=== PATIENT | male | born 1970 | race American Indian/Alaskan Native ===

== ENCOUNTER 2017-01-07 01:07 | Inpatient (IN) | payer MEDICAID, OTHER ==
[2017-01-07 01:27] VITALS: BMI 21.1
[2017-01-07] MEDS ORDERED: methylPREDNISolone 125 MG in Sodium Chloride 0.9% 50 ML IVPB STA (01:27)
[2017-01-07] MEDS ORDERED: Albuterol-Ipratrop 3 mg / 0.5 (3 ml) UD INH STA ×3 (01:28→02:57)
--- NOTE | 2017-01-07 01:46 | ED PDOC ---
HPI: Asthma Time Seen by Provider: 01/07/17 01:22 Chief Complaint (Provider): Shortness of breath History Per: Patient History/Exam Limitations: no limitations Onset/Duration Of Symptoms: Hrs Current Symptoms Are (Timing): Still Present Associated Symptoms: Dyspnea, Cough. denies: Fever Precipitating Factors: Other (dust and bleach) Severity: Moderate Additional Complaint(s): Patient is a 46 year old male, who has a history of asthma, presents to the ED complaining of shortness of breath since earlier today. Shortness of breath is associated with wheezing and dry cough. Patient believes dust and bleach triggered his symptoms. Patient had 1 admission prior for asthma exacerbation. Denies fever. While in ED, patient became nauseous and vomited once PMD: none Past Medical History Reviewed: Historical Data, Nursing Documentation, Vital Signs - Medical History PMH: Asthma, Schizophrenia Denies: Diabetes, Hepatitis, HIV, HTN, Seizures, Sexually Transmitted Disease - Family History Family History: States: No Known Family Hx - Immunization History Hx Tetanus Toxoid Vaccination: No (unrecall) - Home Medications Home Medications: Ambulatory Orders Medication Instructions Recorded No Known Home Med 09/26/16 - Allergies Allergies/Adverse Reactions: Allergies Allergy/AdvReac Type Severity Reaction Status Date / Time No Known Allergies Allergy Verified 09/26/16 13:28 Review of Systems ROS Statement: Except As Marked, All Systems Reviewed And Found Negative Constitutional: Negative for: Fever Respiratory: Positive for: Cough, Shortness of Breath, Wheezing. Negative for: Sputum Gastrointestinal: Positive for: Nausea, Vomiting Physical Exam - Reviewed Nursing Documentation Reviewed: Yes Vital Signs Reviewed: Yes - Physical Exam Appears: Positive for: Non-toxic, In Acute Distress (moderate resp distress). Negative for: Well Head Exam: Positive for: ATRAUMATIC, NORMAL INSPECTION, NORMOCEPHALIC Skin: Positive for: Normal Color, Warm, DRY Eye Exam: Positive for: Normal appearance, EOMI Neck: Positive for: Normal, Painless ROM Cardiovascular/Chest: Positive for: Tachycardia. Negative for: Gallop, JVD Respiratory: Positive for: Wheezing (bilateral wheezing With prolong expiratory phase), Respiratory Distress (moderate). Negative for: Rales, Rhonchi Extremity: Positive for: Normal ROM Neurologic/Psych: Positive for: Alert, Oriented - Laboratory Results Result Diagrams: 01/07/17 02:01 01/07/17 02:01 - Critical Care Total Time (In Min): 30 Documented Critical Care: Time excludes all time spent performint seperately billable procedures Medical Decision Making Medical Decision Making: Time: Impression: moderate asthma exacerbation Plan: VBG Shock Panel BMP Drug Screen CBC CXR Albuterol 3 ml INH x2 Magnesium Sulfate Methylprednisolone Zofran 4 mg IM Peak Flow PRE/POST Tx UA 6:[address] Knowles who requested ICU screening. Dr Hernandez saw the patient and recommended bipap and admission to telemetry floor. Scribe Attestation: Documented by Christiano Recinos acting as a scribe for Christpoher Olson MD. Scribe Attestation: All medical record entries made by the Scribe were at my direction and personally dictated by me. I have reviewed the chart and agree that the record accurately reflects my personal performance of the history, physical exam, medical decision making, and the department course for this patient. I have also personally directed, reviewed, and agree with the discharge instructions and disposition. Disposition - Clinical Impression Clinical Impression: Asthma - Patient ED Disposition Is Patient to be Admitted: Yes Counseled Patient/Family Regarding: Studies Performed, Diagnosis - Disposition Disposition Time: 06:30 Condition: FAIR
[2017-01-07 01:52] LABS: VENOUS BLOOD GAS BASE EXCESS 3.2 mmol/L (0.0-2.0); VENOUS BLOOD GAS PCO2 64 mmHg (40-60)
[2017-01-07] MEDS ORDERED: Albuterol-Ipratrop 3 mg / 0.5 (3 ml) UD ONE ×2 (02:03→02:58)
[2017-01-07 02:05] LABS: BASO % 0.4 % (0.0-2.0); EOS # 0.3 K/uL (0.0-0.7); EOS % 5.2 % (0.0-4.0); HEMATOCRIT 40.1 % (35.0-51.0); LYMPH % 18.2 % (20.0-40.0); MEAN CELL VOLUME 93.6 fl (80.0-94.0); MEAN CORPUSCULAR HEMOGLOBIN 30.2 pg (27.0-31.0); MEAN CORPUSCULAR HGB CONC 32.3 g/dL (33.0-37.0); MEAN PLATELET VOLUME 8.8 fl (7.2-11.7); NEUT # 3.2 K/uL (1.8-7.0); NEUT % 58.2 % (50.0-75.0); NRBC % 0.2 % (0.0-0.0); RED CELL DISTRIBUTION WIDTH 13.8 % (11.5-14.5); WHITE BLOOD COUNT 5.4 K/uL (4.8-10.8)
[2017-01-07 02:08] LABS: CHLORIDE 103 mmol/L (98-107); SODIUM 143 mmol/l (132-148)
[2017-01-07 02:09] LABS: POTASSIUM 3.6 MMOL/L (3.6-5.0)
[2017-01-07 02:11] LABS: GFR AFRICAN-AMERICAN > 60
[2017-01-07 02:12] LABS: BLOOD UREA NITROGEN 8 mg/dl (9-20); CALCIUM 8.8 mg/dL (8.4-10.2); CARBON DIOXIDE 29 mmol/L (22-30); GLUCOSE,RANDOM 92 mg/dL (75-110)
[2017-01-07 06:17] LABS: ABG ALLEN TEST YES; ARTERIAL BLOOD GAS HCO3 26.9 mmol/L (21-28); ARTERIAL BLOOD GAS MODE N/C; ARTERIAL BLOOD GAS PH 7.36 (7.35-7.45); ARTERIAL BLOOD GAS PO2 59 mm/Hg (80-100)
--- NOTE | 2017-01-07 06:32 | CP.PCM.CON ---
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 He is presenting this morning with a one day history of increasing and worsening, moderate shortness of breath, associated with dry cough and wheezing. Called to evaluate patient in emergency room. Currently patient is comfortably sitting up, speaking in full sentences with mild fatigue after a few minutes, however without accessory muscle use. 92% on 6L NC. +wheezing appreciated on exam, ABG showed hypoxia with mild hypercarbia, will benefit from bipap, and may be admitted to telemetry. Recommend repeat ABG one hour after initiation of bipap, continuous steroid and bronchodilators around the clock. Consider CT chest if unimproved. Vitals are stable, patient is in no acute distress. ROS: per hpi all other systems reviewed and negative by me. 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, and possibly schizophrenia (per chart review), hernia FH: denies SH: +parts counterman tobacco use, denies ETOH , IVDU Meds: no known home meds NKDA Temp Pulse Resp BP Pulse Ox 98.7 F 92 H 18 110/64 92 L 01/07/17 05:49 01/07/17 06:38 01/07/17 05:49 01/07/17 05:49 01/07/17 05:49 GEN: WDWN, alert, cooperative HEENT: NCAT, PERRL, EOMI NECK: supple, no JVD, no lymphadenopathy CARDIAC: +S1S2 RRR LUNG: +diffuse expiratory wheezes bilaterally, no rales or rhonchi, no acute distress ABD: SOFT NT ND BSX4 NO MASSES NO HSM EXT: +pedal pulses, equal strength Back: no rash, no CVA tenderness NEURO: AAOx3 SKIN warm, dry PSYCH normal mood, normal affect 01/07/17 02:01 01/07/17 02:01 01/07/17 01/07/17 01/07/17 06:12 03:17 02:01 WBC 5.4 RBC 4.28 L Hgb 12.9 Hct 40.1 MCV 93.6 MCH 30.2 MCHC 32.3 L RDW 13.8 Plt Count 168 MPV 8.8 Neut % (Auto) 58.2 Lymph % (Auto) 18.2 L [place] % (Auto) 18.0 H Eos % (Auto) 5.2 H Baso % (Auto) 0.4 Neut # 3.2 Lymph # 1.0 [place] # 1.0 H Eos # 0.3 Baso # 0.0 pCO2 52 H pO2 59 L HCO3 26.9 ABG pH 7.36 ABG Total CO2 31.0 H ABG O2 Saturation 95.7 ABG Base Excess 2.8 Jam Test Yes ABG Potassium 4.0 VBG pH VBG pCO2 VBG HCO3 VBG Total CO2 VBG O2 Sat (Calc) VBG Base Excess VBG Potassium A-a O2 Difference 133.0 Sodium 135.0 143 Chloride 105.0 103 Glucose 181 H Lactate 0.7 Vent Mode N/c FiO2 36.0 Blood Gas Notified Time 617 Potassium 3.6 Carbon Dioxide 29 Anion Gap 15 BUN 8 L Creatinine 0.8 Est GFR ( Amer) > 60 Est GFR (Non-Af Amer) > 60 Random Glucose 92 Calcium 8.8 Arterial Blood Potassium 4.0 Venous Blood Potassium Alcohol, Quantitative < 10 This is a 46 year old male with past medical history of DM2, asthma (per chart review) 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 He is presenting this morning with a one day history of increasing and worsening, moderate shortness of breath, associated with dry cough and wheezing. Called to evaluate patient in emergency room. Currently patient is comfortably sitting up , speaking in full sentences with mild fatigue after a few minutes, however without accessory muscle use. 92% on 6L NC. +wheezing appreciated on exam, ABG showed hypoxia with mild hypercarbia, will benefit from bipap, and may be admitted to telemetry. Recommend repeat ABG one hour after initiation of bipap, continuous steroid and bronchodilators around the clock. Consider CT chest if unimproved. Vitals are stable, patient is in no acute distress. Asthma/COPD exacerbation with hypoxia and hypercarbia - comfortably sitting up, speaking in full sentences with mild fatigue after a few minutes, however without accessory muscle use. - pt HD stable, currently 92% on 6L, placed on BIPAP in ER 09/01/14/100% - Recommend repeat ABG one hour after initiation of bipap - continuous steroid and bronchodilators around the clock. - patient is stable for admission to telemetry on bipap Past Patient History - Infectious Disease Hx of Infectious Diseases: None - Past Social History Smoking Status: Current Some Days Smoker - CARDIAC Hx Hypertension: No - PULMONARY Hx Asthma: Yes - NEUROLOGICAL Hx Seizures: No - ENDOCRINE/METABOLIC Hx Diabetes Mellitus Type 2: Yes - HEMATOLOGICAL/ONCOLOGICAL Hx Human Immunodeficiency Virus (HIV): No - GASTROINTESTINAL Hx Gastrointestinal Disorders: Yes Other/Comment: right inguinal hernia - GENITOURINARY/GYNECOLOGICAL Hx Sexually Transmitted Disorders: No - PSYCHIATRIC Hx Schizophrenia: Yes - SURGICAL HISTORY Hx Surgeries: No - ANESTHESIA Hx Anesthesia: No Hx Anesthesia Reactions: No Hx Malignant Hyperthermia: No Meds Allergies/Adverse Reactions: Allergies Allergy/AdvReac Type Severity Reaction Status Date / Time No Known Allergies Allergy Verified 09/26/16 13:28 Results - Vital Signs Recent Vital Signs: Last Vital Signs Temp 98.7 F 01/07/17 05:49 Pulse 85 01/07/17 05:49 Resp 18 01/07/17 05:49 BP 110/64 01/07/17 05:49 Pulse Ox 92 L 01/07/17 05:49 - Labs Result Diagrams: 01/07/17 02:01 01/07/17 02:01 Labs: Laboratory Results - last 24 hr 01/07/17 01/07/17 01/07/17 01:40 02:01 03:17 WBC 5.4 RBC 4.28 L Hgb 12.9 Hct 40.1 MCV 93.6 MCH 30.2 MCHC 32.3 L RDW 13.8 Plt Count 168 MPV 8.8 Neut % (Auto) 58.2 Lymph % (Auto) 18.2 L [place] % (Auto) 18.0 H Eos % (Auto) 5.2 H Baso % (Auto) 0.4 Neut # 3.2 Lymph # 1.0 [place] # 1.0 H Eos # 0.3 Baso # 0.0 pCO2 pO2 28 L HCO3 ABG pH ABG Total CO2 ABG O2 Saturation ABG Base Excess Jam Test ABG Potassium VBG pH 7.30 L VBG pCO2 64 H VBG HCO3 26.0 VBG Total CO2 33.5 H VBG O2 Sat (Calc) 56.7 VBG Base Excess 3.2 H VBG Potassium 3.5 L A-a O2 Difference Sodium 140.0 143 Chloride 106.0 103 Glucose 92 Lactate 1.5 Vent Mode FiO2 21.0 Blood Gas Notified Time 153 Potassium 3.6 Carbon Dioxide 29 Anion Gap 15 BUN 8 L Creatinine 0.8 Est GFR ( Amer) > 60 Est GFR (Non-Af Amer) > 60 Random Glucose 92 Calcium 8.8 Arterial Blood Potassium Venous Blood Potassium 3.5 L Alcohol, Quantitative < 10 01/07/17 06:12 WBC RBC Hgb Hct MCV MCH MCHC RDW Plt Count MPV Neut % (Auto) Lymph % (Auto) [place] % (Auto) Eos % (Auto) Baso % (Auto) Neut # Lymph # [place] # Eos # Baso # pCO2 52 H pO2 59 L HCO3 26.9 ABG pH 7.36 ABG Total CO2 31.0 H ABG O2 Saturation 95.7 ABG Base Excess 2.8 Jam Test Yes ABG Potassium 4.0 VBG pH VBG pCO2 VBG HCO3 VBG Total CO2 VBG O2 Sat (Calc) VBG Base Excess VBG Potassium A-a O2 Difference 133.0 Sodium 135.0 Chloride 105.0 Glucose 181 H Lactate 0.7 Vent Mode N/c FiO2 36.0 Blood Gas Notified Time 617 Potassium Carbon Dioxide Anion Gap BUN Creatinine Est GFR ( Amer) Est GFR (Non-Af Amer) Random Glucose Calcium Arterial Blood Potassium 4.0 Venous Blood Potassium Alcohol, Quantitative
--- NOTE | 2017-01-07 09:54 | RAD ---
PROCEDURE: CHEST RADIOGRAPH, 1 VIEW HISTORY: asthma, SOB COMPARISON: 03/08/2014 FINDINGS: LUNGS: There is peribronchial thickening. No focal consolidation PLEURA: No pneumothorax or pleural fluid seen. CARDIOVASCULAR: Normal. OSSEOUS STRUCTURES: No significant abnormalities. VISUALIZED UPPER ABDOMEN: Normal. OTHER FINDINGS: None. IMPRESSION: Peribronchial thickening. No evidence of pneumonia
[2017-01-07] MEDS: Azithromycin 500 MG in Sodium Chloride 0.9% 250 ML IVPB SCH (16:22)
[2017-01-07] MEDS: methylPREDNISolone 60 MG in Sodium Chloride 0.9% 50 ML IVPB SCH (17:06)
[2017-01-07] MEDS: Albuterol-Ipratrop 3 mg / 0.5 (3 ml) UD INH SCH ×2 (17:30→19:45)
--- NOTE | 2017-01-07 21:09 | CT ---
EXAM: CT Chest Without Intravenous Contrast CLINICAL HISTORY: 46 years old, male; Signs and symptoms; Shortness of breath TECHNIQUE: Axial computed tomography images of the chest without intravenous contrast. This CT exam was performed using one or more of the following dose reduction techniques: automated exposure control, adjustment of the mA and/or kV according to patient size, and/or use of iterative reconstruction technique. Coronal and sagittal reformatted images were created and reviewed. COMPARISON: No relevant prior studies available. FINDINGS: Lungs: Minimal atelectasis/scarring. No mass. No consolidation. Pleural space: No pneumothorax. No significant effusion. Heart: No cardiomegaly. No significant pericardial effusion. Bones: Mild degenerative changes. No acute fracture. Vasculature: Limited evaluation without contrast. No thoracic aortic aneurysm. Lymph nodes: Shotty mediastinal nodes. Limited evaluation of the letty without contrast. Other findings: Approximately 15 mm hypoattenuating lesion in the right kidney. IMPRESSION: No definitive acute CT finding to correspond to reported history. Please see details/findings as above. Correlate clinically. Followup as warranted.
--- NOTE | 2017-01-07 22:05 | CP.PCM.HP ---
History of Present Illness - History of Present Illness History of Present Illness: Patient is a 46 year old male, who has a history of asthma, presents to the ED complaining of shortness of breath since earlier today. Shortness of breath is associated with wheezing and dry cough. Patient notes he does use heroin daily. 1 week hx of cough\cold. smokes heavily. no hx of intubation in past. abg- showed hypoxia Present on Admission - Present on Admission Any Indicators Present on Admission: No Review of Systems - Review of Systems Systems not reviewed;Unavailable: Respiratory Distress - Constitutional Constitutional: absent: Chills, Fever, Weight Loss - EENT Nose/Mouth/Throat: Nasal Congestion, Hoarsness - Cardiovascular Cardiovascular: Dyspnea, Palpitations. absent: Chest Pain, Pedal Edema - Respiratory Respiratory: Cough, Wheezing. absent: Hemoptysis, Snoring, Stridor, Excessive Mucous Production - Gastrointestinal Gastrointestinal: absent: Abdominal Pain, Constipation, Nausea, Vomiting - Musculoskeletal Musculoskeletal: absent: Arthralgias - Integumentary Integumentary: absent: Non-Healing Lesions - Neurological Neurological: absent: Confusion, Focal Weakness - Endocrine Endocrine: Palpitations Past Patient History - Infectious Disease Hx of Infectious Diseases: None - Past Social History Smoking Status: Heavy Smoker > 10 Cigarettes Daily - CARDIAC Hx Hypertension: No - PULMONARY Hx Asthma: Yes - NEUROLOGICAL Hx Seizures: No - ENDOCRINE/METABOLIC Hx Diabetes Mellitus Type 2: Yes - HEMATOLOGICAL/ONCOLOGICAL Hx AIDS: No Hx Human Immunodeficiency Virus (HIV): No - MUSCULOSKELETAL/RHEUMATOLOGICAL Hx Falls: No - GASTROINTESTINAL Hx Gastrointestinal Disorders: Yes Other/Comment: right inguinal hernia - GENITOURINARY/GYNECOLOGICAL Hx Sexually Transmitted Disorders: No - PSYCHIATRIC Hx Substance Use: Yes - SURGICAL HISTORY Hx Surgeries: No - ANESTHESIA Hx Anesthesia: No Hx Anesthesia Reactions: No Hx Malignant Hyperthermia: No Meds Allergies/Adverse Reactions: Allergies Allergy/AdvReac Type Severity Reaction Status Date / Time No Known Allergies Allergy Verified 09/26/16 13:28 Physical Exam - Constitutional Appears: In Acute Distress Additional comments: on BIPAP. unable to complete full sentences. - Eye Exam Eye Exam: EOMI, Normal appearance Pupil Exam: PERRL - ENT Exam ENT Exam: Normal Exam - Respiratory Exam Respiratory Exam: Wheezes, Respiratory Distress. absent: Stridor - Cardiovascular Exam Cardiovascular Exam: Tachycardia, +S1, +S2 - GI/Abdominal Exam GI & Abdominal Exam: Normal Bowel Sounds, Soft. absent: Distended, Tenderness - Neurological Exam Neurological exam: Alert, CN II-XII Intact, Oriented x3 - Psychiatric Exam Psychiatric exam: Normal Affect, Normal Mood - Skin Skin Exam: Intact Results - Vital Signs Recent Vital Signs: Last Vital Signs Temp 99.1 F 01/07/17 20:02 Pulse 89 01/07/17 21:39 Resp 18 01/07/17 20:02 BP 130/88 01/07/17 20:02 Pulse Ox 94 L 01/07/17 20:02 - Labs Result Diagrams: 01/09/17 05:57 01/09/17 05:57 - EKG Data EKG Interpreted by: Other - Imaging and Cardiology Chest x-ray Status: Report reviewed by me Assessment & Plan (1) Asthma exacerbation Status: Acute (2) Substance abuse Status: Chronic (3) Substance abuse Status: Acute (4) Tobacco use Status: Acute - Assessment and Plan (Free Text) Plan: 1. iv abx nebs RTC icu called- advise continue bipap steroids IV ABG daily 2. nicotine patch 3. UDOA-poly drug positive discussed with pateint 4. HIV negative 5. CT chest Decision To Admit - Pt Status Changed To: Hospital Disposition Of: Inpatient - Admit Certification Admit to Inpatient:: After my assessment, the patient will require hospitalization for at least two midnights. This is because of the severity of symptoms shown, intensity of services needed, and/or the medical risk in this patient being treated as an outpatient. - . Bed Request Type: Telemetry Admitting Physician: Stephanie Knowles
[2017-01-07 22:37] LABS: RBC URINE 1 /hpf (0-3); URINE BACTERIA RARE (<OCC); URINE BILIRUBIN NEGATIVE (NEGATIVE); URINE BLOOD NEGATIVE (NEGATIVE); URINE COLOR LT YELLOW (YELLOW); URINE GLUCOSE (UA) NEGATIVE (Normal); URINE KETONE NEGATIVE (NEGATIVE); URINE LEUKOCYTE ESTERASE NEGATIVE Leu/uL (Negative); URINE PROTEIN NEGATIVE (NEGATIVE); URINE UROBILINOGEN 0.2 mg/dL (0.2-1.0); WBC URINE 1 /hpf (0-5)
[2017-01-07] MEDS: Fluticasone-Salmeterol 250-50mcg Diskus IH SCH (23:00)
[2017-01-08] MEDS: methylPREDNISolone 60 MG in Sodium Chloride 0.9% 50 ML IVPB SCH ×3 (00:03→18:09)
[2017-01-08] MEDS: Albuterol-Ipratrop 3 mg / 0.5 (3 ml) UD INH SCH ×4 (00:03→19:16)
[2017-01-08] MEDS: Fluticasone-Salmeterol 250-50mcg Diskus IH SCH ×2 (08:56→22:09)
[2017-01-08] MEDS: Azithromycin 500 MG in Sodium Chloride 0.9% 250 ML IVPB SCH (09:13)
[2017-01-08 14:56] LABS: ABG ALLEN TEST YES; ARTERIAL BLOOD GAS HCO3 28.3 mmol/L (21-28); ARTERIAL BLOOD GAS O2 CAPACITY 19.1 mL/dL (16-24); ARTERIAL BLOOD GAS O2 CONTENT 17.9 ML/dL (15-23); ARTERIAL BLOOD GAS PH 7.45 (7.35-7.45); ARTERIAL BLOOD GAS PO2 57 mm/Hg (80-100); HHB 6.3 % (0.0-5.0); METHEMOGLOBIN 1.7 % (0.0-3.0)
[2017-01-09] MEDS: Albuterol-Ipratrop 3 mg / 0.5 (3 ml) UD INH SCH ×4 (00:59→19:53)
--- NOTE | 2017-01-09 01:24 | CP.PCM.PN ---
Subjective - Date & Time of Evaluation Date of Evaluation: 01/08/17 Time of Evaluation: 10:00 - Subjective Subjective: still wheezing, feels little better with SOB. still unable to speak in full. ct chest-negative for pneumonia Objective - Vital Signs/Intake and Output Vital Signs (last 24 hours): Temp Pulse Resp BP Pulse Ox 98.6 F 62 20 135/76 95 01/09/17 00:09 01/09/17 00:09 01/09/17 00:09 01/09/17 00:09 01/09/17 00:09 - Medications Medications: Current Medications Albuterol/Ipratropium (Duoneb 3 Mg/0.5 Mg (3 Ml) Ud) 3 ml INH RQ6 [facility] Last Admin: 01/09/17 00:59 Dose: 3 ml Methylprednisolone 60 mg/ (Sodium Chloride) 50.96 mls @ 100 mls/hr IVPB Q8 [facility] Last Admin: 01/08/17 18:09 Dose: 100 mls/hr Azithromycin 500 mg/ Sodium (Chloride) 250 mls @ 250 mls/hr IVPB DAILY [facility] Last Admin: 01/08/17 09:13 Dose: 250 mls/hr Nicotine (Nicoderm Cq) 1 patch TD DAILY [facility] Last Admin: 01/08/17 12:25 Dose: 1 patch Fluticasone/Salmeterol (Advair Diskus 250/50) 1 puff IH Q12 [facility] Last Admin: 01/08/17 22:09 Dose: 1 puff - Additional Findings Additional findings: - Constitutional Appears: In Acute Distress Additional comments: on BIPAP. unable to complete full sentences. - Eye Exam Eye Exam: EOMI, Normal appearance Pupil Exam: PERRL - ENT Exam ENT Exam: Normal Exam - Respiratory Exam Respiratory Exam: Wheezes b\l , Respiratory Distress. absent: Stridor - Cardiovascular Exam Cardiovascular Exam: Tachycardia, +S1, +S2 - GI/Abdominal Exam GI & Abdominal Exam: Normal Bowel Sounds, Soft. absent: Distended, Tenderness - Neurological Exam Neurological exam: Alert, CN II-XII Intact, Oriented x3 - Psychiatric Exam Psychiatric exam: Normal Affect, Normal Mood - Skin Skin Exam: Intact Assessment and Plan (1) Asthma exacerbation Status: Acute (2) Substance abuse Status: Chronic (3) Tobacco use Status: Acute - Assessment and Plan (Free Text) Plan: 1. continue BIPAP if gets worse will call pulmonology 2.not in withdrawal.
[2017-01-09] MEDS: methylPREDNISolone 60 MG in Sodium Chloride 0.9% 50 ML IVPB SCH ×3 (01:32→17:01)
[2017-01-09 06:23] LABS: HEMATOCRIT 42.4 % (35.0-51.0); MEAN CELL VOLUME 93.4 fl (80.0-94.0); MEAN CORPUSCULAR HEMOGLOBIN 30.3 pg (27.0-31.0); MEAN CORPUSCULAR HGB CONC 32.5 g/dL (33.0-37.0); RED CELL DISTRIBUTION WIDTH 13.7 % (11.5-14.5); WHITE BLOOD COUNT 6.5 K/uL (4.8-10.8)
[2017-01-09 06:37] LABS: BLOOD UREA NITROGEN 14 mg/dl (9-20); CALCIUM 9.7 mg/dL (8.4-10.2); CARBON DIOXIDE 24 mmol/L (22-30); CHLORIDE 102 mmol/L (98-107); GFR AFRICAN-AMERICAN > 60; GLUCOSE,RANDOM 186 mg/dL (75-110); POTASSIUM 4.1 MMOL/L (3.6-5.0); SODIUM 142 mmol/l (132-148)
[2017-01-09] MEDS: Fluticasone-Salmeterol 250-50mcg Diskus IH SCH ×2 (09:59→21:06)
[2017-01-09] MEDS: Azithromycin 500 MG in Sodium Chloride 0.9% 250 ML IVPB SCH (10:41)
--- NOTE | 2017-01-10 00:11 | CP.PCM.PN ---
Subjective - Date & Time of Evaluation Date of Evaluation: 01/09/17 Time of Evaluation: 09:00 - Subjective Subjective: feeling better than before.able to speak better. ABG-normalised pco2. still hypoxic .USING biPAP. Objective - Vital Signs/Intake and Output Vital Signs (last 24 hours): Temp Pulse Resp BP Pulse Ox 97.7 F 95 H 18 114/75 95 01/09/17 20:35 01/09/17 20:44 01/09/17 20:35 01/09/17 20:35 01/09/17 20:35 Intake and Output: 01/09/17 01/10/17 18:59 06:59 Intake Total 1210 Balance 1210 - Medications Medications: Current Medications Albuterol/Ipratropium (Duoneb 3 Mg/0.5 Mg (3 Ml) Ud) 3 ml INH RQ6 [facility] Last Admin: 01/09/17 19:53 Dose: 3 ml Methylprednisolone 60 mg/ (Sodium Chloride) 50.96 mls @ 100 mls/hr IVPB Q8 [facility] Last Admin: 01/09/17 17:01 Dose: 100 mls/hr Azithromycin 500 mg/ Sodium (Chloride) 250 mls @ 250 mls/hr IVPB DAILY [facility] Last Admin: 01/09/17 10:41 Dose: 250 mls/hr Nicotine (Nicoderm Cq) 1 patch TD DAILY [facility] Last Admin: 01/09/17 10:00 Dose: 1 patch Fluticasone/Salmeterol (Advair Diskus 250/50) 1 puff IH Q12 [facility] Last Admin: 01/09/17 21:06 Dose: 1 puff - Labs Labs: 01/09/17 05:57 01/09/17 05:57 - Additional Findings Additional findings: - Constitutional Appears: In Acute Distress Additional comments: on BIPAP. unable to complete full sentences. - Eye Exam Eye Exam: EOMI, Normal appearance Pupil Exam: PERRL - ENT Exam ENT Exam: Normal Exam - Respiratory Exam Respiratory Exam: Wheezes B\L SCATTERED., Respiratory Distress. absent: Stridor - Cardiovascular Exam Cardiovascular Exam: Tachycardia, +S1, +S2 - GI/Abdominal Exam GI & Abdominal Exam: Normal Bowel Sounds, Soft. absent: Distended, Tenderness - Neurological Exam Neurological exam: Alert, CN II-XII Intact, Oriented x3 - Psychiatric Exam Psychiatric exam: Normal Affect, Normal Mood - Skin Skin Exam: Intact Assessment and Plan (1) Asthma exacerbation Status: Acute (2) Tobacco use Status: Acute (3) Substance abuse Status: Chronic - Assessment and Plan (Free Text) Plan: CONTINUE CARE ABG in am will try to wean from BIPAP
[2017-01-10] MEDS: Albuterol-Ipratrop 3 mg / 0.5 (3 ml) UD INH SCH ×3 (01:06→14:00)
[2017-01-10] MEDS: Fluticasone-Salmeterol 250-50mcg Diskus IH SCH (09:45)
[2017-01-10] MEDS: methylPREDNISolone 40 MG in Sodium Chloride 0.9% 50 ML IV SCH ×2 (09:46→17:58)
[2017-01-10] MEDS: Azithromycin 500 MG in Sodium Chloride 0.9% 250 ML IVPB SCH (10:30)
[2017-01-10 15:36] VITALS: BP 129/73; PULSE 104; RESP 18; TEMP 97.8; O2SAT 94
--- NOTE | 2017-01-10 22:18 | CP.PCM.PN ---
Subjective - Date & Time of Evaluation Date of Evaluation: 01/10/17 Time of Evaluation: 10:00 - Subjective Subjective: able to saturate ok on Nasal canula . labs noted Objective - Vital Signs/Intake and Output Vital Signs (last 24 hours): Temp Pulse Resp BP Pulse Ox 97.8 F 104 H 18 129/73 94 L 01/10/17 15:35 01/10/17 15:35 01/10/17 15:35 01/10/17 15:35 01/10/17 15:35 Intake and Output: 01/10/17 01/11/17 18:59 06:59 Intake Total 1700 Balance 1700 - Labs Labs: 01/09/17 05:57 01/09/17 05:57 - Head Exam Additional comments: - Constitutional Appears: In Acute Distress Additional comments: on BIPAP. unable to complete full sentences. - Eye Exam Eye Exam: EOMI, Normal appearance Pupil Exam: PERRL - ENT Exam ENT Exam: Normal Exam - Respiratory Exam Respiratory Exam: no Wheezes, not in Respiratory Distress. absent: Stridor - Cardiovascular Exam Cardiovascular Exam: Tachycardia, +S1, +S2 - GI/Abdominal Exam GI & Abdominal Exam: Normal Bowel Sounds, Soft. absent: Distended, Tenderness - Neurological Exam Neurological exam: Alert, CN II-XII Intact, Oriented x3 - Psychiatric Exam Psychiatric exam: Normal Affect, Normal Mood - Skin Skin Exam: Intact - Additional Findings Additional findings: - Constitutional Appears: In Acute Distress Additional comments: on BIPAP. unable to complete full sentences. - Eye Exam Eye Exam: EOMI, Normal appearance Pupil Exam: PERRL - ENT Exam ENT Exam: Normal Exam - Respiratory Exam Respiratory Exam: Wheezes, Respiratory Distress. absent: Stridor - Cardiovascular Exam Cardiovascular Exam: Tachycardia, +S1, +S2 - GI/Abdominal Exam GI & Abdominal Exam: Normal Bowel Sounds, Soft. absent: Distended, Tenderness - Neurological Exam Neurological exam: Alert, CN II-XII Intact, Oriented x3 - Psychiatric Exam Psychiatric exam: Normal Affect, Normal Mood - Skin Skin Exam: Intact Assessment and Plan (1) Asthma exacerbation Status: Acute (2) Tobacco use Status: Chronic (3) Substance abuse Status: Chronic
--- NOTE | 2017-01-24 17:20 | CP.PCM.DIS ---
Provider - Provider Date of Admission: 01/07/17 06:20 Attending physician: Stephanie Knowles MD Time Spent in preparation of Discharge (in minutes): 5 Diagnosis - Discharge Diagnosis (1) Asthma exacerbation Status: Acute (2) Tobacco use Status: Chronic (3) Substance abuse Status: Chronic Hospital Course - Lab Results Lab Results: Most Recent Lab Values WBC 6.5 K/uL (4.8-10.8) 01/09/17 05:57 RBC 4.54 Mil/uL (4.40-5.90) 01/09/17 05:57 Hgb 13.8 g/dL (12.0-18.0) 01/09/17 05:57 Hct 42.4 % (35.0-51.0) 01/09/17 05:57 MCV 93.4 fl (80.0-94.0) 01/09/17 05:57 MCH 30.3 pg (27.0-31.0) 01/09/17 05:57 MCHC 32.5 g/dL (33.0-37.0) L 01/09/17 05:57 RDW 13.7 % (11.5-14.5) 01/09/17 05:57 Plt Count 206 K/uL (130-400) 01/09/17 05:57 MPV 8.8 fl (7.2-11.7) 01/07/17 02:01 Neut % (Auto) 58.2 % (50.0-75.0) 01/07/17 02:01 Lymph % (Auto) 18.2 % (20.0-40.0) L 01/07/17 02:01 [place] % (Auto) 18.0 % (0.0-10.0) H 01/07/17 02:01 Eos % (Auto) 5.2 % (0.0-4.0) H 01/07/17 02:01 Baso % (Auto) 0.4 % (0.0-2.0) 01/07/17 02:01 Neut # 3.2 K/uL (1.8-7.0) 01/07/17 02:01 Lymph # 1.0 K/uL (1.0-4.3) 01/07/17 02:01 [place] # 1.0 K/uL (0.0-0.8) H 01/07/17 02:01 Eos # 0.3 K/uL (0.0-0.7) 01/07/17 02:01 Baso # 0.0 K/uL (0.0-0.2) 01/07/17 02:01 pCO2 42 mm/Hg (35-45) 01/08/17 14:00 pO2 57 mm/Hg (80-100) L 01/08/17 14:00 HCO3 28.3 mmol/L (21-28) H 01/08/17 14:00 ABG pH 7.45 (7.35-7.45) 01/08/17 14:00 ABG Total CO2 30.5 mmol/L (22-28) H 01/08/17 14:00 ABG O2 Saturation 93.5 % (95-98) L 01/08/17 14:00 ABG O2 Content 17.9 ML/dL (15-23) 01/08/17 14:00 ABG Base Excess 4.6 mmol/L (-2.0-3.0) H 01/08/17 14:00 ABG Hemoglobin 14.2 g/dL (11.7-17.4) 01/08/17 14:00 ABG Carboxyhemoglobin 2.0 % (0.5-1.5) H 01/08/17 14:00 POC ABG HHb (Measured) 6.3 % (0.0-5.0) H 01/08/17 14:00 ABG Methemoglobin 1.7 % (0.0-3.0) 01/08/17 14:00 ABG O2 Capacity 19.1 mL/dL (16-24) 01/08/17 14:00 Jam Test Yes 01/08/17 14:00 ABG Potassium 4.0 mmol/L (3.6-5.2) 01/07/17 06:12 VBG pH 7.30 (7.32-7.43) L 01/07/17 01:40 VBG pCO2 64 mmHg (40-60) H 01/07/17 01:40 VBG HCO3 26.0 mmol/L 01/07/17 01:40 VBG Total CO2 33.5 mmol/L (22-28) H 01/07/17 01:40 VBG O2 Sat (Calc) 56.7 % (40-65) 01/07/17 01:40 VBG Base Excess 3.2 mmol/L (0.0-2.0) H 01/07/17 01:40 VBG Potassium 3.5 mmol/L (3.6-5.2) L 01/07/17 01:40 A-a O2 Difference 126.0 mm/Hg 01/08/17 14:00 Hgb O2 Saturation 90.0 % (95.0-98.0) L 01/08/17 14:00 Sodium 135.0 mmol/L (132-148) 01/07/17 06:12 Chloride 105.0 mmol/L (98-107) 01/07/17 06:12 Glucose 181 mg/dL (75-110) H 01/07/17 06:12 Lactate 0.7 mmol/L (0.7-2.1) 01/07/17 06:12 Vent Mode N/c 01/07/17 06:12 FiO2 33.0 % 01/08/17 14:00 Blood Gas Comments 3/m nc,rr 01/08/17 14:00 Crit Value Read Back N 01/08/17 14:00 Blood Gas Notified Time 617 01/07/17 06:12 Sodium 142 mmol/l (132-148) 01/09/17 05:57 Potassium 4.1 MMOL/L (3.6-5.0) 01/09/17 05:57 Chloride 102 mmol/L (98-107) 01/09/17 05:57 Carbon Dioxide 24 mmol/L (22-30) 01/09/17 05:57 Anion Gap 19 (10-20) 01/09/17 05:57 BUN 14 mg/dl (9-20) 01/09/17 05:57 Creatinine 0.7 mg/dL (0.8-1.5) L 01/09/17 05:57 Est GFR ( Amer) > 60 01/09/17 05:57 Est GFR (Non-Af Amer) > 60 01/09/17 05:57 Random Glucose 186 mg/dL (75-110) H 01/09/17 05:57 Calcium 9.7 mg/dL (8.4-10.2) 01/09/17 05:57 Arterial Blood Potassium 4.0 mmol/L (3.6-5.2) 01/07/17 06:12 Venous Blood Potassium 3.5 mmol/L (3.6-5.2) L 01/07/17 01:40 Urine Color Lt yellow (YELLOW) 01/07/17 21:00 Urine Clarity Clear (Clear) 01/07/17 21:00 Urine pH 7.0 (5.0-8.0) 01/07/17 21:00 Ur Specific [place] 1.010 (1.003-1.030) 01/07/17 21:00 Urine Protein Negative mg/dL (NEGATIVE) 01/07/17 21:00 Urine Glucose (UA) Negative mg/dL (Normal) 01/07/17 21:00 Urine Ketones Negative mg/dL (NEGATIVE) 01/07/17 21:00 Urine Blood Negative (NEGATIVE) 01/07/17 21:00 Urine Nitrate Negative (NEGATIVE) 01/07/17 21:00 Urine Bilirubin Negative (NEGATIVE) 01/07/17 21:00 Urine Urobilinogen 0.2 mg/dL (0.2-1.0) 01/07/17 21:00 Ur Leukocyte Esterase Negative Vijaya/uL (Negative) 01/07/17 21:00 Urine RBC (Auto) 1 /hpf (0-3) 01/07/17 21:00 Urine Microscopic WBC 1 /hpf (0-5) 01/07/17 21:00 Ur Squamous Epith Cells 1 /hpf (0-5) 01/07/17 21:00 Amorphous Sediment Few /ul (<OCC) H 01/07/17 21:00 Urine Bacteria Rare (<OCC) 01/07/17 21:00 Urine Opiates Screen Positive (NEGATIVE) H 01/07/17 21:00 Urine Methadone Screen Negative (NEGATIVE) 01/07/17 21:00 Ur Barbiturates Screen Negative (NEGATIVE) 01/07/17 21:00 Ur Phencyclidine Scrn Positive (NEGATIVE) H 01/07/17 21:00 Ur Amphetamines Screen Negative (NEGATIVE) 01/07/17 21:00 U Benzodiazepines Scrn Negative (NEGATIVE) 01/07/17 21:00 U Oth Cocaine Metabols Positive (NEGATIVE) H 01/07/17 21:00 U Cannabinoids Screen Negative (NEGATIVE) 01/07/17 21:00 Alcohol, Quantitative < 10 mg/dl (0-10) 01/07/17 03:17 HIV-1 Ab Rapid Screen Non reactive (NON REAC) 01/08/17 15:09 - Hospital Course Hospital Course: signesd out AMA, discussed over the phone about respiratory failure including . Discharge Exam - Head Exam Head Exam: ATRAUMATIC, NORMAL INSPECTION, NORMOCEPHALIC Discharge Plan - Follow Up Plan Condition: FAIR Disposition: AGAINST MEDICAL ADVICE
== END 2017-01-10 18:00 | disposition left against medical advice (07) | DRG 96 ==
LOC: H.ER 01:07 → H.ERHOLD 06:20 → H.TEL 08:34
PROVIDERS: ADMIT Internal Medicine; ATTEND Internal Medicine
PROC: 5A09357 Assistance with Respiratory Ventilation, Less than 24 Consecutive Hours, Continuous Positive Airway Pressure (ICD-10-PCS; principal; 2017-01-07)
PROC: 3E0F73Z Introduction of Anti-inflammatory into Respiratory Tract, Via Natural or Artificial Opening (ICD-10-PCS; 2017-01-07)
DX: J45.901 Unspecified asthma with (acute) exacerbation (principal); J44.1 Chronic obstructive pulmonary disease with (acute) exacerbation; R09.02 Hypoxemia; F20.9 Schizophrenia, unspecified; E11.9 Type 2 diabetes mellitus without complications; F17.210 Nicotine dependence, cigarettes, uncomplicated

== ENCOUNTER 2017-03-12 02:21 | Emergency (ER) | payer SELFPAY ==
[2017-03-12 02:21] VITALS: BMI 21.1
[2017-03-12 02:58] VITALS: BP 138/89; PULSE 86; RESP 16; TEMP 98.6; O2SAT 100
== END 2017-03-12 03:01 | disposition home or self-care (01) ==
LOC: H.ER 02:21
DX: Z02.89 Encounter for other administrative examinations (principal)

== ENCOUNTER 2017-04-17 22:45 | Emergency (ER) | payer MEDICAID, OTHER ==
[2017-04-17 22:45] VITALS: BMI 21.1
[2017-04-17 22:50] VITALS: BP 134/68; PULSE 75; RESP 16; TEMP 98.5; O2SAT 95
--- NOTE | 2017-04-17 23:23 | ED PDOC ---
HPI: General Adult Time Seen by Provider: 04/17/17 22:52 Chief Complaint (Nursing): Male Genitourinary History Per: Patient Additional Complaint(s): Pt. states for approximately 4 years he's had pain in the R groin area which radiates down to his R side of scrotum. Pt. was diagnosed with an inguinal hernia. Pt. admits to being evaluated multiple times in different EDs for this complaint and was advised to go to [facility] but has never done so. Pt. states he is unable to find money for a ride to get to the clinic. Reports hernia and pain have been the same for the past 2 years. Denies abdominal pain, fever, testicular pain, dysuria, hematuria, penile discharge, trauma. Past Medical History Vital Signs: Last Vital Signs Temp 98.5 F 04/17/17 22:48 Pulse 75 04/17/17 22:48 Resp 16 04/17/17 22:48 BP 134/68 04/17/17 22:48 Pulse Ox 95 04/17/17 22:48 - Medical History PMH: Asthma, Schizophrenia Denies: Diabetes, Hepatitis, HIV, HTN, Seizures, Sexually Transmitted Disease - Family History Family History: States: No Known Family Hx - Immunization History Hx Tetanus Toxoid Vaccination: No (unrecall) - Home Medications Home Medications: Ambulatory Orders Medication Instructions Recorded Naproxen [Naprosyn] 500 mg PO BID PRN #30 tab 04/17/17 - Allergies Allergies/Adverse Reactions: Allergies Allergy/AdvReac Type Severity Reaction Status Date / Time No Known Allergies Allergy Verified 09/26/16 13:28 Review of Systems ROS Statement: Except As Marked, All Systems Reviewed And Found Negative Physical Exam - Physical Exam Appears: Positive for: Well, Non-toxic, No Acute Distress Skin: Positive for: Normal Color, Warm. Negative for: Rash Gastrointestinal/Abdominal: Positive for: Normal Exam, Bowel Sounds, Soft. Negative for: Tenderness (to deep palpation), Mass, Guarding Male Genital Exam: Positive for: normal genitalia, hernia mass (R inguinal hernia which is reducible), other (cremasteric reflex present b/l). Negative for: lesions, scrotum tenderness (R), scrotum tenderness (L), testicular tenderness (R), testicular tenderness (L) - ECG O2 Sat by Pulse Oximetry: 95 - Progress ED Course And Treament: Toradol 15mg IM given. After pt. was given shot. Pt. requested food. Food and drink given. Seen walking out of ED in no distress with steady gait. Disposition - Clinical Impression Clinical Impression: Inguinal hernia - Patient ED Disposition Is Patient to be Admitted: No - Disposition Referrals: [facility] [Outside] Disposition: Routine/Home Disposition Time: 23:26 Condition: STABLE Prescriptions: Naproxen [Naprosyn] 500 mg PO BID PRN #30 tab PRN Reason: Pain Instructions: Inguinal Hernia (ED) Print Language: MEXICAN
== END 2017-04-17 23:34 | disposition home or self-care (01) ==
LOC: H.ER 22:45
DX: K40.90 Unilateral inguinal hernia, without obstruction or gangrene, not specified as recurrent (principal); J45.909 Unspecified asthma, uncomplicated; F20.9 Schizophrenia, unspecified

== ENCOUNTER 2017-06-11 23:40 | Emergency (ER) | payer OTHER ==
[2017-06-11 23:41] VITALS: BMI 21.1
[2017-06-11 23:45] VITALS: BP 142/65; PULSE 74; RESP 22; TEMP 98.2; O2SAT 99
--- NOTE | 2017-06-11 23:52 | ED PDOC ---
HPI: General Adult Time Seen by Provider: 06/11/17 23:49 Chief Complaint (Nursing): Male Genitourinary Chief Complaint (Provider): testicular pain History Per: Patient Additional Complaint(s): 47-year-old male presents to emergency department for evaluation of chronic right groin pain and right testicular swelling. Patient has known right inguinal hernia. He states he needs something for pain. Patient denies any dysuria. No fever or chills, no nausea or vomiting. Patient has been seen in ED several times for the same complaint. Past Medical History Reviewed: Historical Data, Nursing Documentation, Vital Signs Vital Signs: Last Vital Signs Temp 98.2 F 06/11/17 23:42 Pulse 74 06/11/17 23:42 Resp 22 06/11/17 23:42 BP 142/65 06/11/17 23:42 Pulse Ox 99 06/12/17 00:12 - Medical History PMH: Asthma, Schizophrenia - Family History Family History: States: No Known Family Hx - Living Arrangements Living Arrangements: With Family - Social History Current smoker - smoking cessation education provided: Yes Drugs: Cocaine, Opiates - Home Medications Home Medications: Ambulatory Orders Medication Instructions Recorded Naproxen [Naprosyn] 500 mg PO BID PRN #30 tab 04/17/17 Ibuprofen [Motrin] 600 mg PO Q6 PRN #15 tab 06/12/17 - Allergies Allergies/Adverse Reactions: Allergies Allergy/AdvReac Type Severity Reaction Status Date / Time No Known Allergies Allergy Verified 09/26/16 13:28 Review of Systems ROS Statement: Except As Marked, All Systems Reviewed And Found Negative Constitutional: Negative for: Fever Gastrointestinal: Negative for: Nausea, Vomiting Genitourinary Male: Positive for: Scrotal Pain Physical Exam - Reviewed Nursing Documentation Reviewed: Yes Vital Signs Reviewed: Yes - Physical Exam Appears: Positive for: Well, Non-toxic, No Acute Distress Skin: Negative for: Rash Eye Exam: Positive for: Normal appearance Cardiovascular/Chest: Positive for: Regular Rate, Rhythm Respiratory: Positive for: Normal Breath Sounds Gastrointestinal/Abdominal: Positive for: Soft. Negative for: Tenderness, Distended, Guarding Male Genital Exam: Positive for: inguinal tenderness (right inguinal hernia noted with swelling into right scrotum) Neurologic/Psych: Positive for: Alert, Oriented, Gait (steady) - ECG O2 Sat by Pulse Oximetry: 99 Pulse Ox Interpretation: Normal Medical Decision Making Medical Decision Makin47 year old with chronic pain due to right inguinal hernia. Plan: IM toradol Rx naprosyn, referral given to surgery client development consultant and clinic. [facility] follow up information also provided. Disposition - Clinical Impression Clinical Impression: Inguinal hernia, Groin pain, chronic, right - Patient ED Disposition Is Patient to be Admitted: No Counseled Patient/Family Regarding: Diagnosis, Need For Followup, Rx Given - Disposition Referrals: David Kumar MD [Staff Provider] - [facility] [Outside] [facility] [Outside] Disposition: Routine/Home Disposition Time: 00:11 Condition: GOOD Additional Instructions: Take rx meds as directed as needed for pain. Follow up with surgeon or with clinic. Prescriptions: Ibuprofen [Motrin] 600 mg PO Q6 PRN #15 tab PRN Reason: Pain, Moderate (4-7) Instructions: Inguinal Hernia (ED), Groin Pain (ED) Forms: Punctil (Paraguayan)
== END 2017-06-12 00:41 | disposition home or self-care (01) ==
LOC: H.ER 23:40
DX: K40.90 Unilateral inguinal hernia, without obstruction or gangrene, not specified as recurrent (principal); R10.31 Right lower quadrant pain
CPT/HCPCS: 96372; 99283; J1885

== ENCOUNTER 2017-08-09 01:31 | Emergency (ER) | payer OTHER ==
[2017-08-09 01:31] VITALS: BMI 21.1
--- NOTE | 2017-08-09 02:57 | ED PDOC ---
HPI: Psych/Substance Abuse Chief Complaint (Provider): Medical Clearance ED Caveat: Intoxicated History Per: Patient History/Exam Limitations: clinical condition, intoxication Current Symptoms Are (Timing): Still Present Suicide/Self Injury Attempted (Context): None Additional Complaint(s): 47 year old male presents to ED for medical and psychiatric clearance and has a past history of PCP, cocaine, and opiate abuse. Patient is well known to provider and ED for multiple visits of a related nature. Patient is currently in [place] police custody. [place] police request a medical/psychiatric evaluation prior to patient's incarceration. Patient is noncooperative, verbally threatening to nursing staff, refusing vital signs, and refusing to answer provider's questions. PCP: None <Dmitry Morley - Last Filed: 08/09/17 05:04> <Alysa Parker - Last Filed: 08/09/17 07:40> Time Seen by Provider: 08/09/17 01:43 Chief Complaint (Nursing): Medical Clearance Past Medical History Reviewed: Historical Data, Nursing Documentation, Vital Signs - Medical History PMH: Asthma, Schizophrenia Denies: Diabetes, Hepatitis, HIV, HTN, Seizures, Sexually Transmitted Disease - Family History Family History: States: No Known Family Hx - Social History Drugs: Cocaine, Opiates - Immunization History Hx Tetanus Toxoid Vaccination: No (unrecall) <Dmitry Morley - Last Filed: 08/09/17 05:04> Vital Signs: Last Vital Signs Temp 98.1 F 08/09/17 05:52 Pulse 76 08/09/17 05:52 Resp 14 08/09/17 05:52 BP 113/65 08/09/17 05:52 Pulse Ox 99 08/09/17 05:52 <Alysa Parker - Last Filed: 08/09/17 07:40> - Home Medications Home Medications: Ambulatory Orders Medication Instructions Recorded Naproxen [Naprosyn] 500 mg PO BID PRN #30 tab 04/17/17 Ibuprofen [Motrin] 600 mg PO Q6 PRN #15 tab 06/12/17 - Allergies Allergies/Adverse Reactions: Allergies Allergy/AdvReac Type Severity Reaction Status Date / Time No Known Allergies Allergy Verified 09/26/16 13:28 Review of Systems Review Of Systems: ROS cannot be obtained secondary to pt's inabilty to answer questions. (Due to patient's uncooperative nature) <Dmitry Morley - Last Filed: 08/09/17 05:04> Physical Exam - Reviewed Nursing Documentation Reviewed: Yes Vital Signs Reviewed: Yes - Physical Exam Appears: Positive for: Non-toxic, No Acute Distress Skin: Positive for: Normal Color, Warm, Dry Eye Exam: Positive for: Normal appearance ENT: Positive for: Normal ENT Inspection Neck: Positive for: Normal, Painless ROM, Supple Cardiovascular/Chest: Positive for: Regular Rate, Rhythm. Negative for: Murmur Respiratory: Positive for: Normal Breath Sounds. Negative for: Respiratory Distress Gastrointestinal/Abdominal: Positive for: Soft. Negative for: Tenderness Back: Positive for: Normal Inspection Extremity: Positive for: Normal ROM. 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 0200 Glucose level: 122 0505 Patient is awake, alert, and oriented x3. Patient walks with a steady gait and is stable for discharge home. Dx: alcohol intoxication Scribe Attestation: Documented by Sheila Walter acting as a scribe for Dmitry Morley MD. Scribe Attestation: All medical record entries made by the Scribe were at my direction and personally dictated by me. I have reviewed the chart and agree that the record accurately reflects my personal performance of the history, physical exam, medical decision making, and the department course for this patient. I have also personally directed, reviewed, and agree with the discharge instructions and disposition. <Dmitry Morley - Last Filed: 08/09/17 05:04> Medical Decision Makin:00 Patient will be signed out to Dr. Parker pending work up and re-evaluation. Scribe Attestation: Documented by John Dixon, acting as a scribe for Alysa Parker MD Provider Scribe Attestation: All medical record entries made by the Scribe were at my direction and personally dictated by me. I have reviewed the chart and agree that the record accurately reflects my personal performance of the history, physical exam, medical decision making, and the department course for this patient. I have also personally directed, reviewed, and agree with the discharge instructions and disposition. <Alysa Parker - Last Filed: 08/09/17 07:40> Disposition - Disposition Disposition: Routine/Home Disposition Time: 05:05 <Dmitry Morley - Last Filed: 08/09/17 05:04> - Disposition Patient Signed Over To: Alysa Parker Handoff Comments: Pending sobriety <Alysa Parker - Last Filed: 08/09/17 07:40> - Clinical Impression Clinical Impression: PCP abuse, Polysubstance abuse - Disposition Condition: STABLE Forms: Ubitricity (Swedish)
[2017-08-09 03:04] LABS: BASO % 0.6 % (0.0-2.0); EOS # 0.3 K/uL (0.0-0.7); EOS % 5.3 % (0.0-4.0); HEMATOCRIT 34.4 % (35.0-51.0); LYMPH # 1.3 K/uL (1.0-4.3); LYMPH % 20.4 % (20.0-40.0); MEAN CELL VOLUME 90.4 fl (80.0-94.0); MEAN CORPUSCULAR HEMOGLOBIN 29.6 pg (27.0-31.0); MEAN CORPUSCULAR HGB CONC 32.7 g/dL (33.0-37.0); MEAN PLATELET VOLUME 7.5 fl (7.2-11.7); MONO # 0.5 K/uL (0.0-0.8); MONO % 8.2 % (0.0-10.0); NEUT # 4.2 K/uL (1.8-7.0); NEUT % 65.5 % (50.0-75.0); NRBC % 0.1 % (0.0-0.0); WHITE BLOOD COUNT 6.4 K/uL (4.8-10.8)
[2017-08-09 03:21] LABS: ALB/GLOB RATIO 1.3 (1.0-2.1); ALCOHOL SERUM < 10 mg/dl (0-10); ALKALINE PHOSPHATASE 76 U/L (38-126); ALT/SGPT 37 U/L (21-72); AST/SGOT 41 U/L (17-59); BILIRUBIN,TOTAL 0.3 mg/dl (0.2-1.3); BLOOD UREA NITROGEN 14 mg/dl (9-20); CALCIUM 8.8 mg/dL (8.4-10.2); CARBON DIOXIDE 28 mmol/L (22-30); CHLORIDE 104 mmol/L (98-107); GFR AFRICAN-AMERICAN > 60; GLUCOSE,RANDOM 118 mg/dL (75-110); POTASSIUM 3.7 MMOL/L (3.6-5.0); SODIUM 142 mmol/l (132-148); TOTAL PROTEIN 6.5 G/DL (6.3-8.2)
[2017-08-09 05:53] VITALS: TEMP 98.1
[2017-08-09 11:35] VITALS: BP 123/76; PULSE 68; RESP 16; O2SAT 97
== END 2017-08-09 11:37 ==
LOC: H.ER 01:31
DX: F16.10 Hallucinogen abuse, uncomplicated (principal); F10.129 Alcohol abuse with intoxication, unspecified; F11.10 Opioid abuse, uncomplicated; F20.9 Schizophrenia, unspecified; J45.909 Unspecified asthma, uncomplicated
CPT/HCPCS: 80053; 80320; 80324; 80345; 80346; 80349; 80353; 80358; 80361; 83992; 85025; 96372; 99283; J1630; J2060

== ENCOUNTER 2017-08-13 16:54 | Emergency (ER) | payer OTHER ==
[2017-08-13 16:54] VITALS: BMI 21.1
[2017-08-13 17:08] VITALS: BP 134/52; PULSE 75; RESP 16; TEMP 98; O2SAT 98
--- NOTE | 2017-08-13 18:14 | ED PDOC ---
HPI: General Adult Time Seen by Provider: 08/13/17 17:27 Chief Complaint (Nursing): Medical Clearance Chief Complaint (Provider): Medical clearance for incarceration History Per: Patient History/Exam Limitations: no limitations Have you had recent travel within the past 21 days to any of the following countries: [place], [place], [place] or [place]?: No Current Symptoms Are (Timing): Still Present Additional Complaint(s): Dick Griffin, a 47 year old male, with a past medical history of diabetes is brought in to the ED by [place] [employer] under arrest for robbery. Patient admits to heroin and cocaine use. He states that his last dosage of diabetes medication was yesterday and his accucheck was 101. Past Medical History Reviewed: Historical Data, Nursing Documentation, Vital Signs Vital Signs: Last Vital Signs Temp 98.0 F 08/13/17 17:07 Pulse 75 08/13/17 17:07 Resp 16 08/13/17 17:07 BP 134/52 L 08/13/17 17:07 Pulse Ox 98 08/13/17 18:25 - Medical History PMH: Asthma, Diabetes, Schizophrenia Denies: Hepatitis, HIV, HTN, Seizures, Sexually Transmitted Disease - Family History Family History: States: Unknown Family Hx - Social History Current smoker - smoking cessation education provided: Yes (Heavy Smoker > 10 Cigarettes Daily) Ex-Smoker (has not smoked in the last 12 months): No Alcohol: None Drugs: Cocaine, Opiates (heroin) - Immunization History Hx Tetanus Toxoid Vaccination: No (unrecall) - Home Medications Home Medications: Ambulatory Orders Medication Instructions Recorded Naproxen [Naprosyn] 500 mg PO BID PRN #30 tab 04/17/17 Ibuprofen [Motrin] 600 mg PO Q6 PRN #15 tab 06/12/17 - Allergies Allergies/Adverse Reactions: Allergies Allergy/AdvReac Type Severity Reaction Status Date / Time No Known Allergies Allergy Verified 09/26/16 13:28 Review of Systems ROS Statement: Except As Marked, All Systems Reviewed And Found Negative Constitutional: Negative for: Fever, Chills Physical Exam - Reviewed Nursing Documentation Reviewed: Yes Vital Signs Reviewed: Yes - Physical Exam Appears: Positive for: Non-toxic, No Acute Distress Head Exam: Positive for: ATRAUMATIC, NORMAL INSPECTION, NORMOCEPHALIC Skin: Positive for: Normal Color, Warm, Dry. Negative for: Rash Eye Exam: Positive for: Normal appearance, EOMI, PERRL. Negative for: Nystagmus ENT: Positive for: Normal ENT Inspection. Negative for: Nasal Congestion, Tonsillar Exudate Neck: Positive for: Normal, Painless ROM, Supple Cardiovascular/Chest: Positive for: Regular Rate, Rhythm, Chest Non Tender. Negative for: Tachycardia Respiratory: Positive for: Normal Breath Sounds. Negative for: Rales, Rhonchi, Wheezing, Respiratory Distress Gastrointestinal/Abdominal: Positive for: Normal Exam, Bowel Sounds, Soft. Negative for: Tenderness, Mass, Guarding, Rebound Back: Positive for: Normal Inspection. Negative for: L CVA Tenderness, R CVA Tenderness Extremity: Positive for: Normal ROM. Negative for: Tenderness, Deformity, Swelling Neurologic/Psych: Positive for: Alert (AAO x3), Oriented, Gait. Negative for: Motor/Sensory Deficits - ECG O2 Sat by Pulse Oximetry: 98 (RA) Pulse Ox Interpretation: Normal Medical Decision Making Medical Decision Makin Initial Impression 47 y/o male presenting for medical clearance for incarceration Initial Plan: * Reevaluation Scribe Attestation Documented by Beverley Felix acting as a scribe for Leopoldo Parsons MD. Provider Attestation All medical record entries made by the Scribe were at my direction and personally dictated by me. I have reviewed the chart and agree that the record accurately reflects my personal performance of the history, physical exam, medical decision making, and the department course for this patient. I have also personally directed, reviewed, and agree with the discharge instructions and disposition. Disposition - Clinical Impression Clinical Impression: Substance abuse - Patient ED Disposition Is Patient to be Admitted: No Counseled Patient/Family Regarding: Studies Performed, Diagnosis - Disposition Referrals: [facility] [Outside] Disposition: Routine/Home Disposition Time: 18:02 Condition: FAIR Additional Instructions: Medically and psychiatrically stable for incarceration Instructions: Narcotic Abuse (ED) Forms: 2Catalyze (Chinese)
== END 2017-08-13 18:10 ==
LOC: H.ER 16:54
DX: Z02.89 Encounter for other administrative examinations (principal); F19.10 Other psychoactive substance abuse, uncomplicated; E11.9 Type 2 diabetes mellitus without complications; F17.210 Nicotine dependence, cigarettes, uncomplicated; F20.9 Schizophrenia, unspecified; J45.909 Unspecified asthma, uncomplicated

== ENCOUNTER 2018-02-19 01:32 | Inpatient (IN) | payer MEDICAID, OTHER ==
[2018-02-19 01:32] VITALS: BMI 21.1
[2018-02-19] MEDS ORDERED: Albuterol-Ipratrop 3 mg / 0.5 (3 ml) UD INH STA ×2 (01:55→05:05)
[2018-02-19] MEDS ORDERED: Magnesium Sulfate 2 gm/50 ml 2 GM/50 ML BAG ONE ×2 (02:03→05:07)
[2018-02-19] MEDS ORDERED: Albuterol-Ipratrop 3 mg / 0.5 (3 ml) UD ONE ×4 (02:03→09:05)
[2018-02-19] MEDS: Magnesium Sulfate 2 gm/50 ml 2 GM/50 ML BAG IV STA ×2 (02:05→05:10)
[2018-02-19 02:30] LABS: BASO % 0.4 % (0.0-2.0); EOS # 0.6 K/uL (0.0-0.7); EOS % 6.1 % (0.0-4.0); HEMOGLOBIN 14.1 g/dL (12.0-18.0); LYMPH # 1.1 K/uL (1.0-4.3); LYMPH % 11.2 % (20.0-40.0); MEAN CELL VOLUME 93.2 fl (80.0-94.0); MEAN CORPUSCULAR HGB CONC 33.3 g/dL (33.0-37.0); MEAN PLATELET VOLUME 9.5 fl (7.2-11.7); MONO # 0.9 K/uL (0.0-0.8); MONO % 8.9 % (0.0-10.0); NEUT # 7.1 K/uL (1.8-7.0); NEUT % 73.4 % (50.0-75.0); NRBC % 0.1 % (0.0-0.0); RBC 4.54 Mil/uL (4.40-5.90); RED CELL DISTRIBUTION WIDTH 13.5 % (11.5-14.5); WHITE BLOOD COUNT 9.7 K/uL (4.8-10.8)
--- NOTE | 2018-02-19 02:34 | ED PDOC ---
HPI: SOB/CHF/COPD Chief Complaint (Provider): Shortness Of Breath History Per: Patient History/Exam Limitations: no limitations Onset/Duration Of Symptoms: Other (prior to arrival) Current Symptoms Are (Timing): Still Present <Dmitry Morley - Last Filed: 02/19/18 06:12> <Leopoldo Parsons - Last Filed: 02/19/18 10:26> Time Seen by Provider: 02/19/18 01:41 Chief Complaint (Nursing): Shortness Of Breath Additional Complaint(s): 47 y/o male with a pmhx of asthma, who is well known to provider and ED for multiple visits for substance abuse presenting for evaluation of shortness of breath onset prior to arrival. Patient reports using his inhaler without relief. (Dmitry Morley) Past Medical History Reviewed: Historical Data, Nursing Documentation, Vital Signs - Medical History PMH: Asthma, Diabetes, Schizophrenia Denies: Hepatitis, HIV, HTN, Seizures, Sexually Transmitted Disease - Surgical History Surgical History: Hernia Repair (inguinal) - Family History Family History: States: Unknown Family Hx - Social History Ex-Smoker (has not smoked in the last 12 months): No Alcohol: None Drugs: Cocaine, Opiates (fentanyl, heroin), Other (PCP) - Immunization History Hx Tetanus Toxoid Vaccination: No (unrecall) <Dmitry Morley - Last Filed: 02/19/18 06:12> <Leopoldo Parsons - Last Filed: 02/19/18 10:26> Vital Signs: Last Vital Signs Temp 98.3 F 02/19/18 07:34 Pulse 77 02/19/18 10:19 Resp 28 H 02/19/18 10:19 BP 125/81 02/19/18 10:19 Pulse Ox 100 02/19/18 10:19 - Home Medications Home Medications: Ambulatory Orders Medication Instructions Recorded Albuterol HFA [Ventolin HFA 90 1 puff PO Q6 PRN 02/19/18 mcg/actuation (8 g)] - Allergies Allergies/Adverse Reactions: Allergies Allergy/AdvReac Type Severity Reaction Status Date / Time No Known Allergies Allergy Verified 09/26/16 13:28 Review of Systems ROS Statement: Except As Marked, All Systems Reviewed And Found Negative Respiratory: Positive for: Shortness of Breath <Dmitry Morley Galdamez - Last Filed: 02/19/18 06:12> Physical Exam - Reviewed Nursing Documentation Reviewed: Yes Vital Signs Reviewed: Yes - Physical Exam Appears: Positive for: Non-toxic, In Acute Distress (mild respiratory distress) Head Exam: Positive for: ATRAUMATIC, NORMAL INSPECTION, NORMOCEPHALIC Skin: Positive for: Normal Color, Warm, Dry. Negative for: Rash Eye Exam: Positive for: EOMI, Normal appearance, PERRL Neck: Positive for: Normal, Painless ROM, Supple Cardiovascular/Chest: Positive for: Regular Rate, Rhythm. Negative for: Murmur Respiratory: Positive for: Wheezing (bilateral expiratory wheezing), Respiratory Distress, Other (decreased air entry) Gastrointestinal/Abdominal: Positive for: Normal Exam, Soft. Negative for: Tenderness Back: Positive for: Normal Inspection. Negative for: L CVA Tenderness, R CVA Tenderness, Vertebral Tenderness Extremity: Positive for: Normal ROM. Negative for: Pedal Edema, Deformity Neurologic/Psych: Positive for: Alert, Oriented. Negative for: Motor/Sensory Deficits <Dmitry Morley - Last Filed: 02/19/18 06:12> - Laboratory Results Result Diagrams: 02/19/18 02:10 02/19/18 02:10 - ECG O2 Sat by Pulse Oximetry: 96 (RA) Pulse Ox Interpretation: Normal - Critical Care Total Time (In Min): 90 <Dmitry Morley - Last Filed: 02/19/18 06:12> - Laboratory Results Result Diagrams: 02/19/18 02:10 02/19/18 02:10 - Critical Care Total Time (In Min): 60 <Leopoldo Parsons - Last Filed: 02/19/18 10:26> Medical Decision Making <Dmitry Morley - Last Filed: 02/19/18 06:12> <Leopoldo Parsons - Last Filed: 02/19/18 10:26> Medical Decision Making: Initial Impression: 47 y/o male with acute asthma exacerbation Initial Plan: --EKG --Alcohol serum --CMP --Urine drug screen --CBC --CXR --Duoneb 9ml INH --Solu-Medrol 125mg IVP --Magnesium Sulfate 2gm in 50ml IV --Blood culture --Peak flow treatment --Reevaluation 05:05 --Duoneb 9ml INH --Magnesium Sulfate 2gm in 50ml IV --Peak flow treatment Patient will be admitted for observation under Dr. Pratt due to respiratory distress and asthma exacerbation. Scribe Attestation: Documented by George Mart, acting as a scribe for Dmitry Morley MD. Provider Scribe Attestation: All medical record entries made by the Scribe were at my direction and personally dictated by me. I have reviewed the chart and agree that the record accurately reflects my personal performance of the history, physical exam, medical decision making, and the department course for this patient. I have also personally directed, reviewed, and agree with the discharge instructions and disposition. (Dmitry Morley) Disposition - Patient ED Disposition Is Patient to be Admitted: Yes - Disposition Disposition Time: 05:11 - Pt Status Changed To: Hospital Disposition Of: Observation <Dmitry Morley - Last Filed: 02/19/18 06:12> <Leopoldo Parsons - Last Filed: 02/19/18 10:26> - Clinical Impression Clinical Impression: Asthma exacerbation - Disposition Condition: STABLE Addendum <Dmitry Morley - Last Filed: 02/19/18 06:12> <Leopoldo Parsons - Last Filed: 02/19/18 10:26> Addendum: Called to evaluate patient in respiratory distress. Inspiratory and expiratory wheezing with moderate respiratory distress. Given Nebulizer x2. Patient placed on bipap with improvement of symptoms. Will obtain ABG. (Leopoldo Parsons) Progress Note <Dmitry Morley - Last Filed: 02/19/18 06:12> <Leopoldo Parsons - Last Filed: 02/19/18 10:26> - Review of Symptoms Events since last encounter: Re-evaluated for reoccurrence of SOB and wheezing. Had received 0..4 of Narcan and became more awake and alert. Patient complained of increased SOB. Lungs expiratory wheezing moderate respiratory distress. Excessive muscle use with no improvement with bipap NAD nebulizer. Intubated 7.5 Beninese ET tube. Pre-treated with Etomidate 20 mg and insacholamine 2 mg. ET tube placement verified color with CO2 capnometer with equal breath sounds bilaterally. Chest X-ray ordered. Will upgrade patient to ICU and will place patient on Propofol drip. (Leopoldo Parsons)
[2018-02-19 02:40] LABS: ALB/GLOB RATIO 1.3 (1.0-2.1); ALBUMIN 4.4 g/dL (3.5-5.0); ALT/SGPT 41 U/L (21-72); AST/SGOT 96 U/L (17-59); BLOOD UREA NITROGEN 10 mg/dl (9-20); CALCIUM 9.3 mg/dL (8.4-10.2); GFR AFRICAN-AMERICAN > 60; GFR NON-AFRICAN AMERICAN > 60
[2018-02-19] MEDS ORDERED: Magnesium Sulfate 2 gm/50 ml 2 GM/50 ML BAG IV STA (05:05)
--- NOTE | 2018-02-19 06:22 | CP.PCM.HP ---
History of Present Illness - History of Present Illness History of Present Illness: PMD: none Chief Complaint: SOB The Patient was seen and examined in the ED HPI: The Hx is obtained from the medical records as the patient is very somnolent. He is a 47 years old male with hx of Asthma, substance abuse and Schizophrenia who comes with one day of worsening SOB, associated with generalized chest pain. He came into the ED talking but became more somnolent, but arousable. He received 3 sets of Broncho dilator but without much relief. He is being admitted for further management. PMH: Asthma; Schizophrenia; DM II ??; Maxillary and Orbital wall Fractures PSH: Right Inguinal Hernia repair SH: Heroin Abuse; Cocaine, heroin and Fentanil, PCP; Heavy smoking; Heavy Alcohol Use FH: States: Unknown Family Hx Allergies: NKDA Medication: reviewed Present on Admission - Present on Admission Any Indicators Present on Admission: No History of DVT/PE: No History of Uncontrolled Diabetes: No Urinary Catheter: No Decubitus Ulcer Present: No Review of Systems - Review of Systems Systems not reviewed;Unavailable: Intoxicated Review of Systems: Review of systems limited because the patient is obtunded Past Patient History - Infectious Disease Hx of Infectious Diseases: None - Past Medical History & Family History Past Medical History?: Yes - Past Social History Smoking Status: Heavy Smoker > 10 Cigarettes Daily Chewing Tobacco Use: No Cigar Use: No Alcohol: Social Drugs: Cocaine, Opiates (fentanyl, heroin), Methamphetamine, Other (PCP) - CARDIAC Hx Hypertension: No - PULMONARY Hx Asthma: Yes - NEUROLOGICAL Hx Neurological Disorder: No Hx Seizures: No - RENAL Hx Chronic Kidney Disease: No - ENDOCRINE/METABOLIC Hx Diabetes Mellitus Type 2: Yes (??) - HEMATOLOGICAL/ONCOLOGICAL Hx Blood Disorders: No Hx Human Immunodeficiency Virus (HIV): No - INTEGUMENTARY Hx Dermatological Problems: No - MUSCULOSKELETAL/RHEUMATOLOGICAL Hx Musculoskeletal Disorders: No Hx Falls: No - GASTROINTESTINAL Hx Gastrointestinal Disorders: Yes Other/Comment: Hx right inguinal hernia - GENITOURINARY/GYNECOLOGICAL Hx Genitourinary Disorders: No Hx Sexually Transmitted Disorders: No - PSYCHIATRIC Hx Schizophrenia: Yes - SURGICAL HISTORY Hx Surgeries: No - ANESTHESIA Hx Anesthesia: No Hx Anesthesia Reactions: No Hx Malignant Hyperthermia: No Meds Allergies/Adverse Reactions: Allergies Allergy/AdvReac Type Severity Reaction Status Date / Time No Known Allergies Allergy Verified 12/31/16 13:28 Physical Exam - Constitutional Appears: In Acute Distress - Head Exam Head Exam: ATRAUMATIC, NORMAL INSPECTION, NORMOCEPHALIC - Eye Exam Eye Exam: Normal appearance Pupil Exam: NORMAL ACCOMODATION - ENT Exam ENT Exam: Mucous Membranes Moist, Normal External Ear Exam - Neck Exam Neck exam: Positive for: Full Rom, Normal Inspection. Negative for: Lymphadenopathy, Tenderness - Respiratory Exam Respiratory Exam: Wheezes. absent: Rales, Rhonchi Additional comments: Wheezing inm whole of both lung johnson - Cardiovascular Exam Cardiovascular Exam: REGULAR RHYTHM, RRR, +S1, +S2. absent: Gallop, Rubs - GI/Abdominal Exam GI & Abdominal Exam: Normal Bowel Sounds, Soft. absent: Mass, Organomegaly - Rectal Exam Rectal Exam: Deferred - Extremities Exam Extremities exam: Positive for: normal inspection. Negative for: calf tenderness, full ROM, joint swelling - Back Exam Back exam: NORMAL INSPECTION. absent: CVA tenderness (L), CVA tenderness (R) - Skin Skin Exam: Dry, Intact, Normal Color, Warm Results - Vital Signs Recent Vital Signs: Last Vital Signs Temp 98.6 F 02/19/18 06:05 Pulse 88 02/19/18 06:05 Resp 20 02/19/18 06:05 BP 147/58 L 02/19/18 06:05 Pulse Ox 96 02/19/18 06:14 - Labs Result Diagrams: 02/19/18 02:10 02/19/18 02:10 Labs: Laboratory Results - last 24 hr 02/19/18 02/19/18 02:10 02:10 WBC 9.7 D RBC 4.54 Hgb 14.1 D Hct 42.3 MCV 93.2 D MCH 31.0 MCHC 33.3 RDW 13.5 Plt Count 211 MPV 9.5 Neut % (Auto) 73.4 Lymph % (Auto) 11.2 L [place] % (Auto) 8.9 Eos % (Auto) 6.1 H Baso % (Auto) 0.4 Neut # (Auto) 7.1 H Lymph # (Auto) 1.1 [place] # (Auto) 0.9 H Eos # (Auto) 0.6 Baso # (Auto) 0.0 Sodium 141 Potassium 5.2 H Chloride 101 Carbon Dioxide 24 Anion Gap 21 H BUN 10 Creatinine 0.9 Est GFR ( Amer) > 60 Est GFR (Non-Af Amer) > 60 Random Glucose 134 H Calcium 9.3 Total Bilirubin 0.9 AST 96 H D ALT 41 Alkaline Phosphatase 67 Total Protein 7.9 Albumin 4.4 Globulin 3.5 Albumin/Globulin Ratio 1.3 Alcohol, Quantitative < 10 - EKG Data EKG comments: NSR 77/min - Imaging and Cardiology Chest x-ray Status: Image reviewed by me Additional comment: No infiltrate Assessment & Plan - Assessment and Plan (Free Text) Assessment: #. Asthmatic Crisis #. Hyperkalemia #. Hyperglycemia Plan: 47 years old male with hx of Asthma, substance abuse and Schizophrenia who comes with one day of worsening SOB, associated with generalized chest pain. He came into the ED talking but became more somnolent, but arousable. He received 3 sets of Broncho dilator but without much relief. He is being admitted for further management. #. Asthmatic Crisis - Solu-medrol 40mg Q6h - Duoneb Q4H - Albuterol Q2h PRN - Mucinex 600mg Q12 - IV fluid #. Hyperkalemia - Kayexalate - follow electrolyte #. Hyperglycemia - Hba1c #. Hx of Drug Abuse with h #. DVT prophylaxis with Lovenox #. Code Status: Full - Date & Time Date: 02/19/18 Time: 06:22
[2018-02-19] MEDS ORDERED: Sod Polystyrene Sulf 15 gm/60 ml Susp PO ONE ×3 (06:33→18:03)
[2018-02-19] MEDS ORDERED: Sod Polystyrene Sulf 15 gm/60 ml Susp ONE (07:25)
[2018-02-19] MEDS: Albuterol 0.083% Inhal Sol (2.5 mg/3 mL) UD INH PRN ×2 (07:49→07:50)
[2018-02-19] MEDS ORDERED: Albuterol 0.083% Inhal Sol (2.5 mg/3 mL) UD ONE (07:50)
[2018-02-19] MEDS ORDERED: Etomidate 20 mg/10ml Inj IV ONE ×2 (07:55→08:13)
[2018-02-19] MEDS ORDERED: Succinylcholine 200 mg/10 ml Inj IV ONE ×2 (07:55→08:13)
[2018-02-19] MEDS: Albuterol-Ipratrop 3 mg / 0.5 (3 ml) UD INH SCH ×4 (08:08→22:59)
[2018-02-19] MEDS: Sodium Chloride 0.9% 1,000 ML IV SCH ×2 (08:09→16:12)
[2018-02-19] MEDS ORDERED: Albuterol-Ipratrop 3 mg / 0.5 (3 ml) UD IH STA ×2 (08:12)
[2018-02-19 08:30] LABS: ABG ALLEN TEST YES; ARTERIAL BLOOD GAS HCO3 25.1 mmol/L (21-28); ARTERIAL BLOOD GAS O2 SAT 100.5 % (95-98); ARTERIAL BLOOD GAS PCO2 42 mm/Hg (35-45); ARTERIAL BLOOD GAS PH 7.39 (7.35-7.45); ARTERIAL BLOOD GAS PO2 249 mm/Hg (80-100); ARTERIAL BLOOD GAS TCO2 26.7 mmol/L (22-28)
--- NOTE | 2018-02-19 08:34 | RAD ---
HISTORY: Chest pain COMPARISON: 01/07/2017. FINDINGS: LUNGS: The lungs are well inflated and clear. PLEURA: No significant pleural effusion identified, no pneumothorax apparent. CARDIOVASCULAR: Normal. OSSEOUS STRUCTURES: No significant abnormalities. VISUALIZED UPPER ABDOMEN: Normal. OTHER FINDINGS: None. IMPRESSION: No active pulmonary disease.
[2018-02-19] MEDS ORDERED: Naloxone 0.4 mg/ml Inj (Adult) ONE (08:52)
[2018-02-19] MEDS ORDERED: Naloxone 0.4 mg/ml Inj (Adult) IVP STA (08:53)
[2018-02-19] MEDS ORDERED: guaiFENesin 600 mg ER Tab PO SCH (09:00)
[2018-02-19] MEDS ORDERED: Propofol 10 mg/ml 1,000 MG/100 ML VIAL ONE (09:18)
[2018-02-19] MEDS: Propofol 10 mg/ml 1,000 MG/100 ML VIAL IV SCH ×3 (09:21→20:36)
[2018-02-19] MEDS ORDERED: Propofol 10 mg/ml Inj (20 ML) IV ONE ×3 (09:27→10:47)
--- NOTE | 2018-02-19 09:43 | CP.CCUPN ---
CCU Subjective - Physician Review Events Since Last Encounter (Free Text): 47 years old male with hx of Asthma, substance abuse and Schizophrenia was admitted with asthma exacerbation. Patient developed worsening respiratory distress and lethargy in ER and was intubated in ER, no fever, no vomiting, events reviewed CCU Objective - Vital Signs / Intake & Output Vital Signs (Last 4 hours): Vital Signs Temp Pulse Resp BP Pulse Ox 02/19/18 09:30 76 02/19/18 09:09 48 L 26 H 98 02/19/18 08:55 65 26 H 124/65 95 02/19/18 08:20 53 L 22 137/80 100 02/19/18 08:15 90 02/19/18 08:12 86 23 130/77 99 02/19/18 07:34 98.3 F 53 L 21 158/74 H 94 L 02/19/18 07:31 72 21 166/77 H 95 02/19/18 06:53 97.5 F L 94 H 20 149/80 02/19/18 06:51 97.5 F L 94 H 20 149/80 94 L 02/19/18 06:14 96 02/19/18 06:05 98.6 F 88 20 147/58 L 90 L Intake and Output (Last 8hrs): Intake & Output 02/18/18 02/19/18 02/19/18 22:59 06:59 14:59 Weight 207 lb - Physical Exam Head: Positive for: Atraumatic, Normocephalic Pupils: Positive for: PERRL Conjunctiva: Positive for: Normal Mouth: Positive for: Moist Mucous Membranes Nose (Internal): Positive for: Normal Inspection Neck: Positive for: Normal Range of Motion Respiratory/Chest: Positive for: Wheezes Cardiovascular: Positive for: Regular Rate and Rhythm Abdomen: Positive for: Normal Bowel Sounds Upper Extremity: Positive for: Normal Inspection Lower Extremity: Positive for: Normal Inspection Neurological: Positive for: Other (on ventilator, sedated) Psychiatric: Positive for: Other (on ventilator, sedated) - Medications Active Medications: Active Medications Generic Name Dose Route Start Last Admin Trade Name Freq PRN Reason Stop Dose Admin Albuterol Sulfate 2.5 mg 02/19/18 06:29 02/19/18 07:50 Albuterol 0.083% Inhal Keri (2.5 Mg/3 Ml) Ud INH 2.5 mg RQ2 PRN Administration Shortness of Breath Albuterol/Ipratropium 3 ml 02/19/18 08:00 02/19/18 08:08 Duoneb 3 Mg/0.5 Mg (3 Ml) Ud INH 3 ml RQ4 RODRIGO Administration Enoxaparin Sodium 40 mg 02/19/18 09:00 Lovenox SC DAILY RODRIGO Protocol Guaifenesin 600 mg 02/19/18 09:00 Mucinex La PO Q12 RODRIGO Sodium Chloride 1,000 mls @ 100 mls/hr 02/19/18 06:45 02/19/18 08:09 Sodium Chloride 0.9% IV 02/20/18 06:32 100 mls/hr .Q10H RODRIGO Administration Propofol 1,000 mg in 100 mls @ 2.817 mls/hr 02/19/18 09:30 Diprivan IV 02/20/18 09:28 .Q24H RODRIGO Protocol 5 MCG/KG/MIN Lorazepam 1 mg 02/19/18 06:34 Ativan IM Q6 PRN Agitation Methylprednisolone 40 mg 02/19/18 10:00 Solu-Medrol IVP Q6 RODRIGO - Patient Studies Lab Studies: Lab Studies 02/19/18 02/19/18 02/19/18 Range/Units 08:11 02:10 02:10 WBC 9.7 D (4.8-10.8) K/uL RBC 4.54 (4.40-5.90) Mil/uL Hgb 14.1 D (12.0-18.0) g/dL Hct 42.3 (35.0-51.0) % MCV 93.2 D (80.0-94.0) fl MCH 31.0 (27.0-31.0) pg MCHC 33.3 (33.0-37.0) g/dL RDW 13.5 (11.5-14.5) % Plt Count 211 (130-400) K/uL MPV 9.5 (7.2-11.7) fl Neut % (Auto) 73.4 (50.0-75.0) % Lymph % (Auto) 11.2 L (20.0-40.0) % [place] % (Auto) 8.9 (0.0-10.0) % Eos % (Auto) 6.1 H (0.0-4.0) % Baso % (Auto) 0.4 (0.0-2.0) % Neut # (Auto) 7.1 H (1.8-7.0) K/uL Lymph # (Auto) 1.1 (1.0-4.3) K/uL [place] # (Auto) 0.9 H (0.0-0.8) K/uL Eos # (Auto) 0.6 (0.0-0.7) K/uL Baso # (Auto) 0.0 (0.0-0.2) K/uL pCO2 42 (35-45) mm/Hg pO2 249 H (80-100) mm/Hg HCO3 25.1 (21-28) mmol/L ABG pH 7.39 (7.35-7.45) ABG Total CO2 26.7 (22-28) mmol/L ABG O2 Saturation 100.5 H (95-98) % ABG Base Excess 0.2 (-2.0-3.0) mmol/L Jam Test Yes ABG Potassium 4.0 (3.6-5.2) mmol/L A-a O2 Difference 412.0 mm/Hg Glucose 171 H (75-110) mg/dL Lactate 1.4 (0.7-2.1) mmol/L Vent Mode Bipap Mechanical Rate 16 FiO2 100.0 % Inspiratory BiPAP 10 Expiratory BiPAP 5 Sodium 131.0 L 141 (132-148) mmol/l Potassium 5.2 H (3.6-5.0) MMOL/L Chloride 104.0 101 (98-107) mmol/L Carbon Dioxide 24 (22-30) mmol/L Anion Gap 21 H (10-20) BUN 10 (9-20) mg/dl Creatinine 0.9 (0.8-1.5) mg/dl Est GFR ( Amer) > 60 Est GFR (Non-Af Amer) > 60 Random Glucose 134 H (75-110) mg/dL Calcium 9.3 (8.4-10.2) mg/dL Total Bilirubin 0.9 (0.2-1.3) mg/dl AST 96 H D (17-59) U/L ALT 41 (21-72) U/L Alkaline Phosphatase 67 (38-126) U/L Total Protein 7.9 (6.3-8.2) G/DL Albumin 4.4 (3.5-5.0) g/dL Globulin 3.5 (2.2-3.9) gm/dL Albumin/Globulin Ratio 1.3 (1.0-2.1) Arterial Blood Potassium 4.0 (3.6-5.2) mmol/L Alcohol, Quantitative < 10 (0-10) mg/dl Laboratory Results - last 24 hr 02/19/18 02/19/18 02/19/18 02:10 02:10 08:11 WBC 9.7 D RBC 4.54 Hgb 14.1 D Hct 42.3 MCV 93.2 D MCH 31.0 MCHC 33.3 RDW 13.5 Plt Count 211 MPV 9.5 Neut % (Auto) 73.4 Lymph % (Auto) 11.2 L [place] % (Auto) 8.9 Eos % (Auto) 6.1 H Baso % (Auto) 0.4 Neut # (Auto) 7.1 H Lymph # (Auto) 1.1 [place] # (Auto) 0.9 H Eos # (Auto) 0.6 Baso # (Auto) 0.0 pCO2 42 pO2 249 H HCO3 25.1 ABG pH 7.39 ABG Total CO2 26.7 ABG O2 Saturation 100.5 H ABG Base Excess 0.2 Jam Test Yes ABG Potassium 4.0 A-a O2 Difference 412.0 Glucose 171 H Lactate 1.4 Vent Mode Bipap Mechanical Rate 16 FiO2 100.0 Inspiratory BiPAP 10 Expiratory BiPAP 5 Sodium 141 131.0 L Potassium 5.2 H Chloride 101 104.0 Carbon Dioxide 24 Anion Gap 21 H BUN 10 Creatinine 0.9 Est GFR ( Amer) > 60 Est GFR (Non-Af Amer) > 60 Random Glucose 134 H Calcium 9.3 Total Bilirubin 0.9 AST 96 H D ALT 41 Alkaline Phosphatase 67 Total Protein 7.9 Albumin 4.4 Globulin 3.5 Albumin/Globulin Ratio 1.3 Arterial Blood Potassium 4.0 Alcohol, Quantitative < 10 EKG/Cardiology Studies: Cardiology / EKG Studies 02/19/18 01:56 ELECTROCARDIOGRAM Stat Comment: Mode Of Transportation: PORTABLE Reason For Exam: CP Critical Care Progress Note - Nutrition Nutrition: Nutrition Category Date Time Status Consistent Carbohydrate [DIET] Diets 02/19/18 Breakfast Active Assessment/Plan - Assessment and Plan (Free Text) Assessment: A/P Respiratory failure, asthma exacerbation, drug abuse, schizophrenia, hyperkalemia, hyperglycemia - Ventilatory support - Pulmonary toilets - Steroid, bronchodilators - CT head - DVT prophylaxis Critical care 35 min
[2018-02-19 09:55] LABS: BARBITURATES, UR NEGATIVE (NEGATIVE)
[2018-02-19] MEDS ORDERED: methylPREDNISolone 40 MG in Sodium Chloride 0.9% 50 ML IVPB SCH (10:00)
[2018-02-19 10:21] LABS: BENZODIAZEPINES, UR POSITIVE (NEGATIVE); OPIATES, UR POSITIVE (NEGATIVE); PHENCYCLIDINE, UR POSITIVE (NEGATIVE)
--- NOTE | 2018-02-19 10:37 | RAD ---
HISTORY: Cough COMPARISON: 02/19/2018. FINDINGS: The endotracheal tube terminates 5.5 cm proximal to the phil. LUNGS: The lungs are hyperinflated and there is peribronchial thickening with chronic changes in both lungs. No focal consolidation. PLEURA: No significant pleural effusion identified, no pneumothorax apparent. CARDIOVASCULAR: Normal. OSSEOUS STRUCTURES: No significant abnormalities. VISUALIZED UPPER ABDOMEN: Normal. OTHER FINDINGS: None. IMPRESSION: Endotracheal tube terminates 5.5 cm proximal to the phil. No active pulmonary disease. COPD.
--- NOTE | 2018-02-19 10:50 | CARD ---
APPROVED REPORT EKG Measurement Heart [id number] <Conclusion> Normal sinus rhythm Normal ECG
[2018-02-19] MEDS ORDERED: Propofol 10 mg/ml 2,000 MG/200 ML VIAL ONE (11:00)
[2018-02-19] MEDS: MethylPREDNISolone 40 mg Vial IVP SCH ×3 (11:06→21:54)
[2018-02-19] MEDS: Enoxaparin 40 mg Syringe SC SCH (11:06)
[2018-02-19] MEDS ORDERED: Midazolam 2 MG/2 ML VIAL IV ONE (11:20)
[2018-02-19 12:13] LABS: ABG ALLEN TEST YES; ARTERIAL BLOOD GAS HCO3 24.2 mmol/L (21-28); ARTERIAL BLOOD GAS O2 SAT 100.6 % (95-98); ARTERIAL BLOOD GAS PCO2 63 mm/Hg (35-45); ARTERIAL BLOOD GAS PH 7.25 (7.35-7.45); ARTERIAL BLOOD GAS PO2 476 mm/Hg (80-100); ARTERIAL BLOOD GAS TCO2 29.5 mmol/L (22-28)
[2018-02-19 17:00] LABS: ABG ALLEN TEST YES; ARTERIAL BLOOD GAS HEMOGLOBIN 13.8 g/dL (11.7-17.4); ARTERIAL BLOOD GAS O2 CAPACITY 20.2 mL/dL (16-24); ARTERIAL BLOOD GAS O2 CONTENT 20.4 ML/dL (15-23); ARTERIAL BLOOD GAS O2 SAT 100.8 % (95-98); ARTERIAL BLOOD GAS PCO2 73 mm/Hg (35-45); ARTERIAL BLOOD GAS PH 7.22 (7.35-7.45); ARTERIAL BLOOD GAS PO2 547 mm/Hg (80-100); ARTERIAL BLOOD GAS TCO2 32.1 mmol/L (22-28)
[2018-02-19] MEDS ORDERED: Albuterol 0.083% Inhal Sol (2.5 mg/3 mL) UD INH STA (17:37)
[2018-02-19 17:48] LABS: BLOOD UREA NITROGEN 14 mg/dl (9-20); CALCIUM 8.3 mg/dL (8.4-10.2); GFR AFRICAN-AMERICAN > 60; GFR NON-AFRICAN AMERICAN > 60
[2018-02-19] MEDS ORDERED: Sodium Bicarbonate 7.5% (0.9 MEQ/ML) 50ML INJ IV STA (17:48)
[2018-02-19] MEDS ORDERED: Dextrose 50% SYRINGE Inj (50 ml) IVP ONE (17:54)
[2018-02-19] MEDS ORDERED: Chlorhexidine Gluconate 1 APPL/PKT TP ONE (18:11)
[2018-02-19] MEDS ORDERED: Insulin Regular 100 units/ml IV ONE (18:44)
[2018-02-19] MEDS ORDERED: Dexmedetomidine Hydrochloride 400 MCG in Sodium Chloride 0.9% 96 ML IV ONE (18:55)
[2018-02-19 21:08] LABS: ALB/GLOB RATIO 1.2 (1.0-2.1); ALBUMIN 3.8 g/dL (3.5-5.0); ALT/SGPT 46 U/L (21-72); AST/SGOT 55 U/L (17-59); BLOOD UREA NITROGEN 14 mg/dl (9-20); CALCIUM 8.6 mg/dL (8.4-10.2); GFR AFRICAN-AMERICAN > 60; GFR NON-AFRICAN AMERICAN > 60
[2018-02-19 21:18] LABS: ABG ALLEN TEST YES; ARTERIAL BLOOD GAS HCO3 27.8 mmol/L (21-28); ARTERIAL BLOOD GAS HEMOGLOBIN 13.1 g/dL (11.7-17.4); ARTERIAL BLOOD GAS O2 CAPACITY 17.8 mL/dL (16-24); ARTERIAL BLOOD GAS O2 CONTENT 17.2 ML/dL (15-23); ARTERIAL BLOOD GAS O2 SAT 96.6 % (95-98); ARTERIAL BLOOD GAS PCO2 54 mm/Hg (35-45); ARTERIAL BLOOD GAS PH 7.36 (7.35-7.45); ARTERIAL BLOOD GAS PO2 66 mm/Hg (80-100); ARTERIAL BLOOD GAS TCO2 32.2 mmol/L (22-28)
[2018-02-20] MEDS: Dexmedetomidine Hydrochloride 400 MCG in Sodium Chloride 0.9% 96 ML IV SCH ×4 (01:22→22:30)
[2018-02-20] MEDS: Sodium Chloride 0.9% 1,000 ML IV SCH ×5 (02:35→19:18)
[2018-02-20] MEDS: Albuterol-Ipratrop 3 mg / 0.5 (3 ml) UD INH SCH ×6 (04:39→19:57)
[2018-02-20] MEDS: MethylPREDNISolone 40 mg Vial IVP SCH ×4 (04:46→21:28)
[2018-02-20 05:00] LABS: ABG ALLEN TEST YES; ARTERIAL BLOOD GAS HCO3 26.4 mmol/L (21-28); ARTERIAL BLOOD GAS HEMOGLOBIN 12.1 g/dL (11.7-17.4); ARTERIAL BLOOD GAS O2 CONTENT 18.1 ML/dL (15-23); ARTERIAL BLOOD GAS O2 SAT 100.5 % (95-98); ARTERIAL BLOOD GAS PCO2 68 mm/Hg (35-45); ARTERIAL BLOOD GAS PH 7.26 (7.35-7.45); ARTERIAL BLOOD GAS PO2 535 mm/Hg (80-100); ARTERIAL BLOOD GAS TCO2 32.6 mmol/L (22-28)
[2018-02-20 05:38] LABS: HEMOGLOBIN 12.2 g/dL (12.0-18.0); MEAN CELL VOLUME 95.5 fl (80.0-94.0); MEAN CORPUSCULAR HEMOGLOBIN 30.1 pg (27.0-31.0); MEAN CORPUSCULAR HGB CONC 31.5 g/dL (33.0-37.0); RBC 4.04 Mil/uL (4.40-5.90); RED CELL DISTRIBUTION WIDTH 14.1 % (11.5-14.5); WHITE BLOOD COUNT 14.6 K/uL (4.8-10.8)
[2018-02-20 05:46] LABS: BLOOD UREA NITROGEN 21 mg/dl (9-20); CALCIUM 8.1 mg/dL (8.4-10.2); GFR AFRICAN-AMERICAN > 60; GFR NON-AFRICAN AMERICAN > 60
[2018-02-20] MEDS ORDERED: Sod Polystyrene Sulf 15 gm/60 ml Susp PO ONE ×2 (05:52→13:57)
[2018-02-20] MEDS ORDERED: Insulin Regular 100 units/ml IV STA (05:53)
[2018-02-20] MEDS ORDERED: Dextrose 50% SYRINGE Inj (50 ml) IVP STA (05:53)
[2018-02-20] MEDS ORDERED: Sodium Bicarbonate 7.5% (0.9 MEQ/ML) 50ML INJ IV ONE (06:01)
--- NOTE | 2018-02-20 07:15 | CP.PCM.PN ---
Subjective - Date & Time of Evaluation Date of Evaluation: 02/20/18 Time of Evaluation: 07:15 - Subjective Subjective: pt intubated, sedated on precedex awaiting CK levels for possible rhabdo +wheezes, continue tx hyper K+ respiratory acidosis. HD stable Objective - Vital Signs/Intake and Output Vital Signs (last 24 hours): Temp Pulse Resp BP Pulse Ox 99 F 100 H 23 114/66 100 02/20/18 04:00 02/20/18 06:00 02/20/18 06:00 02/20/18 06:00 02/20/18 06:00 Intake and Output: 02/20/18 02/20/18 06:59 18:59 Intake Total 1704.0 Output Total 950 Balance 754.0 - Medications Medications: Current Medications Albuterol/Ipratropium (Duoneb 3 Mg/0.5 Mg (3 Ml) Ud) 3 ml INH RQ4 RODRIGO Last Admin: 02/20/18 07:14 Dose: Not Given Enoxaparin Sodium (Lovenox) 40 mg SC DAILY RODRIGO PRN Reason: Protocol Last Admin: 02/19/18 11:06 Dose: Not Given Propofol (Diprivan) 1,000 mg in 100 mls @ 2.817 mls/hr IV .Q24H RODRIGO; 5 MCG/KG/ MIN PRN Reason: Protocol Stop: 02/20/18 09:28 Last Titration: 02/20/18 02:00 Dose: 0 mcg/kg/min, 0 mls/hr Dexmedetomidine HCl 400 mcg/ (Sodium Chloride) 100 mls @ 4.69 mls/hr IV .[id number] RODRIGO; 0.2 MCG/KG/HR PRN Reason: Protocol Last Titration: 02/20/18 05:42 Dose: 1.5 mcg/kg/hr, 35.21 mls/hr Sodium Chloride (Sodium Chloride 0.9%) 1,000 mls @ 200 mls/hr IV .Q5H RODRIGO Stop: 02/21/18 06:50 Last Admin: 02/20/18 06:57 Dose: 200 mls/hr Lorazepam (Ativan) 2 mg IM Q4 PRN PRN Reason: Agitation Methylprednisolone (Solu-Medrol) 40 mg IVP Q6 RODRIGO Last Admin: 02/20/18 04:46 Dose: 40 mg Metoclopramide HCl (Reglan) 10 mg IVP Q6H PRN PRN Reason: Nausea/Vomiting Pantoprazole Sodium (Protonix Inj) 40 mg IVP DAILY RODRIGO - Labs Labs: 02/20/18 04:19 02/20/18 04:19 - Constitutional Appears: Non-toxic, No Acute Distress - Head Exam Head Exam: ATRAUMATIC, NORMOCEPHALIC - Eye Exam Eye Exam: EOMI, Normal appearance - ENT Exam ENT Exam: Mucous Membranes Moist, Normal Oropharynx - Respiratory Exam Respiratory Exam: Wheezes. absent: Decreased Breath Sounds, Rales - Cardiovascular Exam Cardiovascular Exam: RRR, +S1, +S2 - GI/Abdominal Exam GI & Abdominal Exam: Soft, Normal Bowel Sounds. absent: Organomegaly - Extremities Exam Extremities Exam: Full ROM, Normal Capillary Refill - Back Exam Back Exam: absent: CVA tenderness (L), CVA tenderness (R) - Neurological Exam Neurological Exam: Reflexes Normal. absent: Alert (vented, sedated), Awake - Psychiatric Exam Additional comments: vented, sedated - Skin Skin Exam: Dry, Warm Assessment and Plan - Assessment and Plan (Free Text) Plan: 47 years old male with hx of Asthma, substance abuse and Schizophrenia who comes with one day of worsening SOB, associated with generalized chest pain. He came into the ED talking but became more somnolent, but arousable. He received 3 sets of Bronchodilator but without much relief. Pt was intubated, sedated, + Respiratory failure, +respiratory acidosis, admitted to ICU for further management. Acute Respiratory Failure Respiratory Acidosis Acute Asthma Exacerbation - Intubated, sedated on Precedex - Solu-medrol 40mg Q6h - Duoneb Q4H - Albuterol Q2h PRN - Mucinex 600mg Q12 - IV fluid Hyperkalemia - Kayexalate - follow electrolytes Hyperglycemia - Hba1c Hx of Drug Abuse with heroin - monitor withdrawal sx - likely cause of tachycardia #. DVT prophylaxis with Lovenox #. Code Status: Full
--- NOTE | 2018-02-20 07:50 | CP.CCUPN ---
CCU Subjective - Physician Review Events Since Last Encounter (Free Text): Patient on ventilator, on PRVC, sedated, no fever, no vomiting, no pressors, events reviewed CCU Objective - Vital Signs / Intake & Output Vital Signs (Last 4 hours): Vital Signs Temp Pulse Resp BP Pulse Ox 02/20/18 07:00 115 H 21 107/67 98 02/20/18 06:00 100 H 23 114/66 100 02/20/18 05:00 106 H 25 H 109/55 L 99 02/20/18 04:00 99 F 103 H 30 H 109/66 100 Intake and Output (Last 8hrs): Intake & Output 02/19/18 02/20/18 02/20/18 22:59 06:59 14:59 Intake Total 776 1378.0 Output Total 950 950 Balance -174 428.0 Intake: IV 726 1378.0 Intake, Piggyback 50 Output: Urine 950 950 Urethral (Soares) 950 950 - Physical Exam Head: Positive for: Atraumatic, Normocephalic Pupils: Positive for: PERRL Conjunctiva: Positive for: Normal Mouth: Positive for: Moist Mucous Membranes Nose (Internal): Positive for: Normal Inspection Neck: Positive for: Normal Range of Motion Respiratory/Chest: Positive for: Wheezes Cardiovascular: Positive for: Regular Rate and Rhythm Abdomen: Positive for: Normal Bowel Sounds Upper Extremity: Positive for: Normal Inspection Lower Extremity: Positive for: Normal Inspection Neurological: Positive for: Other (on ventilator, sedated) Psychiatric: Positive for: Other (on ventilator, sedated) - Medications Active Medications: Active Medications Generic Name Dose Route Start Last Admin Trade Name Freq PRN Reason Stop Dose Admin Albuterol/Ipratropium 3 ml 02/19/18 08:00 02/20/18 07:14 Duoneb 3 Mg/0.5 Mg (3 Ml) Ud INH Not Given RQ4 RODRIGO Enoxaparin Sodium 40 mg 02/19/18 09:00 02/19/18 11:06 Lovenox SC Not Given DAILY RODRIGO Protocol Propofol 1,000 mg in 100 mls @ 2.817 mls/hr 02/19/18 09:30 02/20/18 02:00 Diprivan IV 02/20/18 09:28 0 mcg/kg/min .Q24H RODRIGO 0 mls/hr Protocol Titration 5 MCG/KG/MIN Dexmedetomidine HCl 400 mcg/ 100 mls @ 4.69 mls/hr 02/19/18 20:45 02/20/18 05 :42 Sodium Chloride IV 1.5 mcg/kg/hr .[id number] RODRIGO 35.21 mls/hr Protocol Titration 0.2 MCG/KG/HR Sodium Chloride 1,000 mls @ 200 mls/hr 02/20/18 07:00 02/20/18 06:57 Sodium Chloride 0.9% IV 02/21/18 06:50 200 mls/hr .Q5H RODRIGO Administration Lorazepam 2 mg 02/20/18 06:24 Ativan IM Q4 PRN Agitation Methylprednisolone 40 mg 02/19/18 10:00 02/20/18 04:46 Solu-Medrol IVP 40 mg Q6 RODRIGO Administration Metoclopramide HCl 10 mg 02/19/18 09:51 Reglan IVP Q6H PRN Nausea/Vomiting Pantoprazole Sodium 40 mg 02/20/18 09:00 Protonix Inj IVP DAILY RODRIGO - Patient Studies Lab Studies: Lab Studies 02/20/18 02/20/18 02/20/18 Range/Units 06:33 04:19 04:19 WBC 14.6 H D (4.8-10.8) K/uL RBC 4.04 L (4.40-5.90) Mil/uL Hgb 12.2 (12.0-18.0) g/dL Hct 38.6 (35.0-51.0) % MCV 95.5 H D (80.0-94.0) fl MCH 30.1 (27.0-31.0) pg MCHC 31.5 L (33.0-37.0) g/dL RDW 14.1 (11.5-14.5) % Plt Count 158 (130-400) K/uL pCO2 (35-45) mm/Hg pO2 (80-100) mm/Hg HCO3 (21-28) mmol/L ABG pH (7.35-7.45) ABG Total CO2 (22-28) mmol/L ABG O2 Saturation (95-98) % ABG O2 Content (15-23) ML/dL ABG Base Excess (-2.0-3.0) mmol/L ABG Hemoglobin (11.7-17.4) g/dL ABG Carboxyhemoglobin (0.5-1.5) % POC ABG HHb (Measured) (0.0-5.0) % ABG Methemoglobin (0.0-3.0) % ABG O2 Capacity (16-24) mL/dL Jam Test ABG Potassium (3.6-5.2) mmol/L A-a O2 Difference mm/Hg Hgb O2 Saturation (95.0-98.0) % Sodium 139 (132-148) mmol/L Chloride 105 (98-107) mmol/L Glucose (75-110) mg/dL Lactate (0.7-2.1) mmol/L Vent Mode Mechanical Rate FiO2 % Tidal Volume PEEP Inspiratory BiPAP Expiratory BiPAP Crit Value Called To Crit Value Called By Crit Value Read Back Blood Gas Notified Time Potassium 6.8 H* D (3.6-5.0) MMOL/L Carbon Dioxide 24 (22-30) mmol/L Anion Gap 17 (10-20) BUN 21 H (9-20) mg/dl Creatinine 1.2 (0.8-1.5) mg/dl Est GFR ( Amer) > 60 Est GFR (Non-Af Amer) > 60 POC Glucose (mg/dL) 154 H (65-110) mg/dL Random Glucose 142 H (75-110) mg/dL Calcium 8.1 L (8.4-10.2) mg/dL Total Bilirubin (0.2-1.3) mg/dl AST (17-59) U/L ALT (21-72) U/L Alkaline Phosphatase (38-126) U/L Total Protein (6.3-8.2) G/DL Albumin (3.5-5.0) g/dL Globulin (2.2-3.9) gm/dL Albumin/Globulin Ratio (1.0-2.1) Arterial Blood Potassium (3.6-5.2) mmol/L Urine Opiates Screen (NEGATIVE) Urine Methadone Screen (NEGATIVE) Ur Barbiturates Screen (NEGATIVE) Ur Phencyclidine Scrn (NEGATIVE) Ur Amphetamines Screen (NEGATIVE) U Benzodiazepines Scrn (NEGATIVE) U Oth Cocaine Metabols (NEGATIVE) U Cannabinoids Screen (NEGATIVE) 02/20/18 02/19/18 02/19/18 Range/Units 04:00 20:30 19:00 WBC (4.8-10.8) K/uL RBC (4.40-5.90) Mil/uL Hgb (12.0-18.0) g/dL Hct (35.0-51.0) % MCV (80.0-94.0) fl MCH (27.0-31.0) pg MCHC (33.0-37.0) g/dL RDW (11.5-14.5) % Plt Count (130-400) K/uL pCO2 68 H 54 H (35-45) mm/Hg pO2 535 H 66 L (80-100) mm/Hg HCO3 26.4 27.8 (21-28) mmol/L ABG pH 7.26 L 7.36 (7.35-7.45) ABG Total CO2 32.6 H 32.2 H (22-28) mmol/L ABG O2 Saturation 100.5 H 96.6 (95-98) % ABG O2 Content 18.1 17.2 (15-23) ML/dL ABG Base Excess 1.8 3.8 H (-2.0-3.0) mmol/L ABG Hemoglobin 12.1 13.1 (11.7-17.4) g/dL ABG Carboxyhemoglobin 1.3 1.6 H (0.5-1.5) % POC ABG HHb (Measured) -0.5 L 3.3 (0.0-5.0) % ABG Methemoglobin 1.5 1.6 (0.0-3.0) % ABG O2 Capacity 18.0 17.8 (16-24) mL/dL Jam Test Yes Yes ABG Potassium (3.6-5.2) mmol/L A-a O2 Difference 93.0 366.0 mm/Hg Hgb O2 Saturation 97.8 93.5 L (95.0-98.0) % Sodium 140 (132-148) mmol/L Chloride 102 (98-107) mmol/L Glucose (75-110) mg/dL Lactate (0.7-2.1) mmol/L Vent Mode A/c A/c Mechanical Rate 16 16 FiO2 100.0 70.0 % Tidal Volume 500 500 PEEP 5 0 Inspiratory BiPAP Expiratory BiPAP Crit Value Called To Dr selene ding Crit Value Called By Arian Crit Value Read Back Y Blood Gas Notified Time 500 Potassium 4.8 (3.6-5.0) MMOL/L Carbon Dioxide 29 (22-30) mmol/L Anion Gap 14 (10-20) BUN 14 (9-20) mg/dl Creatinine 0.8 (0.8-1.5) mg/dl Est GFR ( Amer) > 60 Est GFR (Non-Af Amer) > 60 POC Glucose (mg/dL) (65-110) mg/dL Random Glucose 124 H (75-110) mg/dL Calcium 8.6 (8.4-10.2) mg/dL Total Bilirubin 0.5 (0.2-1.3) mg/dl AST 55 (17-59) U/L ALT 46 (21-72) U/L Alkaline Phosphatase 67 (38-126) U/L Total Protein 7.0 (6.3-8.2) G/DL Albumin 3.8 (3.5-5.0) g/dL Globulin 3.2 (2.2-3.9) gm/dL Albumin/Globulin Ratio 1.2 (1.0-2.1) Arterial Blood Potassium (3.6-5.2) mmol/L Urine Opiates Screen (NEGATIVE) Urine Methadone Screen (NEGATIVE) Ur Barbiturates Screen (NEGATIVE) Ur Phencyclidine Scrn (NEGATIVE) Ur Amphetamines Screen (NEGATIVE) U Benzodiazepines Scrn (NEGATIVE) U Oth Cocaine Metabols (NEGATIVE) U Cannabinoids Screen (NEGATIVE) 02/19/18 02/19/18 02/19/18 Range/Units 17:18 16:56 12:11 WBC (4.8-10.8) K/uL RBC (4.40-5.90) Mil/uL Hgb (12.0-18.0) g/dL Hct (35.0-51.0) % MCV (80.0-94.0) fl MCH (27.0-31.0) pg MCHC (33.0-37.0) g/dL RDW (11.5-14.5) % Plt Count (130-400) K/uL pCO2 73 H* 63 H (35-45) mm/Hg pO2 547 H 476 H (80-100) mm/Hg HCO3 25.0 24.2 (21-28) mmol/L ABG pH 7.22 L 7.25 L (7.35-7.45) ABG Total CO2 32.1 H 29.5 H (22-28) mmol/L ABG O2 Saturation 100.8 H 100.6 H (95-98) % ABG O2 Content 20.4 (15-23) ML/dL ABG Base Excess 0.1 -1.0 (-2.0-3.0) mmol/L ABG Hemoglobin 13.8 (11.7-17.4) g/dL ABG Carboxyhemoglobin 1.6 H (0.5-1.5) % POC ABG HHb (Measured) -0.8 L (0.0-5.0) % ABG Methemoglobin 1.6 (0.0-3.0) % ABG O2 Capacity 20.2 (16-24) mL/dL Jam Test Yes Yes ABG Potassium 5.2 (3.6-5.2) mmol/L A-a O2 Difference 75.0 158.0 mm/Hg Hgb O2 Saturation 97.6 (95.0-98.0) % Sodium 140 135.0 (132-148) mmol/L Chloride 102 108.0 H (98-107) mmol/L Glucose 152 H (75-110) mg/dL Lactate 1.0 (0.7-2.1) mmol/L Vent Mode A/c Prvc/ac Mechanical Rate 16 16 FiO2 100.0 100.0 % Tidal Volume 500 600 PEEP 0 Inspiratory BiPAP Expiratory BiPAP Crit Value Called To Dr sd curtis Crit Value Called By Arian Crit Value Read Back Y Blood Gas Notified Time 1700 Potassium 6.7 H* D (3.6-5.0) MMOL/L Carbon Dioxide 27 (22-30) mmol/L Anion Gap 18 (10-20) BUN 14 (9-20) mg/dl Creatinine 0.8 (0.8-1.5) mg/dl Est GFR ( Amer) > 60 Est GFR (Non-Af Amer) > 60 POC Glucose (mg/dL) (65-110) mg/dL Random Glucose 120 H (75-110) mg/dL Calcium 8.3 L (8.4-10.2) mg/dL Total Bilirubin (0.2-1.3) mg/dl AST (17-59) U/L ALT (21-72) U/L Alkaline Phosphatase (38-126) U/L Total Protein (6.3-8.2) G/DL Albumin (3.5-5.0) g/dL Globulin (2.2-3.9) gm/dL Albumin/Globulin Ratio (1.0-2.1) Arterial Blood Potassium 5.2 (3.6-5.2) mmol/L Urine Opiates Screen (NEGATIVE) Urine Methadone Screen (NEGATIVE) Ur Barbiturates Screen (NEGATIVE) Ur Phencyclidine Scrn (NEGATIVE) Ur Amphetamines Screen (NEGATIVE) U Benzodiazepines Scrn (NEGATIVE) U Oth Cocaine Metabols (NEGATIVE) U Cannabinoids Screen (NEGATIVE) 02/19/18 02/19/18 Range/Units 09:36 08:11 WBC (4.8-10.8) K/uL RBC (4.40-5.90) Mil/uL Hgb (12.0-18.0) g/dL Hct (35.0-51.0) % MCV (80.0-94.0) fl MCH (27.0-31.0) pg MCHC (33.0-37.0) g/dL RDW (11.5-14.5) % Plt Count (130-400) K/uL pCO2 42 (35-45) mm/Hg pO2 249 H (80-100) mm/Hg HCO3 25.1 (21-28) mmol/L ABG pH 7.39 (7.35-7.45) ABG Total CO2 26.7 (22-28) mmol/L ABG O2 Saturation 100.5 H (95-98) % ABG O2 Content (15-23) ML/dL ABG Base Excess 0.2 (-2.0-3.0) mmol/L ABG Hemoglobin (11.7-17.4) g/dL ABG Carboxyhemoglobin (0.5-1.5) % POC ABG HHb (Measured) (0.0-5.0) % ABG Methemoglobin (0.0-3.0) % ABG O2 Capacity (16-24) mL/dL Jam Test Yes ABG Potassium 4.0 (3.6-5.2) mmol/L A-a O2 Difference 412.0 mm/Hg Hgb O2 Saturation (95.0-98.0) % Sodium 131.0 L (132-148) mmol/L Chloride 104.0 (98-107) mmol/L Glucose 171 H (75-110) mg/dL Lactate 1.4 (0.7-2.1) mmol/L Vent Mode Bipap Mechanical Rate 16 FiO2 100.0 % Tidal Volume PEEP Inspiratory BiPAP 10 Expiratory BiPAP 5 Crit Value Called To Crit Value Called By Crit Value Read Back Blood Gas Notified Time Potassium (3.6-5.0) MMOL/L Carbon Dioxide (22-30) mmol/L Anion Gap (10-20) BUN (9-20) mg/dl Creatinine (0.8-1.5) mg/dl Est GFR ( Amer) Est GFR (Non-Af Amer) POC Glucose (mg/dL) (65-110) mg/dL Random Glucose (75-110) mg/dL Calcium (8.4-10.2) mg/dL Total Bilirubin (0.2-1.3) mg/dl AST (17-59) U/L ALT (21-72) U/L Alkaline Phosphatase (38-126) U/L Total Protein (6.3-8.2) G/DL Albumin (3.5-5.0) g/dL Globulin (2.2-3.9) gm/dL Albumin/Globulin Ratio (1.0-2.1) Arterial Blood Potassium 4.0 (3.6-5.2) mmol/L Urine Opiates Screen Positive H (NEGATIVE) Urine Methadone Screen Negative (NEGATIVE) Ur Barbiturates Screen Negative (NEGATIVE) Ur Phencyclidine Scrn Positive H (NEGATIVE) Ur Amphetamines Screen Negative (NEGATIVE) U Benzodiazepines Scrn Positive (NEGATIVE) U Oth Cocaine Metabols Positive H (NEGATIVE) U Cannabinoids Screen Negative (NEGATIVE) Laboratory Results - last 24 hr 02/19/18 02/19/18 02/19/18 08:11 09:36 12:11 WBC RBC Hgb Hct MCV MCH MCHC RDW Plt Count pCO2 42 63 H pO2 249 H 476 H HCO3 25.1 24.2 ABG pH 7.39 7.25 L ABG Total CO2 26.7 29.5 H ABG O2 Saturation 100.5 H 100.6 H ABG O2 Content ABG Base Excess 0.2 -1.0 ABG Hemoglobin ABG Carboxyhemoglobin POC ABG HHb (Measured) ABG Methemoglobin ABG O2 Capacity Jam Test Yes Yes ABG Potassium 4.0 5.2 A-a O2 Difference 412.0 158.0 Hgb O2 Saturation Sodium 131.0 L 135.0 Chloride 104.0 108.0 H Glucose 171 H 152 H Lactate 1.4 1.0 Vent Mode Bipap Prvc/ac Mechanical Rate 16 16 FiO2 100.0 100.0 Tidal Volume 600 PEEP Inspiratory BiPAP 10 Expiratory BiPAP 5 Crit Value Called To Crit Value Called By Crit Value Read Back Blood Gas Notified Time Potassium Carbon Dioxide Anion Gap BUN Creatinine Est GFR ( Amer) Est GFR (Non-Af Amer) POC Glucose (mg/dL) Random Glucose Calcium Total Bilirubin AST ALT Alkaline Phosphatase Total Protein Albumin Globulin Albumin/Globulin Ratio Arterial Blood Potassium 4.0 5.2 Urine Opiates Screen Positive H Urine Methadone Screen Negative Ur Barbiturates Screen Negative Ur Phencyclidine Scrn Positive H Ur Amphetamines Screen Negative U Benzodiazepines Scrn Positive U Oth Cocaine Metabols Positive H U Cannabinoids Screen Negative 02/19/18 02/19/18 02/19/18 16:56 17:18 19:00 WBC RBC Hgb Hct MCV MCH MCHC RDW Plt Count pCO2 73 H* 54 H pO2 547 H 66 L HCO3 25.0 27.8 ABG pH 7.22 L 7.36 ABG Total CO2 32.1 H 32.2 H ABG O2 Saturation 100.8 H 96.6 ABG O2 Content 20.4 17.2 ABG Base Excess 0.1 3.8 H ABG Hemoglobin 13.8 13.1 ABG Carboxyhemoglobin 1.6 H 1.6 H POC ABG HHb (Measured) -0.8 L 3.3 ABG Methemoglobin 1.6 1.6 ABG O2 Capacity 20.2 17.8 Jam Test Yes Yes ABG Potassium A-a O2 Difference 75.0 366.0 Hgb O2 Saturation 97.6 93.5 L Sodium 140 Chloride 102 Glucose Lactate Vent Mode A/c A/c Mechanical Rate 16 16 FiO2 100.0 70.0 Tidal Volume 500 500 PEEP 0 0 Inspiratory BiPAP Expiratory BiPAP Crit Value Called To Dr sd curtis Crit Value Called By Crit Value Read Back Y Blood Gas Notified Time 1700 Potassium 6.7 H* D Carbon Dioxide 27 Anion Gap 18 BUN 14 Creatinine 0.8 Est GFR ( Amer) > 60 Est GFR (Non-Af Amer) > 60 POC Glucose (mg/dL) Random Glucose 120 H Calcium 8.3 L Total Bilirubin AST ALT Alkaline Phosphatase Total Protein Albumin Globulin Albumin/Globulin Ratio Arterial Blood Potassium Urine Opiates Screen Urine Methadone Screen Ur Barbiturates Screen Ur Phencyclidine Scrn Ur Amphetamines Screen U Benzodiazepines Scrn U Oth Cocaine Metabols U Cannabinoids Screen 02/19/18 02/20/18 02/20/18 20:30 04:00 04:19 WBC RBC Hgb Hct MCV MCH MCHC RDW Plt Count pCO2 68 H pO2 535 H HCO3 26.4 ABG pH 7.26 L ABG Total CO2 32.6 H ABG O2 Saturation 100.5 H ABG O2 Content 18.1 ABG Base Excess 1.8 ABG Hemoglobin 12.1 ABG Carboxyhemoglobin 1.3 POC ABG HHb (Measured) -0.5 L ABG Methemoglobin 1.5 ABG O2 Capacity 18.0 Jam Test Yes ABG Potassium A-a O2 Difference 93.0 Hgb O2 Saturation 97.8 Sodium 140 139 Chloride 102 105 Glucose Lactate Vent Mode A/c Mechanical Rate 16 FiO2 100.0 Tidal Volume 500 PEEP 5 Inspiratory BiPAP Expiratory BiPAP Crit Value Called To Dr selene ding Crit Value Called By Crit Value Read Back Y Blood Gas Notified Time 500 Potassium 4.8 6.8 H* D Carbon Dioxide 29 24 Anion Gap 14 17 BUN 14 21 H Creatinine 0.8 1.2 Est GFR ( Amer) > 60 > 60 Est GFR (Non-Af Amer) > 60 > 60 POC Glucose (mg/dL) Random Glucose 124 H 142 H Calcium 8.6 8.1 L Total Bilirubin 0.5 AST 55 ALT 46 Alkaline Phosphatase 67 Total Protein 7.0 Albumin 3.8 Globulin 3.2 Albumin/Globulin Ratio 1.2 Arterial Blood Potassium Urine Opiates Screen Urine Methadone Screen Ur Barbiturates Screen Ur Phencyclidine Scrn Ur Amphetamines Screen U Benzodiazepines Scrn U Oth Cocaine Metabols U Cannabinoids Screen 02/20/18 02/20/18 04:19 06:33 WBC 14.6 H D RBC 4.04 L Hgb 12.2 Hct 38.6 MCV 95.5 H D MCH 30.1 MCHC 31.5 L RDW 14.1 Plt Count 158 pCO2 pO2 HCO3 ABG pH ABG Total CO2 ABG O2 Saturation ABG O2 Content ABG Base Excess ABG Hemoglobin ABG Carboxyhemoglobin POC ABG HHb (Measured) ABG Methemoglobin ABG O2 Capacity Jam Test ABG Potassium A-a O2 Difference Hgb O2 Saturation Sodium Chloride Glucose Lactate Vent Mode Mechanical Rate FiO2 Tidal Volume PEEP Inspiratory BiPAP Expiratory BiPAP Crit Value Called To Crit Value Called By Crit Value Read Back Blood Gas Notified Time Potassium Carbon Dioxide Anion Gap BUN Creatinine Est GFR ( Amer) Est GFR (Non-Af Amer) POC Glucose (mg/dL) 154 H Random Glucose Calcium Total Bilirubin AST ALT Alkaline Phosphatase Total Protein Albumin Globulin Albumin/Globulin Ratio Arterial Blood Potassium Urine Opiates Screen Urine Methadone Screen Ur Barbiturates Screen Ur Phencyclidine Scrn Ur Amphetamines Screen U Benzodiazepines Scrn U Oth Cocaine Metabols U Cannabinoids Screen Fingerstick Blood Sugar Results: 154 Critical Care Progress Note - Nutrition Nutrition: Nutrition Category Date Time Status NPO Diet [DIET] Diets 02/19/18 Breakfast Active Assessment/Plan - Assessment and Plan (Free Text) Assessment: A/P Respiratory failure, asthma exacerbation, drug abuse, schizophrenia, hyperkalemia, hyperglycemia, rhabdomyolysis - Ventilatory support - Pulmonary toilets - Steroid, bronchodilators - IV fluid - Correct K - DVT prophylaxis Critical care 35 min
[2018-02-20] MEDS: Enoxaparin 40 mg Syringe SC SCH (08:04)
--- NOTE | 2018-02-20 08:37 | RAD ---
PROCEDURE: CHEST RADIOGRAPH, 1 VIEW HISTORY: intubated COMPARISON: 02/19/2018. FINDINGS: The endotracheal tube terminates 5 cm proximal to the phil. The nasogastric tube terminates in the stomach. LUNGS: The lungs are well inflated. There is interval development of right upper lobe partial collapse. The left lung is clear. PLEURA: No pneumothorax or pleural fluid seen. CARDIOVASCULAR: Normal. OSSEOUS STRUCTURES: No significant abnormalities. VISUALIZED UPPER ABDOMEN: Normal. OTHER FINDINGS: None. IMPRESSION: Interval development of partial collapse of the right upper lobe. Stable position of support tubes.
--- NOTE | 2018-02-20 10:03 | CT ---
PROCEDURE: CT HEAD WITHOUT CONTRAST. HISTORY: altered mental status, somnolence COMPARISON: 09/26/2016. TECHNIQUE: Axial computed tomography images were obtained through the head/brain without intravenous contrast. Radiation dose: Total exam DLP = 1300.57 mGy-cm. This CT exam was performed using one or more of the following dose reduction techniques: Automated exposure control, adjustment of the mA and/or kV according to patient size, and/or use of iterative reconstruction technique. FINDINGS: HEMORRHAGE: No intracranial hemorrhage. BRAIN: Decker-white matter differentiation is preserved. There is no mass, mass effect or abnormal extra-axial fluid collection. VENTRICLES: The ventricles are normal in size, shape and configuration. CALVARIUM: The skull base and calvarium are normal. PARANASAL SINUSES: There is mild mucosal thickening in the maxillary and ethmoid sinuses. There is and fluid in the sphenoid sinus, expected in intubated patient. MASTOID AIR CELLS: Predominantly clear. OTHER FINDINGS: None. IMPRESSION: No acute intracranial abnormality.
[2018-02-20 10:33] LABS: ABG ALLEN TEST YES; ARTERIAL BLOOD GAS HCO3 28.9 mmol/L (21-28); ARTERIAL BLOOD GAS HEMOGLOBIN 12.2 g/dL (11.7-17.4); ARTERIAL BLOOD GAS O2 CAPACITY 16.7 mL/dL (16-24); ARTERIAL BLOOD GAS O2 CONTENT 16.7 ML/dL (15-23); ARTERIAL BLOOD GAS O2 SAT 99.8 % (95-98); ARTERIAL BLOOD GAS PCO2 47 mm/Hg (35-45); ARTERIAL BLOOD GAS PH 7.42 (7.35-7.45); ARTERIAL BLOOD GAS PO2 113 mm/Hg (80-100); ARTERIAL BLOOD GAS TCO2 31.9 mmol/L (22-28)
[2018-02-20 11:17] LABS: SQUAMOUS EPITHIAL < 1 /hpf (0-5); URINE BACTERIA RARE (<OCC); URINE BILIRUBIN NEGATIVE (NEGATIVE); URINE BLOOD MODERATE (NEGATIVE); URINE CLARITY SLIGHTY-CLOUDY (Clear); URINE COLOR STRAW (YELLOW); URINE GLUCOSE (UA) >=500 mg/dL (Normal); URINE LEUKOCYTE ESTERASE NEG Leu/uL (Negative); URINE PROTEIN NEGATIVE (NEGATIVE); URINE UROBILINOGEN 0.2-1.0 mg/dL (0.2-1.0)
[2018-02-20] MEDS ORDERED: Albuterol 0.083% Inhal Sol (2.5 mg/3 mL) UD INH ONE (13:51)
[2018-02-20] MEDS ORDERED: Dextrose 50% SYRINGE Inj (50 ml) IVP ONE (13:56)
[2018-02-20] MEDS ORDERED: Insulin Regular 100 units/ml IV ONE ×2 (14:15→17:53)
[2018-02-21] MEDS: Sodium Chloride 0.9% 1,000 ML IV SCH ×2 (00:08→04:45)
[2018-02-21] MEDS: Dexmedetomidine Hydrochloride 400 MCG in Sodium Chloride 0.9% 96 ML IV SCH ×7 (01:25→21:07)
[2018-02-21] MEDS: MethylPREDNISolone 40 mg Vial IVP SCH ×4 (03:57→21:10)
[2018-02-21] MEDS ORDERED: Midazolam 50 MG in Sodium Chloride 0.9% 50 ML IV ONE (04:36)
[2018-02-21] MEDS: Albuterol-Ipratrop 3 mg / 0.5 (3 ml) UD INH SCH ×6 (05:30→19:14)
[2018-02-21] MEDS: Midazolam 5 MG/ML 50 MG in Sodium Chloride 0.9% 90 ML IV ONE ×2 (05:33→23:03)
[2018-02-21 06:00] LABS: ABG ALLEN TEST YES; ARTERIAL BLOOD GAS HCO3 29.5 mmol/L (21-28); ARTERIAL BLOOD GAS HEMOGLOBIN 12.3 g/dL (11.7-17.4); ARTERIAL BLOOD GAS O2 CAPACITY 16.8 mL/dL (16-24); ARTERIAL BLOOD GAS O2 CONTENT 16.6 ML/dL (15-23); ARTERIAL BLOOD GAS O2 SAT 99.1 % (95-98); ARTERIAL BLOOD GAS PCO2 47 mm/Hg (35-45); ARTERIAL BLOOD GAS PH 7.43 (7.35-7.45); ARTERIAL BLOOD GAS PO2 87 mm/Hg (80-100); ARTERIAL BLOOD GAS TCO2 32.6 mmol/L (22-28)
[2018-02-21 06:04] LABS: MEAN CELL VOLUME 94.3 fl (80.0-94.0); MEAN CORPUSCULAR HEMOGLOBIN 30.4 pg (27.0-31.0); MEAN CORPUSCULAR HGB CONC 32.3 g/dL (33.0-37.0); RBC 3.95 Mil/uL (4.40-5.90); RED CELL DISTRIBUTION WIDTH 13.5 % (11.5-14.5); WHITE BLOOD COUNT 14.1 K/uL (4.8-10.8)
[2018-02-21 06:19] LABS: CALCIUM 8.9 mg/dL (8.4-10.2); GFR AFRICAN-AMERICAN > 60; GFR NON-AFRICAN AMERICAN > 60
[2018-02-21 06:36] LABS: BLOOD UREA NITROGEN 20 mg/dl (9-20)
--- NOTE | 2018-02-21 07:22 | CP.PCM.PN ---
Subjective - Date & Time of Evaluation Date of Evaluation: 02/21/18 Time of Evaluation: 07:22 - Subjective Subjective: pt intubated, sedated. low grade fever this am 100.2, WBC 14K empiric abx were initiated by cyber systems engineer +sedation holiday, pt cont requiring high dose sedation if abg stable again tomorrow, consider extubation Objective - Vital Signs/Intake and Output Vital Signs (last 24 hours): Temp Pulse Resp BP Pulse Ox 99.6 F 78 22 158/97 H 99 02/21/18 04:00 02/21/18 06:00 02/21/18 06:00 02/21/18 06:00 02/21/18 06:00 Intake and Output: 02/21/18 02/21/18 06:59 18:59 Intake Total 1250 Output Total 1800 Balance -550 - Medications Medications: Current Medications Albuterol/Ipratropium (Duoneb 3 Mg/0.5 Mg (3 Ml) Ud) 3 ml INH RQ4 RODRIGO Last Admin: 02/21/18 05:30 Dose: 3 ml Enoxaparin Sodium (Lovenox) 40 mg SC DAILY RODRIGO PRN Reason: Protocol Last Admin: 02/20/18 08:04 Dose: 40 mg Dexmedetomidine HCl 400 mcg/ (Sodium Chloride) 100 mls @ 4.69 mls/hr IV .[id number] RODRIGO; 0.2 MCG/KG/HR PRN Reason: Protocol Last Admin: 02/21/18 06:50 Dose: 1.5 mcg/kg/hr, 35.21 mls/hr Midazolam HCl 50 mg/ Sodium (Chloride) 100 mls @ 4 mls/hr IV .Q24H ONE; 2 MG/HR PRN Reason: Protocol Stop: 02/22/18 04:44 Last Admin: 02/21/18 05:33 Dose: 2 mg/hr, 4 mls/hr Lorazepam (Ativan) 2 mg IM Q4 PRN PRN Reason: Agitation Last Admin: 02/21/18 04:36 Dose: 2 mg Methylprednisolone (Solu-Medrol) 40 mg IVP Q6 RODRIGO Last Admin: 02/21/18 03:57 Dose: 40 mg Metoclopramide HCl (Reglan) 10 mg IVP Q6H PRN PRN Reason: Nausea/Vomiting Pantoprazole Sodium (Protonix Inj) 40 mg IVP DAILY RODRIGO Last Admin: 02/20/18 08:04 Dose: 40 mg - Labs Labs: 02/21/18 04:30 02/21/18 04:30 - Constitutional Appears: Non-toxic, No Acute Distress, Other (intubated, sedated) - Head Exam Head Exam: ATRAUMATIC, NORMOCEPHALIC - Eye Exam Eye Exam: EOMI, Normal appearance, PERRL - ENT Exam ENT Exam: Mucous Membranes Moist, Normal External Ear Exam - Respiratory Exam Respiratory Exam: Clear to Ausculation Bilateral, NORMAL BREATHING PATTERN - Cardiovascular Exam Cardiovascular Exam: RRR, +S1, +S2 - GI/Abdominal Exam GI & Abdominal Exam: Soft, Normal Bowel Sounds. absent: Mass, Organomegaly - Extremities Exam Extremities Exam: absent: Joint Swelling, Pedal Edema - Back Exam Back Exam: absent: CVA tenderness (L), CVA tenderness (R) - Neurological Exam Neurological Exam: absent: Alert, Awake - Psychiatric Exam Additional comments: sedated, unable to assess - Skin Skin Exam: Dry, Warm Assessment and Plan - Assessment and Plan (Free Text) Plan: 47 years old male with hx of Asthma, substance abuse and Schizophrenia who comes with one day of worsening SOB, associated with generalized chest pain. He came into the ED talking but became more somnolent, but arousable. He received 3 sets of Bronchodilator but without much relief. Pt was intubated, sedated, + Respiratory failure, +respiratory acidosis, admitted to ICU for further management. 02/21: low grade fever 100.2, WBC 14k, tachycardic, cyber systems engineer initiated Zosyn for empiric coverage, no obvious source of infection, CXR clear. Stable ABG consider extubation tomorrow. Pt possibly in opioid withdrawal Acute Respiratory Failure Respiratory Acidosis Acute Asthma Exacerbation - Intubated, sedated on Precedex - Solu-medrol 40mg Q6h - Duoneb Q4H - Albuterol Q2h PRN - Mucinex 600mg Q12 - IV fluid - Empiric ABX for fever, wbc, tachycardia (although likely 2/2 withdrawal) Hyperkalemia - Kayexalate - follow electrolytes Hyperglycemia - Hba1c Hx of Drug Abuse with heroin - monitor withdrawal sx - likely cause of tachycardia #. DVT prophylaxis with Lovenox #. Code Status: Full
[2018-02-21] MEDS ORDERED: Multivitamin (MVI) 10 ML, Thiamine 100 MG, Folic Acid 1 MG in Dextrose 5%/0.45% NS 1,00... IV ONE (08:00)
--- NOTE | 2018-02-21 08:40 | RAD ---
HISTORY: intubated COMPARISON: 02/20/2018. FINDINGS: The endotracheal tube terminates 3.5 cm proximal to the phil. The nasogastric tube terminates in the stomach. LUNGS: The lungs are well inflated. There is persistent right upper lobe collapse. The left lung is clear. PLEURA: No significant pleural effusion identified, no pneumothorax apparent. CARDIOVASCULAR: Normal. OSSEOUS STRUCTURES: No significant abnormalities. VISUALIZED UPPER ABDOMEN: Normal. OTHER FINDINGS: None. IMPRESSION: No change in right upper lobe collapse. Clear left lung. Stable position of endotracheal tube.
[2018-02-21] MEDS: Sod Polystyrene Sulf 15 gm/60 ml Susp PO SCH ×3 (09:02→23:00)
[2018-02-21] MEDS: Enoxaparin 40 mg Syringe SC SCH (09:03)
[2018-02-21] MEDS ORDERED: Dexmedetomidine Hydrochloride 400 MCG in Sodium Chloride 0.9% 96 ML IV ONE (10:14)
[2018-02-21] MEDS ORDERED: Midazolam 2 MG/2 ML VIAL IV STA (11:36)
--- NOTE | 2018-02-21 16:06 | CP.PCM.CON ---
History of Present Illness - History of Present Illness History of Present Illness: Pulmonary consult for a 47 y/o M , MHx Bronchial Asthma, Hx of heavy smoker, brought to 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 In ER, Patient was in respiratory distress , treated with Duoneb x 3 , Ms Sulfate , Solu Medrol without relief , He became lethargic and was intubated for respiratory failure. Worsening symptoms: Polysubstance abuse, Cocaine , opiates (Fentanyl , Heroin ) , PCP . As per record, Pt admits to snorting 2 bags of heroin prior to arrival to ED. Aggravated factor: Uncooperative to medical history, Pt intubated. Patient was seen in ICU , intubated , sedated Head CT no acute intracraneal abnormality CXR 02-19 no acute disease CXR 02-20 , 02-21 collapse RUL Patient with fever 100.2 , treated with Zosyn , also with Solu Medrol , Duoneb , Precedex, Versed Review of Systems - Review of Systems Systems not reviewed;Unavailable: Acuity of Condition Past Patient History - Infectious Disease Hx of Infectious Diseases: None - Past Medical History & Family History Past Medical History?: Yes Pertinent Family History: Unknown - Past Social History Smoking Status: Heavy Smoker > 10 Cigarettes Daily Drugs: Cannabis, Cocaine, Opiates Home Situation {Lives}: With Family - CARDIAC Hx Cardiac Disorders: No Hx Hypertension: No - PULMONARY Hx Respiratory Disorders: Yes Hx Asthma: Yes - NEUROLOGICAL Hx Neurological Disorder: No - HEENT Hx HEENT Problems: No - RENAL Hx Chronic Kidney Disease: No - ENDOCRINE/METABOLIC Hx Endocrine Disorders: Yes Hx Diabetes Mellitus Type 2: Yes (??) - HEMATOLOGICAL/ONCOLOGICAL Hx Blood Disorders: No Hx Cancer: No - INTEGUMENTARY Hx Dermatological Problems: No - MUSCULOSKELETAL/RHEUMATOLOGICAL Hx Musculoskeletal Disorders: No - GASTROINTESTINAL Hx Gastrointestinal Disorders: Yes Other/Comment: Hx right inguinal hernia - GENITOURINARY/GYNECOLOGICAL Other/Comment: Hernia right inguinal - PSYCHIATRIC Hx Psychophysiologic Disorder: Yes Hx Schizophrenia: Yes Hx Substance Use: Yes - SURGICAL HISTORY Hx Surgeries: No - ANESTHESIA Hx Anesthesia: No Hx Anesthesia Reactions: No Hx Malignant Hyperthermia: No Meds Allergies/Adverse Reactions: Allergies Allergy/AdvReac Type Severity Reaction Status Date / Time No Known Allergies Allergy Verified 09/26/16 13:28 - Medications Medications: Current Medications Albuterol/Ipratropium (Duoneb 3 Mg/0.5 Mg (3 Ml) Ud) 3 ml INH RQ4 RODRIGO Last Admin: 02/21/18 15:02 Dose: 3 ml Enoxaparin Sodium (Lovenox) 40 mg SC DAILY RODRIGO PRN Reason: Protocol Last Admin: 02/21/18 09:03 Dose: 40 mg Midazolam HCl 50 mg/ Sodium (Chloride) 100 mls @ 4 mls/hr IV .Q24H ONE; 2 MG/HR PRN Reason: Protocol Stop: 02/22/18 04:44 Last Admin: 02/21/18 05:33 Dose: 2 mg/hr, 4 mls/hr Multivitamins/Vitamin C 10 ml/Thiamine HCl 100 mg/ Folic Acid 1 mg/ Dextrose/ Sodium Chloride 1,011.2 mls @ 50 mls/hr IV .[id number] ONE Stop: 02/22/18 04:13 Last Admin: 02/21/18 09:03 Dose: 50 mls/hr Piperacillin Sod/Tazobactam (Sod 3.375 gm/ Sodium Chloride) 100 mls @ 100 mls/ hr IVPB Q6 RODRIGO PRN Reason: Protocol Dexmedetomidine HCl 400 mcg/ (Sodium Chloride) 100 mls @ 25.82 mls/hr IV .Q3H53M RODRIGO; 1.1 MCG/KG/HR PRN Reason: Protocol Last Admin: 02/21/18 14:24 Dose: 1.3 mcg/kg/hr, 30.51 mls/hr Lorazepam (Ativan) 2 mg IM Q4 PRN PRN Reason: Agitation Last Admin: 02/21/18 04:36 Dose: 2 mg Methylprednisolone (Solu-Medrol) 40 mg IVP Q6 [facility] Last Admin: 02/21/18 09:07 Dose: 40 mg Metoclopramide HCl (Reglan) 10 mg IVP Q6H PRN PRN Reason: Nausea/Vomiting Nicotine (Nicoderm Cq) 1 patch TD DAILY [facility] Last Admin: 02/21/18 12:19 Dose: 1 patch Pantoprazole Sodium (Protonix Inj) 40 mg IVP DAILY [facility] Last Admin: 02/21/18 09:04 Dose: 40 mg Sodium Polystyrene Sulfonate (Kayexalate Susp) 30 gm PO Q8H [facility] Last Admin: 02/21/18 09:02 Dose: 30 gm Physical Exam - Constitutional Additional comments: intubated , sedated - Head Exam Head Exam: NORMAL INSPECTION - Eye Exam Eye Exam: PERRL - ENT Exam Additional comments: intubated , OGT - Neck Exam Neck exam: Positive for: Normal Inspection - Respiratory Exam Respiratory Exam: Decreased Breath Sounds - Cardiovascular Exam Cardiovascular Exam: REGULAR RHYTHM - GI/Abdominal Exam GI & Abdominal Exam: Normal Bowel Sounds, Soft - Extremities Exam Extremities exam: Positive for: normal inspection - Back Exam Back exam: NORMAL INSPECTION - Neurological Exam Neurological exam: Reflexes Normal Additional comments: intubated , sedated - Skin Skin Exam: Warm Results - Vital Signs Recent Vital Signs: Last Vital Signs Temp 99.3 F 02/21/18 16:00 Pulse 93 H 02/21/18 16:00 Resp 14 02/21/18 16:00 BP 153/90 H 02/21/18 16:00 Pulse Ox 98 02/21/18 16:00 robert Crump - Labs Result Diagrams: 02/22/18 04:20 02/22/18 04:20 Labs: Laboratory Results - last 24 hr 02/20/18 02/21/18 02/21/18 18:30 04:30 04:30 WBC 14.1 H RBC 3.95 L Hgb 12.0 Hct 37.3 MCV 94.3 H MCH 30.4 MCHC 32.3 L RDW 13.5 Plt Count 197 pCO2 pO2 HCO3 ABG pH ABG Total CO2 ABG O2 Saturation ABG O2 Content ABG Base Excess ABG Hemoglobin ABG Carboxyhemoglobin POC ABG HHb (Measured) ABG Methemoglobin ABG O2 Capacity Jam Test A-a O2 Difference Hgb O2 Saturation Vent Mode Mechanical Rate FiO2 Tidal Volume PEEP Sodium 144 Potassium 5.1 H 5.8 H Chloride 105 Carbon Dioxide 25 Anion Gap 20 BUN 20 Creatinine 0.8 Est GFR ( Amer) > 60 Est GFR (Non-Af Amer) > 60 POC Glucose (mg/dL) Random Glucose 167 H Calcium 8.9 Total Creatine Kinase 02/21/18 02/21/18 02/21/18 04:49 05:48 10:59 WBC RBC Hgb Hct MCV MCH MCHC RDW Plt Count pCO2 47 H pO2 87 HCO3 29.5 H ABG pH 7.43 ABG Total CO2 32.6 H ABG O2 Saturation 99.1 H ABG O2 Content 16.6 ABG Base Excess 5.9 H ABG Hemoglobin 12.3 ABG Carboxyhemoglobin 2.0 H POC ABG HHb (Measured) 0.9 ABG Methemoglobin 1.4 ABG O2 Capacity 16.8 Jam Test Yes A-a O2 Difference 282.0 Hgb O2 Saturation 95.7 Vent Mode A/c Mechanical Rate 18 FiO2 60.0 Tidal Volume 500 PEEP 5 Sodium Potassium Chloride Carbon Dioxide Anion Gap BUN Creatinine Est GFR ( Amer) Est GFR (Non-Af Amer) POC Glucose (mg/dL) 143 H Random Glucose Calcium Total Creatine Kinase 189 H reviewed J.P. - EKG Data EKG comments: reviewed J.P. - Imaging and Cardiology Chest x-ray Status: Report reviewed by me (Heriberto.) CT scan - head Status: Report reviewed by me (Alisia) Assessment & Plan (1) Respiratory failure Status: Acute Priority: High (2) Asthma exacerbation Status: Acute Priority: High (3) Collapse of right lung Status: Acute Priority: High - Assessment and Plan (Free Text) Plan: continue current treatment , Solu Medrol , DuoNeb , Zosyn , Sedation , attempt of weaning , monitor RUL collapse, f/u CXR. - Date & Time Date: 02/21/18 Time: 13:50
[2018-02-21] MEDS: Piperacillin/Tazobact 3.375 GM in Sodium Chloride 0.9% 100 ML IVPB SCH ×2 (16:30→21:09)
[2018-02-21 19:03] LABS: BLOOD UREA NITROGEN 18 mg/dl (9-20); CALCIUM 8.9 mg/dL (8.4-10.2); GFR AFRICAN-AMERICAN > 60; GFR NON-AFRICAN AMERICAN > 60
[2018-02-22] MEDS: Dexmedetomidine Hydrochloride 400 MCG in Sodium Chloride 0.9% 96 ML IV SCH ×4 (00:01→09:33)
[2018-02-22] MEDS: Albuterol-Ipratrop 3 mg / 0.5 (3 ml) UD INH SCH ×7 (00:39→23:45)
[2018-02-22] MEDS: Piperacillin/Tazobact 3.375 GM in Sodium Chloride 0.9% 100 ML IVPB SCH ×4 (05:00→21:22)
[2018-02-22] MEDS: MethylPREDNISolone 40 mg Vial IVP SCH ×3 (05:05→17:27)
[2018-02-22 05:43] LABS: HEMOGLOBIN 12.5 g/dL (12.0-18.0); MEAN CELL VOLUME 93.7 fl (80.0-94.0); MEAN CORPUSCULAR HEMOGLOBIN 30.4 pg (27.0-31.0); MEAN CORPUSCULAR HGB CONC 32.4 g/dL (33.0-37.0); RBC 4.11 Mil/uL (4.40-5.90); RED CELL DISTRIBUTION WIDTH 13.4 % (11.5-14.5); WHITE BLOOD COUNT 11.8 K/uL (4.8-10.8)
[2018-02-22 05:55] LABS: ABG ALLEN TEST YES; ARTERIAL BLOOD GAS HCO3 30.5 mmol/L (21-28); ARTERIAL BLOOD GAS HEMOGLOBIN 12.4 g/dL (11.7-17.4); ARTERIAL BLOOD GAS O2 CAPACITY 17.2 mL/dL (16-24); ARTERIAL BLOOD GAS O2 CONTENT 17.2 ML/dL (15-23); ARTERIAL BLOOD GAS O2 SAT 100.2 % (95-98); ARTERIAL BLOOD GAS PCO2 45 mm/Hg (35-45); ARTERIAL BLOOD GAS PH 7.46 (7.35-7.45); ARTERIAL BLOOD GAS PO2 147 mm/Hg (80-100); ARTERIAL BLOOD GAS TCO2 33.4 mmol/L (22-28)
[2018-02-22 06:00] LABS: BLOOD UREA NITROGEN 19 mg/dl (9-20); CALCIUM 9.1 mg/dL (8.4-10.2); GFR AFRICAN-AMERICAN > 60; GFR NON-AFRICAN AMERICAN > 60
[2018-02-22] MEDS: Enoxaparin 40 mg Syringe SC SCH (08:10)
--- NOTE | 2018-02-22 08:28 | RAD ---
PROCEDURE: CHEST RADIOGRAPH, 1 VIEW HISTORY: Intubated. COMPARISON: 02/21/2018. FINDINGS: The endotracheal tube terminates 3 cm proximal to the phil. The nasogastric tube terminates in the stomach. LUNGS: There is interval resolution of right upper lobe collapse with residual subsegmental atelectasis in the right lobe. The lungs are well inflated. The left lung is clear. PLEURA: No pneumothorax or pleural fluid seen. CARDIOVASCULAR: Normal. OSSEOUS STRUCTURES: No significant abnormalities. VISUALIZED UPPER ABDOMEN: Normal. OTHER FINDINGS: None. IMPRESSION: Improving right upper lobe collapse. Stable position of endotracheal and nasogastric tubes.
--- NOTE | 2018-02-22 08:30 | PN ---
DATE: 02/21/2018 CRITICAL CARE PROGRESS NOTE LOCATION: The patient in ICU, bed 430. TIME SPENT: 45 minutes. The patient is seen and evaluated at the bedside. Past medical, surgical, family and social history reviewed as noted in the chart on admission. SUBJECTIVE: A 47-year-old male, with history of schizophrenia, substance abuse, and asthma, admitted with respiratory failure, intubated, now on mechanical ventilation, sedated on Precedex. Overnight telemetry sinus rhythm, normotensive, afebrile, agitated at times. PHYSICAL EXAMINATION: CURRENT VITAL SIGNS: Temperature _98.2, heart rate 102 to 108 and regular, blood pressure 141-165/80-92, saturation 96% on AC/PRVC rate of 18, set tidal volume of 500, FiO2 60%, observed rate 27, exhaled tidal volume of 510, minute ventilation 12.3 liters, peak airway pressure of 13, end tidal CO2 of 30. HEENT: Pupils are reactive 2-3 mm. Conjunctivae pink. Sclerae white. NECK: Supple. Endotracheal tube in place, minimal secretions, orogastric tube in place. CHEST: Bilateral breath sounds. Diminished in intensity. Clear to auscultation anteriorly and laterally. HEART: Rhythm regular. S1 and S2 rapid. No S3, S4 gallop. No audible murmur. ABDOMEN: Bowel sounds are present. Soft. Liver and spleen not palpable. Bladder not distended. EXTREMITIES: Without clubbing or cyanosis. NEUROLOGIC: Sedated on Precedex and Versed. CURRENT MEDICATIONS: Include albuterol/Atrovent inhalation 3 mL every 4 hours, Precedex drip at 25.8 2 mL per hour, Lovenox 40 subcutaneous daily, Ativan 2 mg every 4 hours p.r.n. for agitation, Solu-Medrol 40 mg IV every 6 hours, Reglan 10 mg IV every 6 hours p.r.n. for nausea and vomiting, midazolam drip at 3 mg per hour, banana bag with multivitamin, thiamine, folic acid at 50 mL per hour, Protonix 40 IV daily, Zosyn 3.375 g IV every 6 hours, and Kayexalate 30 g p.o. every 8 hours. LABORATORY DATA: WBC 14.1, hemoglobin 12, hematocrit 37.3, and platelet count 197,000. ABG; pH of 7.43, pCO2 of 47, pO2 of 87, and saturation 99.1 on AC 18, 500, 60% with PEEP of 5. SMA-7; sodium 144, potassium 5.8, chloride 105, CO2 25, BUN 20, creatinine 0.8, random glucose 143, calcium 8.9, and total CK 189. Urinalysis negative. Toxicology screen positive for opiates, phencyclidine, and cocaine. Nasal smear MRSA negative. Blood culture, no growth reported. Chest x-ray, endotracheal tube above the phil, consolidation of right upper lobe. No pleural effusion or pneumothorax. IMPRESSION AND PLAN: 1. Neurologic: Admitted with altered mental status secondary to toxic metabolic encephalopathy, history of schizophrenia and substance abuse, multiple with alcohol, phencyclidine and cocaine. 2. Pulmonary: Respiratory failure with hypoxemia, right upper lobe consolidation, likely secondary to mucus plug, chronic smoker with nicotine dependence. 3. Cardiac: Tachycardia and systolic hypertension, probably underlying cocaine/substance abuse withdrawal. 4. Leukocytosis, probably secondary to aspiration pneumonia. Continue bronchodilator. Continue Zosyn. Pulmonary consult evaluation. 5. Renal: Hyperkalemia and history of cocaine abuse. CPK trending down. Continue IV hydration. 6. Gastrointestinal: We will start OGT feeding with Nepro as suggested by the dietary consult. Maintain blood sugar lless than 180. Avoid hypoglycemia. 7. Psychiatric: History of schizophrenia. We will request psychiatric evaluation once the patient is extubated. Keep head of bed 30 degrees up. 8. Deep venous thrombosis prophylaxis. Gastrointestinal prophylaxis. Continue Precedex for withdrawal and to facilitate mechanical ventilation. Ativan as needed. Olvin Ba MD [email or web address]
--- NOTE | 2018-02-22 09:29 | CP.CCUPN ---
CCU Subjective - Physician Review Subjective (Free Text): 02/22/18 The patient was Seen/interviewed and examined by me at the bedside during ICU round, Events reviewed Patient sedated, orally intubated, on ventilator, on PRVC Afebrile Bradycardia, Weaning off Precedex Started on fentanyl drip today for possible Opiods withdrawal CCU Objective - Vital Signs / Intake & Output Vital Signs (Last 4 hours): Vital Signs Temp Pulse Resp BP Pulse Ox 02/22/18 08:00 99.5 F 76 22 168/93 H 99 02/22/18 07:00 53 L 20 169/93 H 100 02/22/18 06:00 53 L 22 178/98 H 100 Intake and Output (Last 8hrs): Intake & Output 02/21/18 02/22/18 02/22/18 22:59 06:59 14:59 Intake Total 720 500 128 Output Total 1400 700 Balance -680 -200 128 Intake: IV 372 500 128 Intake, Piggyback 100 Tube Feeding 48 Free Water Flush 200 Output: Gastric Amount 100 Stomach 100 Urine 1300 700 Urethral (Soares) 1300 700 - Physical Exam Head: Positive for: Atraumatic, Normocephalic Pupils: Positive for: PERRL Conjunctiva: Positive for: Normal Mouth: Positive for: Moist Mucous Membranes Nose (Internal): Positive for: Normal Inspection Neck: Positive for: Normal Range of Motion Respiratory/Chest: Positive for: Wheezes Cardiovascular: Positive for: Regular Rate and Rhythm Abdomen: Positive for: Normal Bowel Sounds Upper Extremity: Positive for: Normal Inspection Lower Extremity: Positive for: Normal Inspection Neurological: Positive for: Other (on ventilator, sedated) Psychiatric: Positive for: Other (on ventilator, sedated) - Medications Active Medications: Active Medications Generic Name Dose Route Start Last Admin Trade Name Freq PRN Reason Stop Dose Admin Albuterol/Ipratropium 3 ml 02/19/18 08:00 02/22/18 08:01 Duoneb 3 Mg/0.5 Mg (3 Ml) Ud INH 3 ml RQ4 RODRIGO Administration Piperacillin Sod/Tazobactam 100 mls @ 100 mls/hr 02/21/18 16:00 02/22/18 05: 00 Sod 3.375 gm/ Sodium Chloride IVPB 100 mls/hr Q6 RODRIGO Administration Protocol Dexmedetomidine HCl 400 mcg/ 100 mls @ 25.82 mls/hr 02/21/18 10:41 02/22/18 07:00 Sodium Chloride IV 0 mcg/kg/hr .Q3H53M RODRIGO 0 mls/hr Protocol Titration 1.1 MCG/KG/HR Lorazepam 2 mg 02/20/18 06:24 02/21/18 04:36 Ativan IM 2 mg Q4 PRN Administration Agitation Methylprednisolone 40 mg 02/19/18 10:00 02/22/18 05:05 Solu-Medrol IVP 40 mg Q6 RODRIGO Administration Metoclopramide HCl 10 mg 02/19/18 09:51 Reglan IVP Q6H PRN Nausea/Vomiting Nicotine 1 patch 02/21/18 12:15 02/22/18 08:14 Nicoderm Cq TD 1 patch DAILY RODRIGO Administration Pantoprazole Sodium 40 mg 02/20/18 09:00 02/22/18 08:19 Protonix Inj IVP 40 mg DAILY RODRIGO Administration Sodium Polystyrene Sulfonate 30 gm 02/21/18 07:45 02/21/18 23:00 Kayexalate Susp PO 30 gm Q8H RODRIGO Administration - Patient Studies Lab Studies: Microbiology Studies 02/19/18 08:20 Blood Culture - Preliminary Blood-Venous NO GROWTH AFTER 3 DAYS 02/19/18 08:00 Blood Culture - Preliminary Blood-Venous NO GROWTH AFTER 3 DAYS Lab Studies 02/22/18 02/22/18 02/22/18 Range/Units 05:33 04:20 04:20 WBC 11.8 H (4.8-10.8) K/uL RBC 4.11 L (4.40-5.90) Mil/uL Hgb 12.5 (12.0-18.0) g/dL Hct 38.5 (35.0-51.0) % MCV 93.7 (80.0-94.0) fl MCH 30.4 (27.0-31.0) pg MCHC 32.4 L (33.0-37.0) g/dL RDW 13.4 (11.5-14.5) % Plt Count 214 (130-400) K/uL pCO2 45 (35-45) mm/Hg pO2 147 H (80-100) mm/Hg HCO3 30.5 H (21-28) mmol/L ABG pH 7.46 H (7.35-7.45) ABG Total CO2 33.4 H (22-28) mmol/L ABG O2 Saturation 100.2 H (95-98) % ABG O2 Content 17.2 (15-23) ML/dL ABG Base Excess 7.2 H (-2.0-3.0) mmol/L ABG Hemoglobin 12.4 (11.7-17.4) g/dL ABG Carboxyhemoglobin 1.8 H (0.5-1.5) % POC ABG HHb (Measured) -0.2 L (0.0-5.0) % ABG Methemoglobin 1.4 (0.0-3.0) % ABG O2 Capacity 17.2 (16-24) mL/dL Jam Test Yes A-a O2 Difference 225.0 mm/Hg Hgb O2 Saturation 97.0 (95.0-98.0) % Vent Mode A/c Mechanical Rate 18 FiO2 60.0 % Tidal Volume 500 PEEP 5 Sodium 142 (132-148) mmol/l Potassium 4.6 (3.6-5.0) MMOL/L Chloride 103 (98-107) mmol/L Carbon Dioxide 30 (22-30) mmol/L Anion Gap 14 (10-20) BUN 19 (9-20) mg/dl Creatinine 0.8 (0.8-1.5) mg/dl Est GFR ( Amer) > 60 Est GFR (Non-Af Amer) > 60 Random Glucose 164 H (75-110) mg/dL Calcium 9.1 (8.4-10.2) mg/dL Phosphorus (2.5-4.5) mg/dl Magnesium (1.6-2.3) MG/DL Total Creatine Kinase (55-170) U/L 02/21/18 02/21/18 Range/Units 18:10 10:59 WBC (4.8-10.8) K/uL RBC (4.40-5.90) Mil/uL Hgb (12.0-18.0) g/dL Hct (35.0-51.0) % MCV (80.0-94.0) fl MCH (27.0-31.0) pg MCHC (33.0-37.0) g/dL RDW (11.5-14.5) % Plt Count (130-400) K/uL pCO2 (35-45) mm/Hg pO2 (80-100) mm/Hg HCO3 (21-28) mmol/L ABG pH (7.35-7.45) ABG Total CO2 (22-28) mmol/L ABG O2 Saturation (95-98) % ABG O2 Content (15-23) ML/dL ABG Base Excess (-2.0-3.0) mmol/L ABG Hemoglobin (11.7-17.4) g/dL ABG Carboxyhemoglobin (0.5-1.5) % POC ABG HHb (Measured) (0.0-5.0) % ABG Methemoglobin (0.0-3.0) % ABG O2 Capacity (16-24) mL/dL Jam Test A-a O2 Difference mm/Hg Hgb O2 Saturation (95.0-98.0) % Vent Mode Mechanical Rate FiO2 % Tidal Volume PEEP Sodium 144 (132-148) mmol/l Potassium 4.3 (3.6-5.0) MMOL/L Chloride 104 (98-107) mmol/L Carbon Dioxide 30 (22-30) mmol/L Anion Gap 14 (10-20) BUN 18 (9-20) mg/dl Creatinine 0.7 L (0.8-1.5) mg/dl Est GFR ( Amer) > 60 Est GFR (Non-Af Amer) > 60 Random Glucose 176 H (75-110) mg/dL Calcium 8.9 (8.4-10.2) mg/dL Phosphorus 2.9 (2.5-4.5) mg/dl Magnesium 2.2 (1.6-2.3) MG/DL Total Creatine Kinase 189 H (55-170) U/L Laboratory Results - last 24 hr 02/21/18 02/21/18 02/22/18 10:59 18:10 04:20 WBC 11.8 H RBC 4.11 L Hgb 12.5 Hct 38.5 MCV 93.7 MCH 30.4 MCHC 32.4 L RDW 13.4 Plt Count 214 pCO2 pO2 HCO3 ABG pH ABG Total CO2 ABG O2 Saturation ABG O2 Content ABG Base Excess ABG Hemoglobin ABG Carboxyhemoglobin POC ABG HHb (Measured) ABG Methemoglobin ABG O2 Capacity Jam Test A-a O2 Difference Hgb O2 Saturation Vent Mode Mechanical Rate FiO2 Tidal Volume PEEP Sodium 144 Potassium 4.3 Chloride 104 Carbon Dioxide 30 Anion Gap 14 BUN 18 Creatinine 0.7 L Est GFR ( Amer) > 60 Est GFR (Non-Af Amer) > 60 Random Glucose 176 H Calcium 8.9 Phosphorus 2.9 Magnesium 2.2 Total Creatine Kinase 189 H 02/22/18 02/22/18 04:20 05:33 WBC RBC Hgb Hct MCV MCH MCHC RDW Plt Count pCO2 45 pO2 147 H HCO3 30.5 H ABG pH 7.46 H ABG Total CO2 33.4 H ABG O2 Saturation 100.2 H ABG O2 Content 17.2 ABG Base Excess 7.2 H ABG Hemoglobin 12.4 ABG Carboxyhemoglobin 1.8 H POC ABG HHb (Measured) -0.2 L ABG Methemoglobin 1.4 ABG O2 Capacity 17.2 Jam Test Yes A-a O2 Difference 225.0 Hgb O2 Saturation 97.0 Vent Mode A/c Mechanical Rate 18 FiO2 60.0 Tidal Volume 500 PEEP 5 Sodium 142 Potassium 4.6 Chloride 103 Carbon Dioxide 30 Anion Gap 14 BUN 19 Creatinine 0.8 Est GFR ( Amer) > 60 Est GFR (Non-Af Amer) > 60 Random Glucose 164 H Calcium 9.1 Phosphorus Magnesium Total Creatine Kinase Fingerstick Blood Sugar Results: 154 Review of Systems - Review of Systems Systems not reviewed;Unavailable: Intubated Critical Care Progress Note - Ventilator Checklist Head of Bed 30 Degrees: Yes Daily Sedation Vacation: Yes Daily Assessment of Readiness to Wean: Yes Daily Spontaneous Breathing Trial: Yes PUD Prophalyxis: Yes DVT Prophylaxis: Yes Oral Care with Chlorhexidine Gluconate {CHG}: Yes - Extremities/Vascular Does the Patient have a Central Venous Catheter?: No Does the Patient need a Central Venous Catheter?: No Does the Patient have a Soares Catheter?: No Does the Patient need a Soares Catheter?: No - Nutrition Nutrition: Nutrition Category Date Time Status NPO Diet [DIET] Diets 02/19/18 Breakfast Active Assessment/Plan (1) Asthma exacerbation Current Visit: Yes Status: Acute Priority: High Comment: Continue Solu-Medrol 40 mg IVP Q6 Continue Albuterol/Ipratropium (Duoneb) INH RQ4 (2) Collapse of right lung Current Visit: Yes Status: Acute Priority: High Comment: Pulmonary consult appretiated Scheduled for chest CT scan today (3) Respiratory failure Current Visit: Yes Status: Acute Priority: High Comment: Continue IV Zosyn 3.375 gm IVPB Q6 Continue Solu-Medrol 40 mg IVP Q6 Continue Albuterol/Ipratropium (Duoneb) INH RQ4 (4) Polysubstance abuse Current Visit: Yes Status: Acute Priority: High (5) Nicotine dependence Current Visit: Yes Status: Acute Priority: Medium Comment: Nicotine (Nicoderm Cq) 1 patch TD DAILY (6) Schizophrenia Current Visit: Yes Status: Chronic Priority: Medium
[2018-02-22] MEDS: Sod Polystyrene Sulf 15 gm/60 ml Susp PO SCH ×2 (09:40→17:25)
[2018-02-22] MEDS: Fentanyl Citrate 2,500 MCG in Dextrose 5% In Water 200 ML IV SCH (12:24)
--- NOTE | 2018-02-22 12:27 | CP.PCM.PN ---
Subjective - Date & Time of Evaluation Date of Evaluation: 02/22/18 Time of Evaluation: 12:00 - Subjective Subjective: Pt remains intubated on Vent 18/500/5/60% accdg to RN , pt was agitated earlier - now on Precedex drip and Versed drip Apt present , pt is calm, sedated Afebrile Objective - Vital Signs/Intake and Output Vital Signs (last 24 hours): Temp Pulse Resp BP Pulse Ox 99.0 F 71 24 155/88 H 100 02/22/18 12:00 02/22/18 12:00 02/22/18 12:00 02/22/18 12:00 02/22/18 12:00 Intake and Output: 02/22/18 02/22/18 06:59 18:59 Intake Total 575 201 Output Total 700 Balance -125 201 - Medications Medications: Current Medications Albuterol/Ipratropium (Duoneb 3 Mg/0.5 Mg (3 Ml) Ud) 3 ml INH RQ4 RODRIGO Last Admin: 02/22/18 11:32 Dose: 3 ml Piperacillin Sod/Tazobactam (Sod 3.375 gm/ Sodium Chloride) 100 mls @ 100 mls/ hr IVPB Q6 RODIRGO PRN Reason: Protocol Last Admin: 02/22/18 10:00 Dose: 100 mls/hr Dexmedetomidine HCl 400 mcg/ (Sodium Chloride) 100 mls @ 25.82 mls/hr IV .Q3H53M RODRIGO; 1.1 MCG/KG/HR PRN Reason: Protocol Last Admin: 02/22/18 09:33 Dose: 1.3 mcg/kg/hr, 30.51 mls/hr Fentanyl Citrate 2,500 mcg/ (Dextrose) 250 mls @ 9.38 mls/hr IV .Q24H RODRIGO; 1 MCG/KG/HR PRN Reason: Protocol Last Admin: 02/22/18 12:24 Dose: 1 mcg/kg/hr, 9.38 mls/hr Lorazepam (Ativan) 2 mg IM Q4 PRN PRN Reason: Agitation Last Admin: 02/21/18 04:36 Dose: 2 mg Methylprednisolone (Solu-Medrol) 40 mg IVP Q6 RODRIGO Last Admin: 02/22/18 10:00 Dose: 40 mg Metoclopramide HCl (Reglan) 10 mg IVP Q6H PRN PRN Reason: Nausea/Vomiting Nicotine (Nicoderm Cq) 1 patch TD DAILY [facility] Last Admin: 02/22/18 08:14 Dose: 1 patch Pantoprazole Sodium (Protonix Inj) 40 mg IVP DAILY [facility] Last Admin: 02/22/18 08:19 Dose: 40 mg Sodium Polystyrene Sulfonate (Kayexalate Susp) 30 gm PO Q8H [facility] Last Admin: 02/22/18 09:40 Dose: Not Given - Labs Labs: 02/22/18 04:20 02/22/18 04:20 - Constitutional Appears: Non-toxic, No Acute Distress - Head Exam Head Exam: NORMAL INSPECTION, NORMOCEPHALIC - Eye Exam Eye Exam: Normal appearance, PERRL - ENT Exam ENT Exam: Mucous Membranes Dry, Normal External Ear Exam - Neck Exam Neck Exam: absent: Meningismus - Respiratory Exam Respiratory Exam: Rales, Rhonchi, NORMAL BREATHING PATTERN. absent: Wheezes, Respiratory Distress - Cardiovascular Exam Cardiovascular Exam: REGULAR RHYTHM, +S1, +S2 - GI/Abdominal Exam GI & Abdominal Exam: Soft, Normal Bowel Sounds. absent: Tenderness - Extremities Exam Extremities Exam: Normal Capillary Refill. absent: Pedal Edema - Neurological Exam Additional comments: Sedated - Skin Skin Exam: Dry, Normal Color, Warm Assessment and Plan - Assessment and Plan (Free Text) Assessment: 47 years old male with hx of Asthma, substance abuse and Schizophrenia who comes with one day of worsening SOB, associated with generalized chest pain. He came into the ED talking but became obtunded , desaturated and was intubated . He admitted to ICU for further management. 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 1. Acute Respiratory Failure with Acidosis sec to Drug Overdose - Pt was intubated on Mech Vent -Duoneb RTC - Pulmonary consult 2. RUL Collapse/Atelectasis prob due to Mucus Plugging - discussed case with Dr Patricio- rec doing CT of Chest and starting Mucomyst - Chest Physiotherapy - Suctioning - empiricall started on IV Zosyn 3. Acute Asthma Exacerbation -decrease Solu-medrol 40mg Q8 - Duoneb Q4H - Albuterol Q2h PRN 4. Polysubstance Abuse/Drug Overdose - Pt admitted to Heroin Use - Drug Screen : + for Opiates, Cocaine , PCP - Pt on Precedex drip - would help with withdrawal sxs. 5. Hyperkalemia, resolved 6. Hyperglycemia likely due to steroids - [id number] #. DVT prophylaxis with Lovenox #. Code Status: Full
--- NOTE | 2018-02-22 14:25 | CP.PCM.PN ---
Subjective - Date & Time of Evaluation Date of Evaluation: 02/22/18 Time of Evaluation: 11:40 - Subjective Subjective: F/U Respiratory failure. Pt intubated, open eyes to tactile stimuli, answering with his head yes or no to questions. Objective - Vital Signs/Intake and Output Vital Signs (last 24 hours): Temp Pulse Resp BP Pulse Ox 99.0 F 77 20 156/92 H 100 02/22/18 12:00 02/22/18 13:00 02/22/18 13:00 02/22/18 13:00 02/22/18 13:00 Intake and Output: 02/22/18 02/22/18 06:59 18:59 Intake Total 575 311 Output Total 700 Balance -125 311 - Medications Medications: Current Medications Acetylcysteine (Mucomyst 10% 4ml) 4 ml IH RQID RODRIGO Albuterol/Ipratropium (Duoneb 3 Mg/0.5 Mg (3 Ml) Ud) 3 ml INH RQ4 RODRIGO Last Admin: 02/22/18 11:32 Dose: 3 ml Piperacillin Sod/Tazobactam (Sod 3.375 gm/ Sodium Chloride) 100 mls @ 100 mls/ hr IVPB Q6 RODRIGO PRN Reason: Protocol Last Admin: 02/22/18 10:00 Dose: 100 mls/hr Dexmedetomidine HCl 400 mcg/ (Sodium Chloride) 100 mls @ 25.82 mls/hr IV .Q3H53M RODRIGO; 1.1 MCG/KG/HR PRN Reason: Protocol Last Titration: 02/22/18 12:40 Dose: Infused Fentanyl Citrate 2,500 mcg/ (Dextrose) 250 mls @ 9.38 mls/hr IV .Q24H RODRIGO; 1 MCG/KG/HR PRN Reason: Protocol Last Titration: 02/22/18 12:35 Dose: 1.5 mcg/kg/hr, 14.08 mls/hr Lorazepam (Ativan) 2 mg IM Q4 PRN PRN Reason: Agitation Last Admin: 02/21/18 04:36 Dose: 2 mg Methylprednisolone (Solu-Medrol) 40 mg IVP Q6 RODRIGO Last Admin: 02/22/18 10:00 Dose: 40 mg Metoclopramide HCl (Reglan) 10 mg IVP Q6H PRN PRN Reason: Nausea/Vomiting Nicotine (Nicoderm Cq) 1 patch TD DAILY RODRIGO Last Admin: 02/22/18 08:14 Dose: 1 patch Pantoprazole Sodium (Protonix Inj) 40 mg IVP DAILY [facility] Last Admin: 02/22/18 08:19 Dose: 40 mg Sodium Polystyrene Sulfonate (Kayexalate Susp) 30 gm PO Q8H [facility] Last Admin: 02/22/18 09:40 Dose: Not Given - Labs Labs: 02/22/18 04:20 02/22/18 04:20 - Constitutional Appears: Other (Intubated.) - Head Exam Head Exam: NORMAL INSPECTION - Eye Exam Eye Exam: PERRL - ENT Exam Additional comments: Intubated, OGT - Neck Exam Neck Exam: Normal Inspection - Respiratory Exam Respiratory Exam: Wheezes - Cardiovascular Exam Cardiovascular Exam: REGULAR RHYTHM - GI/Abdominal Exam GI & Abdominal Exam: Soft, Normal Bowel Sounds - Extremities Exam Extremities Exam: Normal Inspection - Back Exam Back Exam: NORMAL INSPECTION - Neurological Exam Neurological Exam: Awake, Reflexes Normal Additional comments: Intubated. - Skin Skin Exam: Warm Assessment and Plan (1) Respiratory failure Status: Resolved (2) Asthma exacerbation Status: Acute (3) Collapse of right lung Status: Resolved - Assessment and Plan (Free Text) Plan: Continue Zosyn, Duoneb, Solu-Medrol, Mucomyst , Precedex DC for Bradycardia , on Fentanyl dripa , continue rest of Tx.
[2018-02-22] MEDS: Acetylcysteine 10% 4 ML IH SCH ×2 (15:41→19:51)
--- NOTE | 2018-02-22 17:12 | CT ---
PROCEDURE: CT Chest without contrast HISTORY: Right upper lobe atelectasis. COMPARISON: 01/07/2017 CT thorax 02/22/2018 single-view chest TECHNIQUE: Contiguous axial images were obtained through the chest without intravenous contrast enhancement. Sagittal and coronal reconstructions were performed. Radiation dose (DLP): 734.65 mGy-cm. This CT exam was performed using one or more of the following dose reduction techniques: Automated exposure control, adjustment of the mA and/or kV according to patient size, and/or use of iterative reconstruction technique. FINDINGS: LUNGS: Confirmation of right upper lobe atelectasis with volume loss. This appears be related to mucous plugging common debris within the left upper lobe bronchus. In addition, dependent atelectasis at the lung bases, subsegmental right greater than left. Increased interstitial markings compatible with lower airways disease. No discrete pulmonary infiltrates. MEDIASTINUM: Unremarkable thoracic aorta. No aneurysm. Normal sized heart. Main pulmonary artery unremarkable. No vascular congestion. No lymphadenopathy. PLEURA: No pleural fluid. No pneumothorax. BONES: No fracture. No destructive lesion. UPPER ABDOMEN: Grossly unremarkable. OTHER FINDINGS: Satisfactory position of endotracheal tube. Nasogastric tube courses through the esophagus, the tip is in a decompressed stomach. IMPRESSION: Postobstructive pneumonitis/ atelectasis likely related to mucous plugging at the segmental level of the tracheobronchial tree. Dependent atelectasis at the lung bases, subsegmental.
[2018-02-22] MEDS: Midazolam 50 MG in Dextrose 5% In Water 50 ML IV ONE (18:32)
[2018-02-23] MEDS: Fentanyl Citrate 2,500 MCG in Dextrose 5% In Water 200 ML IV SCH (00:15)
[2018-02-23] MEDS: MethylPREDNISolone 40 mg Vial IVP SCH ×2 (01:52→10:10)
[2018-02-23] MEDS: Piperacillin/Tazobact 3.375 GM in Sodium Chloride 0.9% 100 ML IVPB SCH ×4 (03:30→22:14)
[2018-02-23] MEDS: Midazolam 50 MG in Dextrose 5% In Water 50 ML IV ONE (04:23)
[2018-02-23] MEDS: Albuterol-Ipratrop 3 mg / 0.5 (3 ml) UD INH SCH ×6 (05:28→23:28)
[2018-02-23 05:37] LABS: ABG ALLEN TEST YES; ARTERIAL BLOOD GAS HCO3 31.3 mmol/L (21-28); ARTERIAL BLOOD GAS HEMOGLOBIN 11.6 g/dL (11.7-17.4); ARTERIAL BLOOD GAS O2 CAPACITY 15.8 mL/dL (16-24); ARTERIAL BLOOD GAS O2 CONTENT 15.4 ML/dL (15-23); ARTERIAL BLOOD GAS O2 SAT 97.3 % (95-98); ARTERIAL BLOOD GAS PCO2 61 mm/Hg (35-45); ARTERIAL BLOOD GAS PH 7.37 (7.35-7.45); ARTERIAL BLOOD GAS PO2 74 mm/Hg (80-100); ARTERIAL BLOOD GAS TCO2 37.2 mmol/L (22-28)
[2018-02-23 05:46] LABS: BASO % 0.3 % (0.0-2.0); HEMOGLOBIN 11.7 g/dL (12.0-18.0); LYMPH # 0.4 K/uL (1.0-4.3); LYMPH % 4.1 % (20.0-40.0); MEAN CELL VOLUME 93.3 fl (80.0-94.0); MEAN CORPUSCULAR HEMOGLOBIN 30.7 pg (27.0-31.0); MEAN CORPUSCULAR HGB CONC 32.9 g/dL (33.0-37.0); MEAN PLATELET VOLUME 8.9 fl (7.2-11.7); MONO # 0.7 K/uL (0.0-0.8); MONO % 7.5 % (0.0-10.0); NEUT # 7.7 K/uL (1.8-7.0); NEUT % 88.1 % (50.0-75.0); PLATELET COUNT 222 K/uL (130-400); RBC 3.82 Mil/uL (4.40-5.90); RED CELL DISTRIBUTION WIDTH 13.3 % (11.5-14.5); WHITE BLOOD COUNT 8.7 K/uL (4.8-10.8)
[2018-02-23 06:23] LABS: ALBUMIN 3.1 g/dL (3.5-5.0); ALT/SGPT 35 U/L (21-72); AST/SGOT 21 U/L (17-59); BLOOD UREA NITROGEN 29 mg/dl (9-20); CALCIUM 8.7 mg/dL (8.4-10.2); GFR AFRICAN-AMERICAN > 60; GFR NON-AFRICAN AMERICAN > 60
[2018-02-23 07:42] LABS: TOTAL CELLS COUNTED 100
[2018-02-23 07:43] LABS: ANISOCYTOSIS SLIGHT; LYMPHOCYTE 4 % (20-50); MONOCYTE 6 % (0-10); NEUTROPHIL 90 % (42-75); PLATELET ESTIMATE NORMAL (NORMAL); TOXIC GRANULATION PRESENT
[2018-02-23] MEDS: Acetylcysteine 10% 4 ML IH SCH ×4 (08:07→19:59)
--- NOTE | 2018-02-23 08:20 | CP.PCM.PN ---
Subjective - Date & Time of Evaluation Date of Evaluation: 02/23/18 Time of Evaluation: 08:20 - Subjective Subjective: pt intubated, sedated ABG stable this am hd stable no apparent distress consider extubation, however cont to req 60% fio2 Objective - Vital Signs/Intake and Output Vital Signs (last 24 hours): Temp Pulse Resp BP Pulse Ox 98.3 F 75 18 102/68 99 02/23/18 08:00 02/23/18 08:00 02/23/18 08:00 02/23/18 08:00 02/23/18 08:00 Intake and Output: 02/23/18 02/23/18 06:59 18:59 Intake Total 760 60 Output Total 700 Balance 60 60 - Medications Medications: Current Medications Acetylcysteine (Mucomyst 10% 4ml) 4 ml IH RQID RODRIGO Last Admin: 02/23/18 08:07 Dose: 4 ml Albuterol/Ipratropium (Duoneb 3 Mg/0.5 Mg (3 Ml) Ud) 3 ml INH RQ4 RODRIGO Last Admin: 02/23/18 08:07 Dose: 3 ml Piperacillin Sod/Tazobactam (Sod 3.375 gm/ Sodium Chloride) 100 mls @ 100 mls/ hr IVPB Q6 RODRIGO PRN Reason: Protocol Last Admin: 02/23/18 03:30 Dose: 100 mls/hr Fentanyl Citrate 2,500 mcg/ (Dextrose) 250 mls @ 9.38 mls/hr IV .Q24H RODRIGO; 1 MCG/KG/HR PRN Reason: Protocol Last Admin: 02/23/18 00:15 Dose: 2.5 mcg/kg/hr, 23.47 mls/hr Midazolam HCl 50 mg/ Dextrose 100 mls @ 4 mls/hr IV .Q24H ONE; 2 MG/HR PRN Reason: Protocol Stop: 02/23/18 16:58 Last Admin: 02/23/18 04:23 Dose: 3 mg/hr, 6 mls/hr Lorazepam (Ativan) 2 mg IM Q4 PRN PRN Reason: Agitation Last Admin: 02/22/18 21:46 Dose: 2 mg Methylprednisolone (Solu-Medrol) 40 mg IVP Q8 RODRIGO Last Admin: 02/23/18 01:52 Dose: 40 mg Metoclopramide HCl (Reglan) 10 mg IVP Q6H PRN PRN Reason: Nausea/Vomiting Nicotine (Nicoderm Cq) 1 patch TD DAILY [facility] Last Admin: 02/22/18 08:14 Dose: 1 patch Pantoprazole Sodium (Protonix Inj) 40 mg IVP DAILY [facility] Last Admin: 02/22/18 08:19 Dose: 40 mg Pneumococcal Polyvalent Vaccine (Pneumovax 23 Vaccine) 0.5 ml IM .ONCE ONE Stop: 02/23/18 09:01 - Labs Labs: 02/23/18 04:25 02/23/18 04:25 - Constitutional Appears: Non-toxic, No Acute Distress - Head Exam Head Exam: ATRAUMATIC, NORMOCEPHALIC - Eye Exam Eye Exam: EOMI, Normal appearance - ENT Exam ENT Exam: Mucous Membranes Moist Additional comments: intubated - Respiratory Exam Respiratory Exam: Clear to Ausculation Bilateral, NORMAL BREATHING PATTERN - Cardiovascular Exam Cardiovascular Exam: RRR, +S1, +S2 - GI/Abdominal Exam GI & Abdominal Exam: Soft, Normal Bowel Sounds - Extremities Exam Extremities Exam: Normal Capillary Refill. absent: Joint Swelling - Back Exam Back Exam: NORMAL INSPECTION. absent: rash noted - Neurological Exam Neurological Exam: Reflexes Normal Additional comments: intubated, sedated - Psychiatric Exam Psychiatric exam: absent: Normal Affect, Normal Mood Additional comments: intubated, sedated - Skin Skin Exam: Dry, Warm Assessment and Plan - Assessment and Plan (Free Text) Plan: 47 years old male with hx of Asthma, substance abuse and Schizophrenia who comes with one day of worsening SOB, associated with generalized chest pain. He came into the ED talking but became obtunded , desaturated and was intubated . He admitted to ICU for further management. 02/21: low grade fever 100.2, WBC 14k, tachycardic, director specialty initiated Zosyn for empiric coverage. 1. Acute Respiratory Failure with Acidosis sec to Drug Overdose - Pt was intubated on Mech Vent, possibly extubate patient today. Discussed with intensive care team. - Can RTC - Pulmonary consult 2. RUL Collapse/Atelectasis prob due to Mucus Plugging - discussed case with Dr Patricio- rec doing CT of Chest and starting Mucomyst - Chest Physiotherapy - Suctioning - empiricall started on IV Zosyn 3. Acute Asthma Exacerbation -decrease Solu-medrol 40mg Q8 - Duoneb Q4H - Albuterol Q2h PRN 4. Polysubstance Abuse/Drug Overdose - Pt admitted to Heroin Use - Drug Screen : + for Opiates, Cocaine , PCP - Pt on Precedex drip - would help with withdrawal sxs. 5. Hyperkalemia, resolved 6. Hyperglycemia likely due to steroids - [id number] #. DVT prophylaxis with Lovenox #. Code Status: Full
--- NOTE | 2018-02-23 08:44 | RAD ---
HISTORY: Reevaluate ; Intubated COMPARISON: Portable chest 02/22/2018. FINDINGS: Endotracheal tube is unchanged in position with nasogastric tube coiled at the left upper quadrant abdomen. LUNGS: No active pulmonary disease. PLEURA: No significant pleural effusion identified, no pneumothorax apparent. CARDIOVASCULAR: Normal. OSSEOUS STRUCTURES: No significant abnormalities. VISUALIZED UPPER ABDOMEN: Normal. OTHER FINDINGS: None. IMPRESSION: No interval acute cardiopulmonary disease appreciated.
[2018-02-23] MEDS ORDERED: Pneumococcal 23-Valent Vaccine IM ONE (09:00)
--- NOTE | 2018-02-23 10:07 | CP.CCUPN ---
<Yonis Garduno - Last Filed: 02/23/18 12:43> CCU Subjective - Physician Review Events Since Last Encounter (Free Text): pt seen and examined at bedside. No acute events overnight. Intubated, but awake and responding to commands, active, sitting upright, and writing questions and demands on clipboard. Afebrile, stable vital signs. CCU Objective - Vital Signs / Intake & Output Vital Signs (Last 4 hours): Vital Signs Temp Pulse Resp BP Pulse Ox 02/23/18 08:00 98.3 F 75 18 102/68 99 02/23/18 07:00 88 18 102/67 98 Intake and Output (Last 8hrs): Intake & Output 02/22/18 02/23/18 02/23/18 22:59 06:59 14:59 Intake Total 639 410 60 Output Total 900 500 Balance -261 -90 60 Intake: IV 489 410 60 Intake, Piggyback 100 Free Water Flush 50 Output: Gastric Amount 0 Stomach 0 Urine 900 500 Urethral (Soares) 900 500 - Physical Exam Head: Positive for: Atraumatic, Normocephalic Pupils: Positive for: PERRL Extroacular Muscles: Positive for: EOMI Conjunctiva: Positive for: Normal Mouth: Positive for: Moist Mucous Membranes Nose (Internal): Positive for: Normal Inspection Neck: Positive for: Normal Range of Motion Respiratory/Chest: Positive for: Wheezes Cardiovascular: Positive for: Regular Rate and Rhythm Abdomen: Positive for: Normal Bowel Sounds Upper Extremity: Positive for: Normal Inspection Lower Extremity: Positive for: Normal Inspection Neurological: Positive for: GCS=15 (GCS 15T ), CN II-XII Intact Skin: Positive for: Warm, Dry Psychiatric: Positive for: Alert, Oriented x 3, Normal Insight - Medications Active Medications: Active Medications Generic Name Dose Route Start Last Admin Trade Name Freq PRN Reason Stop Dose Admin Acetylcysteine 4 ml 02/22/18 16:00 02/23/18 08:07 Mucomyst 10% 4ml IH 4 ml RQID RODRIGO Administration Albuterol/Ipratropium 3 ml 02/19/18 08:00 02/23/18 08:07 Duoneb 3 Mg/0.5 Mg (3 Ml) Ud INH 3 ml RQ4 RODRIGO Administration Piperacillin Sod/Tazobactam 100 mls @ 100 mls/hr 02/21/18 16:00 02/23/18 03: 30 Sod 3.375 gm/ Sodium Chloride IVPB 100 mls/hr Q6 RODRIGO Administration Protocol Midazolam HCl 50 mg/ Dextrose 100 mls @ 4 mls/hr 02/22/18 16:59 02/23/18 04: 23 IV 02/23/18 16:58 3 mg/hr .Q24H ONE 6 mls/hr Protocol Administration 2 MG/HR Lorazepam 2 mg 02/20/18 06:24 02/22/18 21:46 Ativan IM 2 mg Q4 PRN Administration Agitation Methylprednisolone 40 mg 02/23/18 01:00 02/23/18 01:52 Solu-Medrol IVP 40 mg Q8 RODRIGO Administration Metoclopramide HCl 10 mg 02/19/18 09:51 Reglan IVP Q6H PRN Nausea/Vomiting Nicotine 1 patch 02/21/18 12:15 02/22/18 08:14 Nicoderm Cq TD 1 patch DAILY RODRIGO Administration Pantoprazole Sodium 40 mg 02/20/18 09:00 02/22/18 08:19 Protonix Inj IVP 40 mg DAILY RODRIGO Administration - Patient Studies Lab Studies: Microbiology Studies 02/19/18 08:20 Blood Culture - Preliminary Blood-Venous NO GROWTH AFTER 4 DAYS 02/19/18 08:00 Blood Culture - Preliminary Blood-Venous NO GROWTH AFTER 4 DAYS Lab Studies 02/23/18 02/23/18 02/23/18 Range/Units 05:27 04:25 04:25 WBC 8.7 (4.8-10.8) K/uL RBC 3.82 L (4.40-5.90) Mil/uL Hgb 11.7 L (12.0-18.0) g/dL Hct 35.6 (35.0-51.0) % MCV 93.3 (80.0-94.0) fl MCH 30.7 (27.0-31.0) pg MCHC 32.9 L (33.0-37.0) g/dL RDW 13.3 (11.5-14.5) % Plt Count 222 (130-400) K/uL MPV 8.9 (7.2-11.7) fl Neut % (Auto) 88.1 H (50.0-75.0) % Lymph % (Auto) 4.1 L (20.0-40.0) % [place] % (Auto) 7.5 (0.0-10.0) % Eos % (Auto) 0.0 (0.0-4.0) % Baso % (Auto) 0.3 (0.0-2.0) % Neut # (Auto) 7.7 H (1.8-7.0) K/uL Lymph # (Auto) 0.4 L (1.0-4.3) K/uL [place] # (Auto) 0.7 (0.0-0.8) K/uL Eos # (Auto) 0.0 (0.0-0.7) K/uL Baso # (Auto) 0.0 (0.0-0.2) K/uL Neutrophils % (Manual) 90 H (42-75) % Lymphocytes % (Manual) 4 L (20-50) % Monocytes % (Manual) 6 (0-10) % Toxic Granulation Present Platelet Estimate Normal (NORMAL) Anisocytosis (manual) Slight pCO2 61 H (35-45) mm/Hg pO2 74 L (80-100) mm/Hg HCO3 31.3 H (21-28) mmol/L ABG pH 7.37 (7.35-7.45) ABG Total CO2 37.2 H (22-28) mmol/L ABG O2 Saturation 97.3 (95-98) % ABG O2 Content 15.4 (15-23) ML/dL ABG Base Excess 8.2 H (-2.0-3.0) mmol/L ABG Hemoglobin 11.6 L (11.7-17.4) g/dL ABG Carboxyhemoglobin 2.0 H (0.5-1.5) % POC ABG HHb (Measured) 2.6 (0.0-5.0) % ABG Methemoglobin 1.3 (0.0-3.0) % ABG O2 Capacity 15.8 L (16-24) mL/dL Jam Test Yes A-a O2 Difference 278.0 mm/Hg Hgb O2 Saturation 94.1 L (95.0-98.0) % Vent Mode A/c Mechanical Rate 18 FiO2 60.0 % Tidal Volume 500 PEEP 5 Sodium 143 (132-148) mmol/l Potassium 4.4 (3.6-5.0) MMOL/L Chloride 101 (98-107) mmol/L Carbon Dioxide 31 H (22-30) mmol/L Anion Gap 15 (10-20) BUN 29 H (9-20) mg/dl Creatinine 1.0 (0.8-1.5) mg/dl Est GFR ( Amer) > 60 Est GFR (Non-Af Amer) > 60 Random Glucose 140 H (75-110) mg/dL Hemoglobin A1c (4.2-6.5) % Calcium 8.7 (8.4-10.2) mg/dL Total Bilirubin 0.6 (0.2-1.3) mg/dl AST 21 (17-59) U/L ALT 35 (21-72) U/L Alkaline Phosphatase 49 (38-126) U/L Total Protein 6.3 (6.3-8.2) G/DL Albumin 3.1 L (3.5-5.0) g/dL Globulin 3.1 (2.2-3.9) gm/dL Albumin/Globulin Ratio 1.0 (1.0-2.1) / Range/Units 13:43 WBC (4.8-10.8) K/uL RBC (4.40-5.90) Mil/uL Hgb (12.0-18.0) g/dL Hct (35.0-51.0) % MCV (80.0-94.0) fl MCH (27.0-31.0) pg MCHC (33.0-37.0) g/dL RDW (11.5-14.5) % Plt Count (130-400) K/uL MPV (7.2-11.7) fl Neut % (Auto) (50.0-75.0) % Lymph % (Auto) (20.0-40.0) % [place] % (Auto) (0.0-10.0) % Eos % (Auto) (0.0-4.0) % Baso % (Auto) (0.0-2.0) % Neut # (Auto) (1.8-7.0) K/uL Lymph # (Auto) (1.0-4.3) K/uL [place] # (Auto) (0.0-0.8) K/uL Eos # (Auto) (0.0-0.7) K/uL Baso # (Auto) (0.0-0.2) K/uL Neutrophils % (Manual) (42-75) % Lymphocytes % (Manual) (20-50) % Monocytes % (Manual) (0-10) % Toxic Granulation Platelet Estimate (NORMAL) Anisocytosis (manual) pCO2 (35-45) mm/Hg pO2 (80-100) mm/Hg HCO3 (21-28) mmol/L ABG pH (7.35-7.45) ABG Total CO2 (22-28) mmol/L ABG O2 Saturation (95-98) % ABG O2 Content (15-23) ML/dL ABG Base Excess (-2.0-3.0) mmol/L ABG Hemoglobin (11.7-17.4) g/dL ABG Carboxyhemoglobin (0.5-1.5) % POC ABG HHb (Measured) (0.0-5.0) % ABG Methemoglobin (0.0-3.0) % ABG O2 Capacity (16-24) mL/dL Jam Test A-a O2 Difference mm/Hg Hgb O2 Saturation (95.0-98.0) % Vent Mode Mechanical Rate FiO2 % Tidal Volume PEEP Sodium (132-148) mmol/l Potassium (3.6-5.0) MMOL/L Chloride (98-107) mmol/L Carbon Dioxide (22-30) mmol/L Anion Gap (10-20) BUN (9-20) mg/dl Creatinine (0.8-1.5) mg/dl Est GFR ( Amer) Est GFR (Non-Af Amer) Random Glucose (75-110) mg/dL Hemoglobin A1c 5.0 (4.2-6.5) % Calcium (8.4-10.2) mg/dL Total Bilirubin (0.2-1.3) mg/dl AST (17-59) U/L ALT (21-72) U/L Alkaline Phosphatase (38-126) U/L Total Protein (6.3-8.2) G/DL Albumin (3.5-5.0) g/dL Globulin (2.2-3.9) gm/dL Albumin/Globulin Ratio (1.0-2.1) Laboratory Results - last 24 hr 02/19/18 02/23/18 02/23/18 13:43 04:25 04:25 WBC 8.7 RBC 3.82 L Hgb 11.7 L Hct 35.6 MCV 93.3 MCH 30.7 MCHC 32.9 L RDW 13.3 Plt Count 222 MPV 8.9 Neut % (Auto) 88.1 H Lymph % (Auto) 4.1 L [place] % (Auto) 7.5 Eos % (Auto) 0.0 Baso % (Auto) 0.3 Neut # (Auto) 7.7 H Lymph # (Auto) 0.4 L [place] # (Auto) 0.7 Eos # (Auto) 0.0 Baso # (Auto) 0.0 Neutrophils % (Manual) 90 H Lymphocytes % (Manual) 4 L Monocytes % (Manual) 6 Toxic Granulation Present Platelet Estimate Normal Anisocytosis (manual) Slight pCO2 pO2 HCO3 ABG pH ABG Total CO2 ABG O2 Saturation ABG O2 Content ABG Base Excess ABG Hemoglobin ABG Carboxyhemoglobin POC ABG HHb (Measured) ABG Methemoglobin ABG O2 Capacity Jam Test A-a O2 Difference Hgb O2 Saturation Vent Mode Mechanical Rate FiO2 Tidal Volume PEEP Sodium 143 Potassium 4.4 Chloride 101 Carbon Dioxide 31 H Anion Gap 15 BUN 29 H Creatinine 1.0 Est GFR ( Amer) > 60 Est GFR (Non-Af Amer) > 60 Random Glucose 140 H Hemoglobin A1c 5.0 Calcium 8.7 Total Bilirubin 0.6 AST 21 ALT 35 Alkaline Phosphatase 49 Total Protein 6.3 Albumin 3.1 L Globulin 3.1 Albumin/Globulin Ratio 1.0 02/23/18 05:27 WBC RBC Hgb Hct MCV MCH MCHC RDW Plt Count MPV Neut % (Auto) Lymph % (Auto) [place] % (Auto) Eos % (Auto) Baso % (Auto) Neut # (Auto) Lymph # (Auto) [place] # (Auto) Eos # (Auto) Baso # (Auto) Neutrophils % (Manual) Lymphocytes % (Manual) Monocytes % (Manual) Toxic Granulation Platelet Estimate Anisocytosis (manual) pCO2 61 H pO2 74 L HCO3 31.3 H ABG pH 7.37 ABG Total CO2 37.2 H ABG O2 Saturation 97.3 ABG O2 Content 15.4 ABG Base Excess 8.2 H ABG Hemoglobin 11.6 L ABG Carboxyhemoglobin 2.0 H POC ABG HHb (Measured) 2.6 ABG Methemoglobin 1.3 ABG O2 Capacity 15.8 L Jam Test Yes A-a O2 Difference 278.0 Hgb O2 Saturation 94.1 L Vent Mode A/c Mechanical Rate 18 FiO2 60.0 Tidal Volume 500 PEEP 5 Sodium Potassium Chloride Carbon Dioxide Anion Gap BUN Creatinine Est GFR ( Amer) Est GFR (Non-Af Amer) Random Glucose Hemoglobin A1c Calcium Total Bilirubin AST ALT Alkaline Phosphatase Total Protein Albumin Globulin Albumin/Globulin Ratio Fingerstick Blood Sugar Results: 154 Review of Systems - Constitutional Constitutional: absent: Fever, Chills, Sweats - EENT Eyes: UNREMARKABLE Ears: UNREMARKABLE Nose/Mouth/Throat: UNREMARKABLE - Cardiovascular Cardiovascular: UNREMARKABLE - Respiratory Respiratory: UNREMARKABLE - Gastrointestinal Gastrointestinal: UNREMARKABLE - Genitourinary Genitourinary: UNREMARKABLE - Musculoskeletal Musculoskeletal: UNREMARKABLE - Neurological Neurological: UNREMARKABLE Critical Care Progress Note - Ventilator Checklist Head of Bed 30 Degrees: Yes DVT Prophylaxis: Yes - Extremities/Vascular Does the Patient have a Central Venous Catheter?: No - Prophylaxis DVT Prophylaxis DVT: Lovenox - Nutrition Nutrition: Nutrition Category Date Time Status NPO Diet [DIET] Diets 02/19/18 Breakfast Active Assessment/Plan - Assessment and Plan (Free Text) Assessment: 47y/o male with a PMHx of Asthma, poly substance abuse and Schizophrenia admitted to ICU due to respiratory failure secondary to combination of status asthmaticus and polysubstance overdose. Plan: 1) Acute Respiratory Failure secondary to Status Asthmaticus/Polysubstance Overdose -awake, alert, sitting up right, vitals stable -CXR 02/23: no interval acute cardiopulmonary disease appreciated -plan to extubate, placed on CPAP, tolerated well, very active and responsive, transfer to venti mask on 50% FiO2 -discontinued sedation drips -WBC: wnl -monitor vitals -solu-medrol 40mg Q8H -Duo-neb Q4H -Albuterol Q2H PRN -speech/swallow evaluation -PT evaluation and treatment 2. RUL Collapse/Atelectasis - Resolved - Chest Physiotherapy - IV Zosyn 3) Polysubstance Abuse/Drug Overdose - Drug Screen : + for Opiates, Cocaine , PCP - Ativan PRN 4) Prophylaxis -VTE: Lovenox 40mg SC QD 5) Diet: -NPO pending speech/swallow evaluation 6) Code Status: -Full code <Mick Fung - Last Filed: 02/23/18 13:51> CCU Subjective - Physician Review Events Since Last Encounter (Free Text): Attestation: Patient seen and examined at the bedside with Resident Dr. Graham Garduno; and I agree with his outline of plans and management documented below as discussed on AM rounds reflecting my review of all applicable clinical data, and participation in the care of the patient throughout the day in ICU; today, February 23, 2018. CCU Objective - Medications Active Medications: Active Medications Generic Name Dose Route Start Last Admin Trade Name Freq PRN Reason Stop Dose Admin Acetylcysteine 4 ml 02/22/18 16:00 02/23/18 11:31 Mucomyst 10% 4ml IH 4 ml RQID RODRIGO Administration Albuterol/Ipratropium 3 ml 02/19/18 08:00 02/23/18 11:31 Duoneb 3 Mg/0.5 Mg (3 Ml) Ud INH 3 ml RQ4 RODRIGO Administration Famotidine 40 mg 02/23/18 22:00 Pepcid PO HS RODRIGO Folic Acid 1 mg 02/24/18 09:00 Folic Acid PO DAILY RODRIGO Piperacillin Sod/Tazobactam 100 mls @ 100 mls/hr 02/21/18 16:00 02/23/18 10: 11 Sod 3.375 gm/ Sodium Chloride IVPB 100 mls/hr Q6 RODRIGO Administration Protocol Lorazepam 2 mg 02/20/18 06:24 02/22/18 21:46 Ativan IM 2 mg Q4 PRN Administration Agitation Methylprednisolone 40 mg 02/24/18 09:00 Solu-Medrol IVP DAILY RODRIGO Nicotine 1 patch 02/21/18 12:15 02/23/18 10:05 Nicoderm Cq TD 1 patch DAILY RODRIGO Administration Thiamine HCl 100 mg 02/24/18 09:00 Vitamin B1 Tab PO DAILY RODRIGO - Patient Studies Lab Studies: Microbiology Studies 02/19/18 08:20 Blood Culture - Preliminary Blood-Venous NO GROWTH AFTER 4 DAYS 02/19/18 08:00 Blood Culture - Preliminary Blood-Venous NO GROWTH AFTER 4 DAYS Lab Studies 02/23/18 02/23/18 02/23/18 Range/Units 05:27 04:25 04:25 WBC 8.7 (4.8-10.8) K/uL RBC 3.82 L (4.40-5.90) Mil/uL Hgb 11.7 L (12.0-18.0) g/dL Hct 35.6 (35.0-51.0) % MCV 93.3 (80.0-94.0) fl MCH 30.7 (27.0-31.0) pg MCHC 32.9 L (33.0-37.0) g/dL RDW 13.3 (11.5-14.5) % Plt Count 222 (130-400) K/uL MPV 8.9 (7.2-11.7) fl Neut % (Auto) 88.1 H (50.0-75.0) % Lymph % (Auto) 4.1 L (20.0-40.0) % [place] % (Auto) 7.5 (0.0-10.0) % Eos % (Auto) 0.0 (0.0-4.0) % Baso % (Auto) 0.3 (0.0-2.0) % Neut # (Auto) 7.7 H (1.8-7.0) K/uL Lymph # (Auto) 0.4 L (1.0-4.3) K/uL [place] # (Auto) 0.7 (0.0-0.8) K/uL Eos # (Auto) 0.0 (0.0-0.7) K/uL Baso # (Auto) 0.0 (0.0-0.2) K/uL Neutrophils % (Manual) 90 H (42-75) % Lymphocytes % (Manual) 4 L (20-50) % Monocytes % (Manual) 6 (0-10) % Toxic Granulation Present Platelet Estimate Normal (NORMAL) Anisocytosis (manual) Slight pCO2 61 H (35-45) mm/Hg pO2 74 L (80-100) mm/Hg HCO3 31.3 H (21-28) mmol/L ABG pH 7.37 (7.35-7.45) ABG Total CO2 37.2 H (22-28) mmol/L ABG O2 Saturation 97.3 (95-98) % ABG O2 Content 15.4 (15-23) ML/dL ABG Base Excess 8.2 H (-2.0-3.0) mmol/L ABG Hemoglobin 11.6 L (11.7-17.4) g/dL ABG Carboxyhemoglobin 2.0 H (0.5-1.5) % POC ABG HHb (Measured) 2.6 (0.0-5.0) % ABG Methemoglobin 1.3 (0.0-3.0) % ABG O2 Capacity 15.8 L (16-24) mL/dL Jam Test Yes A-a O2 Difference 278.0 mm/Hg Hgb O2 Saturation 94.1 L (95.0-98.0) % Vent Mode A/c Mechanical Rate 18 FiO2 60.0 % Tidal Volume 500 PEEP 5 Sodium 143 (132-148) mmol/l Potassium 4.4 (3.6-5.0) MMOL/L Chloride 101 (98-107) mmol/L Carbon Dioxide 31 H (22-30) mmol/L Anion Gap 15 (10-20) BUN 29 H (9-20) mg/dl Creatinine 1.0 (0.8-1.5) mg/dl Est GFR ( Amer) > 60 Est GFR (Non-Af Amer) > 60 Random Glucose 140 H (75-110) mg/dL Hemoglobin A1c (4.2-6.5) % Calcium 8.7 (8.4-10.2) mg/dL Total Bilirubin 0.6 (0.2-1.3) mg/dl AST 21 (17-59) U/L ALT 35 (21-72) U/L Alkaline Phosphatase 49 (38-126) U/L Total Protein 6.3 (6.3-8.2) G/DL Albumin 3.1 L (3.5-5.0) g/dL Globulin 3.1 (2.2-3.9) gm/dL Albumin/Globulin Ratio 1.0 (1.0-2.1) / Range/Units 13:43 WBC (4.8-10.8) K/uL RBC (4.40-5.90) Mil/uL Hgb (12.0-18.0) g/dL Hct (35.0-51.0) % MCV (80.0-94.0) fl MCH (27.0-31.0) pg MCHC (33.0-37.0) g/dL RDW (11.5-14.5) % Plt Count (130-400) K/uL MPV (7.2-11.7) fl Neut % (Auto) (50.0-75.0) % Lymph % (Auto) (20.0-40.0) % [place] % (Auto) (0.0-10.0) % Eos % (Auto) (0.0-4.0) % Baso % (Auto) (0.0-2.0) % Neut # (Auto) (1.8-7.0) K/uL Lymph # (Auto) (1.0-4.3) K/uL [place] # (Auto) (0.0-0.8) K/uL Eos # (Auto) (0.0-0.7) K/uL Baso # (Auto) (0.0-0.2) K/uL Neutrophils % (Manual) (42-75) % Lymphocytes % (Manual) (20-50) % Monocytes % (Manual) (0-10) % Toxic Granulation Platelet Estimate (NORMAL) Anisocytosis (manual) pCO2 (35-45) mm/Hg pO2 (80-100) mm/Hg HCO3 (21-28) mmol/L ABG pH (7.35-7.45) ABG Total CO2 (22-28) mmol/L ABG O2 Saturation (95-98) % ABG O2 Content (15-23) ML/dL ABG Base Excess (-2.0-3.0) mmol/L ABG Hemoglobin (11.7-17.4) g/dL ABG Carboxyhemoglobin (0.5-1.5) % POC ABG HHb (Measured) (0.0-5.0) % ABG Methemoglobin (0.0-3.0) % ABG O2 Capacity (16-24) mL/dL Jam Test A-a O2 Difference mm/Hg Hgb O2 Saturation (95.0-98.0) % Vent Mode Mechanical Rate FiO2 % Tidal Volume PEEP Sodium (132-148) mmol/l Potassium (3.6-5.0) MMOL/L Chloride (98-107) mmol/L Carbon Dioxide (22-30) mmol/L Anion Gap (10-20) BUN (9-20) mg/dl Creatinine (0.8-1.5) mg/dl Est GFR ( Amer) Est GFR (Non-Af Amer) Random Glucose (75-110) mg/dL Hemoglobin A1c 5.0 (4.2-6.5) % Calcium (8.4-10.2) mg/dL Total Bilirubin (0.2-1.3) mg/dl AST (17-59) U/L ALT (21-72) U/L Alkaline Phosphatase (38-126) U/L Total Protein (6.3-8.2) G/DL Albumin (3.5-5.0) g/dL Globulin (2.2-3.9) gm/dL Albumin/Globulin Ratio (1.0-2.1) Laboratory Results - last 24 hr 02/19/18 02/23/18 02/23/18 13:43 04:25 04:25 WBC 8.7 RBC 3.82 L Hgb 11.7 L Hct 35.6 MCV 93.3 MCH 30.7 MCHC 32.9 L RDW 13.3 Plt Count 222 MPV 8.9 Neut % (Auto) 88.1 H Lymph % (Auto) 4.1 L [place] % (Auto) 7.5 Eos % (Auto) 0.0 Baso % (Auto) 0.3 Neut # (Auto) 7.7 H Lymph # (Auto) 0.4 L [place] # (Auto) 0.7 Eos # (Auto) 0.0 Baso # (Auto) 0.0 Neutrophils % (Manual) 90 H Lymphocytes % (Manual) 4 L Monocytes % (Manual) 6 Toxic Granulation Present Platelet Estimate Normal Anisocytosis (manual) Slight pCO2 pO2 HCO3 ABG pH ABG Total CO2 ABG O2 Saturation ABG O2 Content ABG Base Excess ABG Hemoglobin ABG Carboxyhemoglobin POC ABG HHb (Measured) ABG Methemoglobin ABG O2 Capacity Jam Test A-a O2 Difference Hgb O2 Saturation Vent Mode Mechanical Rate FiO2 Tidal Volume PEEP Sodium 143 Potassium 4.4 Chloride 101 Carbon Dioxide 31 H Anion Gap 15 BUN 29 H Creatinine 1.0 Est GFR ( Amer) > 60 Est GFR (Non-Af Amer) > 60 Random Glucose 140 H Hemoglobin A1c 5.0 Calcium 8.7 Total Bilirubin 0.6 AST 21 ALT 35 Alkaline Phosphatase 49 Total Protein 6.3 Albumin 3.1 L Globulin 3.1 Albumin/Globulin Ratio 1.0 02/23/18 05:27 WBC RBC Hgb Hct MCV MCH MCHC RDW Plt Count MPV Neut % (Auto) Lymph % (Auto) [place] % (Auto) Eos % (Auto) Baso % (Auto) Neut # (Auto) Lymph # (Auto) [place] # (Auto) Eos # (Auto) Baso # (Auto) Neutrophils % (Manual) Lymphocytes % (Manual) Monocytes % (Manual) Toxic Granulation Platelet Estimate Anisocytosis (manual) pCO2 61 H pO2 74 L HCO3 31.3 H ABG pH 7.37 ABG Total CO2 37.2 H ABG O2 Saturation 97.3 ABG O2 Content 15.4 ABG Base Excess 8.2 H ABG Hemoglobin 11.6 L ABG Carboxyhemoglobin 2.0 H POC ABG HHb (Measured) 2.6 ABG Methemoglobin 1.3 ABG O2 Capacity 15.8 L Jam Test Yes A-a O2 Difference 278.0 Hgb O2 Saturation 94.1 L Vent Mode A/c Mechanical Rate 18 FiO2 60.0 Tidal Volume 500 PEEP 5 Sodium Potassium Chloride Carbon Dioxide Anion Gap BUN Creatinine Est GFR ( Amer) Est GFR (Non-Af Amer) Random Glucose Hemoglobin A1c Calcium Total Bilirubin AST ALT Alkaline Phosphatase Total Protein Albumin Globulin Albumin/Globulin Ratio
--- NOTE | 2018-02-23 13:20 | PCM.PROC ---
Procedures Attestation:: I certify that I have explained the specified Operation(s) or Procedure(s), risks, benefits and reasonable alternatives to the Patient and/or other person responsible. The opportunity was given to ask questions and all questions answered - Extubation Clinical Parameters: Resolution/Stabilization of disease process, Hemodynamically Stable, Intact Cough/Gag Reflex, Spontaneous Respirations, Acceptable Vent Settings (FIO2<50%, PEEP<8, PaO2>75, pH>7.25) Weaning Criteria Met: Yes General Weaning Approaches: Pressure Support Ventilation (PSV) Weaning Patient Condition: Patient has been successfully extubated and assessed Oxygen Therapy: O2 via Venti Mask Patient Tolerated Procedure: Well
--- NOTE | 2018-02-23 16:03 | CP.PCM.PN ---
Subjective - Date & Time of Evaluation Date of Evaluation: 02/23/18 Time of Evaluation: 11:00 - Subjective Subjective: F/U Respiratory failure no AD, extubated , on NC O2 sat high 90's Objective - Vital Signs/Intake and Output Vital Signs (last 24 hours): Temp Pulse Resp BP Pulse Ox 98.5 F 98 H 65 H 109/63 96 02/23/18 12:00 02/23/18 12:00 02/23/18 12:00 02/23/18 12:00 02/23/18 12:00 Intake and Output: 02/23/18 02/23/18 06:59 18:59 Intake Total 760 400 Output Total 700 Balance 60 400 - Medications Medications: Current Medications Acetylcysteine (Mucomyst 10% 4ml) 4 ml IH RQID [facility] Last Admin: 02/23/18 15:43 Dose: 4 ml Albuterol/Ipratropium (Duoneb 3 Mg/0.5 Mg (3 Ml) Ud) 3 ml INH RQ4 [facility] Last Admin: 02/23/18 15:43 Dose: 3 ml Famotidine (Pepcid) 40 mg PO HS [facility] Folic Acid (Folic Acid) 1 mg PO DAILY [facility] Piperacillin Sod/Tazobactam (Sod 3.375 gm/ Sodium Chloride) 100 mls @ 100 mls/ hr IVPB Q6 RODRIGO PRN Reason: Protocol Last Admin: 02/23/18 10:11 Dose: 100 mls/hr Lorazepam (Ativan) 1 mg IVP Q4 PRN PRN Reason: Agitation Methylprednisolone (Solu-Medrol) 40 mg IVP DAILY [facility] Nicotine (Nicoderm Cq) 1 patch TD DAILY [facility] Last Admin: 02/23/18 10:05 Dose: 1 patch Thiamine HCl (Vitamin B1 Tab) 100 mg PO DAILY [facility] - Labs Labs: 02/23/18 04:25 02/23/18 04:25 - Constitutional Appears: No Acute Distress - Head Exam Head Exam: NORMAL INSPECTION - Eye Exam Eye Exam: PERRL - ENT Exam Additional comments: Extubated in AM - Neck Exam Neck Exam: Normal Inspection - Respiratory Exam Respiratory Exam: Wheezes - Cardiovascular Exam Cardiovascular Exam: REGULAR RHYTHM - GI/Abdominal Exam GI & Abdominal Exam: Soft, Normal Bowel Sounds - Exam Additional comments: R inguinal hernia - Extremities Exam Extremities Exam: Normal Inspection - Back Exam Back Exam: NORMAL INSPECTION - Neurological Exam Neurological Exam: Alert, Awake, CN II-XII Intact, Reflexes Normal - Psychiatric Exam Psychiatric exam: Normal Affect - Skin Skin Exam: Warm Assessment and Plan (1) Respiratory failure Status: Resolved (2) Asthma exacerbation Status: Acute (3) Collapse of right lung Status: Resolved - Assessment and Plan (Free Text) Plan: CXR collapse RUL 2nd to mucus plug resolved , Patient on DuoNeb Mucomyst , Solu Medrol ,Zosyn , Nicotine Patch, continue current treatment
--- NOTE | 2018-02-23 18:16 | CP.PCM.CON ---
History of Present Illness - History of Present Illness History of Present Illness: General Surgery Consult: Dr. Stroud 47M with PMHx of asthma, Schizophrenia, IV drug use, presented to [facility] ED on with acute respiratory failure secondary to status asthmaticus for which he ended up being intubated. General surgery consulted for right inguinal hernia. At time of examinations patient was extubated and able to speak full sentences. Patient complained of mild right groin. Patient denies nausea/ vomiting. Patient is tolerating diet. Right inguinal hernia is mildly tender, but reducible. No signs of incarceration on physical exam. Denies fever/chills. PMH: Asthma; Schizophrenia PSH: Right Inguinal Hernia repair SH: Admits to use of illicit drugs: Heroin, cocaine, PCP. Current smoker 1/2ppd ; EtOH abuse FH: non-contributory Allergies: NKDA Medication: reviewed Review of Systems - Review of Systems Review of Systems: 12 pt ROS unremarkable, except as stated in HPI Past Patient History - Infectious Disease Hx of Infectious Diseases: None - Past Medical History & Family History Past Medical History?: Yes - Past Social History Smoking Status: Heavy Smoker > 10 Cigarettes Daily Drugs: Cannabis, Cocaine, Opiates Home Situation {Lives}: With Family - CARDIAC Hx Cardiac Disorders: No Hx Hypertension: No - PULMONARY Hx Respiratory Disorders: Yes Hx Asthma: Yes - NEUROLOGICAL Hx Neurological Disorder: No - HEENT Hx HEENT Problems: No - RENAL Hx Chronic Kidney Disease: No - ENDOCRINE/METABOLIC Hx Endocrine Disorders: Yes Hx Diabetes Mellitus Type 2: Yes (??) - HEMATOLOGICAL/ONCOLOGICAL Hx Blood Disorders: No Hx Cancer: No - INTEGUMENTARY Hx Dermatological Problems: No - MUSCULOSKELETAL/RHEUMATOLOGICAL Hx Musculoskeletal Disorders: No - GASTROINTESTINAL Hx Gastrointestinal Disorders: Yes Other/Comment: Hx right inguinal hernia - GENITOURINARY/GYNECOLOGICAL Other/Comment: Hernia right inguinal - PSYCHIATRIC Hx Psychophysiologic Disorder: Yes Hx Schizophrenia: Yes Hx Substance Use: Yes - SURGICAL HISTORY Hx Surgeries: No - ANESTHESIA Hx Anesthesia: No Hx Anesthesia Reactions: No Hx Malignant Hyperthermia: No Meds Allergies/Adverse Reactions: Allergies Allergy/AdvReac Type Severity Reaction Status Date / Time No Known Allergies Allergy Verified 09/26/16 13:28 - Medications Medications: Current Medications Acetylcysteine (Mucomyst 10% 4ml) 4 ml IH RQID [facility] Last Admin: 02/23/18 15:43 Dose: 4 ml Albuterol/Ipratropium (Duoneb 3 Mg/0.5 Mg (3 Ml) Ud) 3 ml INH RQ4 [facility] Last Admin: 02/23/18 15:43 Dose: 3 ml Famotidine (Pepcid) 40 mg PO HS [facility] Folic Acid (Folic Acid) 1 mg PO DAILY [facility] Piperacillin Sod/Tazobactam (Sod 3.375 gm/ Sodium Chloride) 100 mls @ 100 mls/ hr IVPB Q6 [facility] PRN Reason: Protocol Last Admin: 02/23/18 17:19 Dose: 100 mls/hr Lorazepam (Ativan) 1 mg IVP Q4 PRN PRN Reason: Agitation Methylprednisolone (Solu-Medrol) 40 mg IVP DAILY [facility] Nicotine (Nicoderm Cq) 1 patch TD DAILY [facility] Last Admin: 02/23/18 10:05 Dose: 1 patch Thiamine HCl (Vitamin B1 Tab) 100 mg PO DAILY [facility] Physical Exam - Constitutional Appears: No Acute Distress - Head Exam Head Exam: NORMOCEPHALIC - Eye Exam Eye Exam: EOMI, Normal appearance - ENT Exam ENT Exam: Mucous Membranes Moist - Respiratory Exam Respiratory Exam: NORMAL BREATHING PATTERN Additional comments: +cough - Cardiovascular Exam Cardiovascular Exam: Tachycardia, +S1, +S2 - GI/Abdominal Exam GI & Abdominal Exam: Hernia, Soft, Tenderness. absent: Distended, Firm, Guarding, Rebound, Rigid Additional comments: Right inguinal hernia, reducible no peritoneal signs mild tenderness on palpation of hernia - Neurological Exam Neurological exam: Alert, Oriented x3 - Psychiatric Exam Psychiatric exam: Normal Mood - Skin Skin Exam: Dry, Intact, Warm Results - Vital Signs Recent Vital Signs: Last Vital Signs Temp 98.7 F 02/23/18 16:00 Pulse 108 H 02/23/18 17:00 Resp 21 02/23/18 17:00 BP 159/84 H 02/23/18 17:00 Pulse Ox 96 02/23/18 17:00 - Labs Result Diagrams: 02/23/18 04:25 02/23/18 04:25 Labs: Laboratory Results - last 24 hr 02/23/18 02/23/18 02/23/18 04:25 04:25 05:27 WBC 8.7 RBC 3.82 L Hgb 11.7 L Hct 35.6 MCV 93.3 MCH 30.7 MCHC 32.9 L RDW 13.3 Plt Count 222 MPV 8.9 Neut % (Auto) 88.1 H Lymph % (Auto) 4.1 L [place] % (Auto) 7.5 Eos % (Auto) 0.0 Baso % (Auto) 0.3 Neut # (Auto) 7.7 H Lymph # (Auto) 0.4 L [place] # (Auto) 0.7 Eos # (Auto) 0.0 Baso # (Auto) 0.0 Neutrophils % (Manual) 90 H Lymphocytes % (Manual) 4 L Monocytes % (Manual) 6 Toxic Granulation Present Platelet Estimate Normal Anisocytosis (manual) Slight pCO2 61 H pO2 74 L HCO3 31.3 H ABG pH 7.37 ABG Total CO2 37.2 H ABG O2 Saturation 97.3 ABG O2 Content 15.4 ABG Base Excess 8.2 H ABG Hemoglobin 11.6 L ABG Carboxyhemoglobin 2.0 H POC ABG HHb (Measured) 2.6 ABG Methemoglobin 1.3 ABG O2 Capacity 15.8 L Jam Test Yes A-a O2 Difference 278.0 Hgb O2 Saturation 94.1 L Vent Mode A/c Mechanical Rate 18 FiO2 60.0 Tidal Volume 500 PEEP 5 Sodium 143 Potassium 4.4 Chloride 101 Carbon Dioxide 31 H Anion Gap 15 BUN 29 H Creatinine 1.0 Est GFR ( Amer) > 60 Est GFR (Non-Af Amer) > 60 Random Glucose 140 H Calcium 8.7 Total Bilirubin 0.6 AST 21 ALT 35 Alkaline Phosphatase 49 Total Protein 6.3 Albumin 3.1 L Globulin 3.1 Albumin/Globulin Ratio 1.0 Assessment & Plan - Assessment and Plan (Free Text) Assessment: 47M with Right inguinal hernia, reducible Plan: -Inguinal hernia is not incarcerated -Easily reducible -No plan for acute surgical intervention -Patient may follow up in General Surgery clinic with Dr. Stroud for Elective right inguinal hernia repair -Must be medically optimized prior to elective right inguinal hernia repair -No further intervention at this present time -Please reconsult as needed D/w Dr. Maximus Mckeon PGY2
[2018-02-24] MEDS: Piperacillin/Tazobact 3.375 GM in Sodium Chloride 0.9% 100 ML IVPB SCH ×4 (04:22→22:45)
[2018-02-24] MEDS: Albuterol-Ipratrop 3 mg / 0.5 (3 ml) UD INH SCH ×6 (04:49→23:57)
[2018-02-24 05:09] LABS: HEMOGLOBIN 12.7 g/dL (12.0-18.0); MEAN CELL VOLUME 93.1 fl (80.0-94.0); MEAN CORPUSCULAR HEMOGLOBIN 30.5 pg (27.0-31.0); MEAN CORPUSCULAR HGB CONC 32.8 g/dL (33.0-37.0); RBC 4.15 Mil/uL (4.40-5.90); RED CELL DISTRIBUTION WIDTH 13.5 % (11.5-14.5); WHITE BLOOD COUNT 10.7 K/uL (4.8-10.8)
[2018-02-24 05:25] LABS: ALT/SGPT 52 U/L (21-72); AST/SGOT 58 U/L (17-59); BLOOD UREA NITROGEN 20 mg/dl (9-20); CALCIUM 8.8 mg/dL (8.4-10.2); GFR AFRICAN-AMERICAN > 60; GFR NON-AFRICAN AMERICAN > 60
[2018-02-24] MEDS ORDERED: Potassium Chloride 20 mEq ER Tab PO ONE ×2 (06:08→11:27)
[2018-02-24] MEDS ORDERED: Potassium Chloride 20 mEq 100 ML IVPB SCH (07:00)
[2018-02-24] MEDS: Acetylcysteine 10% 4 ML IH SCH ×4 (08:04→19:54)
--- NOTE | 2018-02-24 08:23 | US ---
PROCEDURE: RIGHT INGUINAL ULTRASOUND HISTORY: please eval for hernia COMPARISON: Abdomen pelvis CT with contrast 09/13/2016. TECHNIQUE: Sonographic interrogation of the right inguinal region was performed using high-frequency linear array transducer in longitudinal and transverse projections with color Doppler technique added. FINDINGS: There is fluid extending into the right inguinal canal and into the right hemiscrotum resulting and a large right hemiscrotal hydrocele. Occasional debris is identified within this fluid at the dependent portion. No definite bowel is demonstrated involving the right inguinal space or the right isabel scrotum. No solid mass appreciable. IMPRESSION: Interval fluid collection in the right inguinal canal resulting and a larger right hemiscrotal hydrocele suspicious for potential ascites in the abdomen. Follow-up abdomen ultrasound or abdomen pelvis CT can be performed for additional detailed evaluation. No bowel involvement apparent at the right inguinal region or right hemiscrotum.
[2018-02-24] MEDS: MethylPREDNISolone 40 mg Vial IVP SCH (09:36)
--- NOTE | 2018-02-24 12:22 | CP.PCM.PN ---
Subjective - Date & Time of Evaluation Date of Evaluation: 02/24/18 Time of Evaluation: 12:00 - Subjective Subjective: Pt was extubated yesterday, now on NC Pt is awake, oriented, not in distress occ cough afebrile today denies CP no SOB no abd pain Will transfer pt to Med Surg today Objective - Vital Signs/Intake and Output Vital Signs (last 24 hours): Temp Pulse Resp BP Pulse Ox 98.8 F 72 21 123/93 H 99 02/24/18 08:00 02/24/18 10:00 02/24/18 10:00 02/24/18 10:00 02/24/18 10:00 Intake and Output: 02/24/18 02/24/18 06:59 18:59 Intake Total 700 340 Output Total 650 600 Balance 50 -260 - Medications Medications: Current Medications Acetylcysteine (Mucomyst 10% 4ml) 4 ml IH RQID [facility] Last Admin: 02/24/18 11:03 Dose: 4 ml Albuterol/Ipratropium (Duoneb 3 Mg/0.5 Mg (3 Ml) Ud) 3 ml INH RQ4 [facility] Last Admin: 02/24/18 11:03 Dose: 3 ml Famotidine (Pepcid) 40 mg PO HS [facility] Last Admin: 02/23/18 22:14 Dose: 40 mg Folic Acid (Folic Acid) 1 mg PO DAILY [facility] Last Admin: 02/24/18 09:29 Dose: 1 mg Piperacillin Sod/Tazobactam (Sod 3.375 gm/ Sodium Chloride) 100 mls @ 100 mls/ hr IVPB Q6 [facility] PRN Reason: Protocol Last Admin: 02/24/18 09:37 Dose: 100 mls/hr Lorazepam (Ativan) 0.5 mg IVP Q4 PRN PRN Reason: Agitation Methylprednisolone (Solu-Medrol) 40 mg IVP DAILY [facility] Last Admin: 02/24/18 09:36 Dose: 40 mg Nicotine (Nicoderm Cq) 1 patch TD DAILY [facility] Last Admin: 02/24/18 09:34 Dose: 1 patch Thiamine HCl (Vitamin B1 Tab) 100 mg PO DAILY [facility] Last Admin: 02/24/18 09:36 Dose: 100 mg - Labs Labs: 02/24/18 04:45 02/24/18 04:45 - Constitutional Appears: Non-toxic, No Acute Distress - Head Exam Head Exam: NORMAL INSPECTION, NORMOCEPHALIC - Eye Exam Eye Exam: EOMI, Normal appearance, PERRL Pupil Exam: NORMAL ACCOMODATION - ENT Exam ENT Exam: Mucous Membranes Moist, Normal External Ear Exam - Neck Exam Neck Exam: Full ROM. absent: Meningismus - Respiratory Exam Respiratory Exam: Rales, Rhonchi, NORMAL BREATHING PATTERN. absent: Wheezes, Respiratory Distress - Cardiovascular Exam Cardiovascular Exam: REGULAR RHYTHM, +S1, +S2 - GI/Abdominal Exam GI & Abdominal Exam: Soft, Normal Bowel Sounds. absent: Tenderness - Extremities Exam Extremities Exam: Full ROM, Normal Capillary Refill. absent: Calf Tenderness, Pedal Edema - Back Exam Back Exam: Full ROM. absent: CVA tenderness (L), CVA tenderness (R) - Neurological Exam Neurological Exam: Alert, Awake, CN II-XII Intact, Oriented x3 Neuro motor strength exam: Left Upper Extremity: 5, Right Upper Extremity: 5, Left Lower Extremity: 5, Right Lower Extremity: 5 - Psychiatric Exam Psychiatric exam: Flat Affect, Normal Mood - Skin Skin Exam: Dry, Normal Color, Warm Assessment and Plan - Assessment and Plan (Free Text) Assessment: 47 years old male with hx of Asthma, substance abuse and Schizophrenia who comes with one day of worsening SOB, associated with generalized chest pain. He came into the ED talking but became obtunded , desaturated and was intubated . He admitted to ICU for further management. 02/21: low grade fever 100.2, WBC 14k, tachycardic, cake maker initiated Zosyn for empiric coverage. 02/23 : Extubated 1. Acute Respiratory Failure with Acidosis sec to Drug Overdose - Pt was intubated on admission , extubated on 02/23 - Duoneb RTC - Pulmonary consulted 2. RUL Collapse/Atelectasis prob due to Mucus Plugging - discussed case with Dr Patricio- rec doing CT of Chest and starting Mucomyst - Chest Physiotherapy - Suctioning - empirically started on IV Zosyn 3. Acute Asthma Exacerbation -decrease Solu-medrol 40mg daily - Duoneb Q4H - Albuterol Q2h PRN 4. Polysubstance Abuse/Drug Overdose - Pt admitted to Heroin Use - Drug Screen : + for Opiates, Cocaine , PCP - Pt was on Precedex drip - now off -Ativan prn for agitation /withdrawal sxs 5. Hyperkalemia, resolved 6. Hyperglycemia likely due to steroids - [id number] 6. Inguinal Hernia not incarcerated, reducible Surgery consulted- no surgical intervention for now - mgt as outpt 7. Hypokalemia replace with KCl PO Check Mg , Phos #. DVT prophylaxis with Lovenox #. Code Status: Full
--- NOTE | 2018-02-24 13:15 | CP.PCM.PN ---
Subjective - Date & Time of Evaluation Date of Evaluation: 02/24/18 - Subjective Subjective: F/U Respiratory failure. no AD , no SOB , no cough Objective - Vital Signs/Intake and Output Vital Signs (last 24 hours): Temp Pulse Resp BP Pulse Ox 98.2 F 102 H 20 134/71 96 02/24/18 12:00 02/24/18 12:00 02/24/18 12:00 02/24/18 12:00 02/24/18 12:00 Intake and Output: 02/24/18 02/24/18 06:59 18:59 Intake Total 700 340 Output Total 650 600 Balance 50 -260 - Medications Medications: Current Medications Acetylcysteine (Mucomyst 10% 4ml) 4 ml IH RQID [facility] Last Admin: 02/24/18 11:03 Dose: 4 ml Albuterol/Ipratropium (Duoneb 3 Mg/0.5 Mg (3 Ml) Ud) 3 ml INH RQ4 [facility] Last Admin: 02/24/18 11:03 Dose: 3 ml Famotidine (Pepcid) 40 mg PO HS [facility] Last Admin: 02/23/18 22:14 Dose: 40 mg Folic Acid (Folic Acid) 1 mg PO DAILY [facility] Last Admin: 02/24/18 09:29 Dose: 1 mg Piperacillin Sod/Tazobactam (Sod 3.375 gm/ Sodium Chloride) 100 mls @ 100 mls/ hr IVPB Q6 [facility] PRN Reason: Protocol Last Admin: 02/24/18 09:37 Dose: 100 mls/hr Lorazepam (Ativan) 0.5 mg IVP Q4 PRN PRN Reason: Agitation Methylprednisolone (Solu-Medrol) 40 mg IVP DAILY [facility] Last Admin: 02/24/18 09:36 Dose: 40 mg Nicotine (Nicoderm Cq) 1 patch TD DAILY [facility] Last Admin: 02/24/18 09:34 Dose: 1 patch Thiamine HCl (Vitamin B1 Tab) 100 mg PO DAILY [facility] Last Admin: 02/24/18 09:36 Dose: 100 mg - Labs Labs: 02/24/18 04:45 02/24/18 04:45 - Constitutional Appears: No Acute Distress - Head Exam Head Exam: NORMAL INSPECTION - Eye Exam Eye Exam: PERRL - ENT Exam ENT Exam: Normal Exam - Neck Exam Neck Exam: Normal Inspection - Respiratory Exam Respiratory Exam: Rhonchi - Cardiovascular Exam Cardiovascular Exam: REGULAR RHYTHM - GI/Abdominal Exam GI & Abdominal Exam: Soft, Normal Bowel Sounds - Exam Additional comments: R inguinal hernia - Extremities Exam Extremities Exam: Normal Inspection - Back Exam Back Exam: NORMAL INSPECTION - Neurological Exam Neurological Exam: Alert, Awake, CN II-XII Intact, Reflexes Normal - Psychiatric Exam Psychiatric exam: Normal Affect - Skin Skin Exam: Warm Assessment and Plan (1) Respiratory failure Status: Resolved (2) Asthma exacerbation Status: Acute (3) Collapse of right lung Status: Resolved - Assessment and Plan (Free Text) Plan: continue DuoNeb , Mucomyst , Nicoderm , taper SoluMedrol, Patient to be transferred to [facility] Surg
[2018-02-24 13:18] LABS: BLOOD UREA NITROGEN 18 mg/dl (9-20); CALCIUM 8.5 mg/dL (8.4-10.2); GFR AFRICAN-AMERICAN > 60; GFR NON-AFRICAN AMERICAN > 60
[2018-02-24 23:37] VITALS: RESP 20
[2018-02-25] MEDS: Albuterol-Ipratrop 3 mg / 0.5 (3 ml) UD INH SCH ×3 (04:29→11:39)
[2018-02-25] MEDS: Piperacillin/Tazobact 3.375 GM in Sodium Chloride 0.9% 100 ML IVPB SCH ×2 (05:00→10:33)
[2018-02-25 06:59] LABS: HEMOGLOBIN 11.8 g/dL (12.0-18.0); MEAN CELL VOLUME 91.1 fl (80.0-94.0); MEAN CORPUSCULAR HEMOGLOBIN 30.7 pg (27.0-31.0); MEAN CORPUSCULAR HGB CONC 33.7 g/dL (33.0-37.0); RBC 3.85 Mil/uL (4.40-5.90); RED CELL DISTRIBUTION WIDTH 12.9 % (11.5-14.5); WHITE BLOOD COUNT 8.7 K/uL (4.8-10.8)
[2018-02-25 07:13] LABS: BLOOD UREA NITROGEN 12 mg/dl (9-20); CALCIUM 8.6 mg/dL (8.4-10.2); GFR AFRICAN-AMERICAN > 60; GFR NON-AFRICAN AMERICAN > 60
[2018-02-25] MEDS ORDERED: Potassium Chloride 20 mEq ER Tab PO ONE (07:30)
[2018-02-25] MEDS ORDERED: Potassium Phosphate 30 MMOLE in Sodium Chloride 0.9% 250 ML IV ONE (07:31)
[2018-02-25] MEDS: Acetylcysteine 10% 4 ML IH SCH (07:42)
[2018-02-25 07:50] VITALS: BP 104/63; TEMP 99.6
[2018-02-25] MEDS: MethylPREDNISolone 40 mg Vial IVP SCH (09:32)
[2018-02-25 11:06] VITALS: PULSE 67; O2SAT 99
--- NOTE | 2018-02-25 11:37 | CP.PCM.DIS ---
Provider - Provider Date of Admission: 02/19/18 09:21 Attending physician: Eric Pratt Consults: Pulm: Dr Patricio Surgery : Dr Stroud Time Spent in preparation of Discharge (in minutes): 35 Diagnosis - Discharge Diagnosis (1) Respiratory failure Status: Resolved Priority: High (2) Asthma exacerbation Status: Acute Priority: High (3) Collapse of right lung Status: Acute Priority: High (4) Inguinal hernia Status: Chronic (5) Polysubstance abuse Status: Acute Priority: High (6) Mucus plugging of bronchi Status: Acute Hospital Course - Lab Results Lab Results: Micro Results 02/19/18 08:20 Blood-Venous Blood Culture - Final NO GROWTH AFTER 5 DAYS 02/19/18 08:20 Blood-Venous Gram Stain - Final TEST NOT PERFORMED 02/19/18 08:00 Blood-Venous Blood Culture - Final NO GROWTH AFTER 5 DAYS 02/19/18 08:00 Blood-Venous Gram Stain - Final TEST NOT PERFORMED 02/19/18 17:26 Naris MRSA Culture (Admit) - Final MRSA NOT DETECTED Most Recent Lab Values WBC 8.7 K/uL (4.8-10.8) 02/25/18 06:30 RBC 3.85 Mil/uL (4.40-5.90) L 02/25/18 06:30 Hgb 11.8 g/dL (12.0-18.0) L 02/25/18 06:30 Hct 35.1 % (35.0-51.0) 02/25/18 06:30 MCV 91.1 fl (80.0-94.0) D 02/25/18 06:30 MCH 30.7 pg (27.0-31.0) 02/25/18 06:30 MCHC 33.7 g/dL (33.0-37.0) 02/25/18 06:30 RDW 12.9 % (11.5-14.5) 02/25/18 06:30 Plt Count 287 K/uL (130-400) 02/25/18 06:30 MPV 8.9 fl (7.2-11.7) 02/23/18 04:25 Neut % (Auto) 88.1 % (50.0-75.0) H 02/23/18 04:25 Lymph % (Auto) 4.1 % (20.0-40.0) L 02/23/18 04:25 [place] % (Auto) 7.5 % (0.0-10.0) 02/23/18 04:25 Eos % (Auto) 0.0 % (0.0-4.0) 02/23/18 04:25 Baso % (Auto) 0.3 % (0.0-2.0) 02/23/18 04:25 Neut # (Auto) 7.7 K/uL (1.8-7.0) H 02/23/18 04:25 Lymph # (Auto) 0.4 K/uL (1.0-4.3) L 02/23/18 04:25 [place] # (Auto) 0.7 K/uL (0.0-0.8) 02/23/18 04:25 Eos # (Auto) 0.0 K/uL (0.0-0.7) 02/23/18 04:25 Baso # (Auto) 0.0 K/uL (0.0-0.2) 02/23/18 04:25 Neutrophils % (Manual) 90 % (42-75) H 02/23/18 04:25 Lymphocytes % (Manual) 4 % (20-50) L 02/23/18 04:25 Monocytes % (Manual) 6 % (0-10) 02/23/18 04:25 Toxic Granulation Present 02/23/18 04:25 Platelet Estimate Normal (NORMAL) 02/23/18 04:25 Anisocytosis (manual) Slight 02/23/18 04:25 pCO2 61 mm/Hg (35-45) H 02/23/18 05:27 pO2 74 mm/Hg (80-100) L 02/23/18 05:27 HCO3 31.3 mmol/L (21-28) H 02/23/18 05:27 ABG pH 7.37 (7.35-7.45) 02/23/18 05:27 ABG Total CO2 37.2 mmol/L (22-28) H 02/23/18 05:27 ABG O2 Saturation 97.3 % (95-98) 02/23/18 05:27 ABG O2 Content 15.4 ML/dL (15-23) 02/23/18 05:27 ABG Base Excess 8.2 mmol/L (-2.0-3.0) H 02/23/18 05:27 ABG Hemoglobin 11.6 g/dL (11.7-17.4) L 02/23/18 05:27 ABG Carboxyhemoglobin 2.0 % (0.5-1.5) H 02/23/18 05:27 POC ABG HHb (Measured) 2.6 % (0.0-5.0) 02/23/18 05: ABG Methemoglobin 1.3 % (0.0-3.0) 02/23/18 05:27 ABG O2 Capacity 15.8 mL/dL (16-24) L 02/23/18 05:27 Jam Test Yes 02/23/18 05: ABG Potassium 5.2 mmol/L (3.6-5.2) 02/19/18 12:11 A-a O2 Difference 278.0 mm/Hg 02/23/18 05: Hgb O2 Saturation 94.1 % (95.0-98.0) L 02/23/18 05: Sodium 135.0 mmol/L (132-148) 02/19/18 12:11 Chloride 108.0 mmol/L (98-107) H 02/19/18 12:11 Glucose 152 mg/dL (75-110) H 02/19/18 12:11 Lactate 1.0 mmol/L (0.7-2.1) 02/19/18 12:11 Vent Mode A/c 02/23/18 05:27 Mechanical Rate 18 02/23/18 05:27 FiO2 60.0 % 02/23/18 05:27 Tidal Volume 500 02/23/18 05:27 PEEP 5 02/23/18 05:27 Inspiratory BiPAP 10 02/19/18 08:11 Expiratory BiPAP 5 02/19/18 08:11 Crit Value Called To Dr eric pratt 02/20/18 04:00 Crit Value Called By Arian 02/20/18 04:00 Crit Value Read Back Y 02/20/18 04:00 Blood Gas Notified Time 500 02/20/18 04:00 Sodium 141 mmol/l (132-148) 02/25/18 06:30 Potassium 3.3 MMOL/L (3.6-5.0) L 02/25/18 06:30 Chloride 107 mmol/L (98-107) 02/25/18 06:30 Carbon Dioxide 27 mmol/L (22-30) 02/25/18 06:30 Anion Gap 10 (10-20) 02/25/18 06:30 BUN 12 mg/dl (9-20) 02/25/18 06:30 Creatinine 0.8 mg/dl (0.8-1.5) 02/25/18 06:30 Est GFR ( Amer) > 60 02/25/18 06:30 Est GFR (Non-Af Amer) > 60 02/25/18 06:30 POC Glucose (mg/dL) 143 mg/dL (65-110) H 02/21/18 04:49 Random Glucose 92 mg/dL (75-110) 02/25/18 06:30 Hemoglobin A1c 5.0 % (4.2-6.5) 02/19/18 13:43 Calcium 8.6 mg/dL (8.4-10.2) 02/25/18 06:30 Phosphorus 2.2 mg/dl (2.5-4.5) L 02/24/18 12:55 Magnesium 2.0 MG/DL (1.6-2.3) 02/24/18 12:55 Total Bilirubin 0.8 mg/dl (0.2-1.3) 02/24/18 04:45 AST 58 U/L (17-59) 02/24/18 04:45 ALT 52 U/L (21-72) 02/24/18 04:45 Alkaline Phosphatase 49 U/L (38-126) 02/24/18 04:45 Total Creatine Kinase 189 U/L (55-170) H 02/21/18 10:59 Total Protein 6.1 G/DL (6.3-8.2) L 02/24/18 04:45 Albumin 3.0 g/dL (3.5-5.0) L 02/24/18 04:45 Globulin 3.1 gm/dL (2.2-3.9) 02/24/18 04:45 Albumin/Globulin Ratio 1.0 (1.0-2.1) 02/24/18 04:45 Arterial Blood Potassium 5.2 mmol/L (3.6-5.2) 02/19/18 12:11 Urine Color Straw (YELLOW) 02/20/18 11:00 Urine Clarity Slighty-cloudy (Clear) 02/20/18 11:00 Urine pH 6.0 (5.0-8.0) 02/20/18 11:00 Ur Specific [place] 1.007 (1.003-1.030) 02/20/18 11:00 Urine Protein Negative mg/dL (NEGATIVE) 02/20/18 11:00 Urine Glucose (UA) >=500 mg/dL (Normal) 02/20/18 11:00 Urine Ketones Negative mg/dL (NEGATIVE) 02/20/18 11:00 Urine Blood Moderate (NEGATIVE) 02/20/18 11:00 Urine Nitrate Negative (NEGATIVE) 02/20/18 11:00 Urine Bilirubin Negative (NEGATIVE) 02/20/18 11:00 Urine Urobilinogen 0.2-1.0 mg/dL (0.2-1.0) 02/20/18 11:00 Ur Leukocyte Esterase Neg [place]aya/uL (Negative) 02/20/18 11:00 Urine RBC (Auto) 88 /hpf (0-3) H 02/20/18 11:00 Urine Microscopic WBC 1 /hpf (0-5) 02/20/18 11:00 Ur Squamous Epith Cells < 1 /hpf (0-5) 02/20/18 11:00 Urine Bacteria Rare (<OCC) 02/20/18 11:00 Urine Opiates Screen Positive (NEGATIVE) H 02/19/18 09:36 Urine Methadone Screen Negative (NEGATIVE) 02/19/18 09:36 Ur Barbiturates Screen Negative (NEGATIVE) 02/19/18 09:36 Ur Phencyclidine Scrn Positive (NEGATIVE) H 02/19/18 09:36 Ur Amphetamines Screen Negative (NEGATIVE) 02/19/18 09:36 U Benzodiazepines Scrn Positive (NEGATIVE) 02/19/18 09:36 U Oth Cocaine Metabols Positive (NEGATIVE) H 02/19/18 09:36 U Cannabinoids Screen Negative (NEGATIVE) 02/19/18 09:36 Alcohol, Quantitative < 10 mg/dl (0-10) 02/19/18 02:10 - Hospital Course Hospital Course: 47 years old male with hx of Asthma, substance abuse and Schizophrenia who comes with one day of worsening SOB, associated with generalized chest pain. He came into the ED talking but became obtunded , desaturated and was intubated . He was admitted to ICU for further management. 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 CXR : RUL Atelectasis/collapse 02/23 : Extubated, Rpt CXR : now normal 1. Acute Respiratory Failure with Acidosis sec to Drug Overdose - Pt was intubated on admission , extubated on 02/23 - Duoneb RTC - Pulmonary consulted 2. RUL Collapse/Atelectasis prob due to Mucus Plugging - discussed case with Dr Patricio- rec doing CT of Chest and starting Mucomyst - Chest Physiotherapy - Suctioning - empirically started on IV Zosyn - CT of chest : Post obstructive Pneumonitis/Atelectasis due to Mucus plugging 3. Acute Asthma Exacerbation -decrease Solu-medrol 40mg daily- taper off - Duoneb Q4H - Albuterol Q2h PRN - will d/c pt on Medrol dose luisa 4. Polysubstance Abuse/Drug Overdose - Pt admitted to Heroin Use - Drug Screen : + for Opiates, Cocaine , PCP - Pt was on Precedex drip - now off -Ativan prn for agitation /withdrawal sxs - Pt has no signs of withdrawal, calm , doing well - Physical therapy consulted- 5. Hyperkalemia, resolved 6. Hyperglycemia likely due to steroids - [id number] 6. Inguinal Hernia not incarcerated, reducible Surgery consulted- no surgical intervention for now - mgt as outpt 7. Hypokalemia replaced with KCl PO #. DVT prophylaxis with Lovenox Discharge Exam - Head Exam Head Exam: ATRAUMATIC, NORMAL INSPECTION - Eye Exam Eye Exam: EOMI, Normal appearance, PERRL Pupil Exam: NORMAL ACCOMODATION - ENT Exam ENT Exam: Mucous Membranes Moist, Normal External Ear Exam - Neck Exam Neck exam: Full Rom - Respiratory Exam Respiratory Exam: NORMAL BREATHING PATTERN. absent: Rales, Rhonchi, Wheezes, Respiratory Distress - Cardiovascular Exam Cardiovascular Exam: REGULAR RHYTHM, +S1, +S2 - GI/Abdominal Exam GI & Abdominal Exam: Normal Bowel Sounds, Soft. absent: Tenderness - Extremities Exam Extremities exam: full ROM, normal capillary refill, pedal pulses present - Back Exam Back exam: FULL ROM. absent: CVA tenderness (L), CVA tenderness (R) - Neurological Exam Neurological exam: Alert, CN II-XII Intact, Oriented x3, Reflexes Normal - Psychiatric Exam Psychiatric exam: Normal Affect, Normal Mood - Skin Skin Exam: Dry, Normal Color, Warm Discharge Plan - Discharge Medications Prescriptions: Methylprednisolone [Medrol Dose Pack (21 tabs)] 4 mg PO ASDIR #21 mg Nicotine 14 mg/24 hr [Nicoderm CQ] 1 patch TD DAILY #30 patch Thiamine [Vitamin B1 Tab] 100 mg PO DAILY #30 tab - Follow Up Plan Condition: GOOD Disposition: HOME/ ROUTINE Instructions: Asthma in Adults Additional Instructions: follow up at Dr. Stroud's office to get Inguinal hernia repair to prevent pain. [facility] Drug Rehab program as outpt: Aristides Negron at [address] [address] Referrals: [facility] [place] [Outside] Dameon Stroud MD [Staff Provider] -
== END 2018-02-25 12:55 | disposition home or self-care (01) | DRG 917 ==
LOC: H.ER 01:32 → H.ERHOLD 05:11 → OBSVTOIN 09:21 → H.ICU/CCU 11:56 → H.MEDSURG1 02-24 16:35
PROVIDERS: ADMIT Internal Medicine; ATTEND Internal Medicine
PROC: 0BH17EZ Insertion of Endotracheal Airway into Trachea, Via Natural or Artificial Opening (ICD-10-PCS; 2018-02-19)
PROC: 5A1955Z Respiratory Ventilation, Greater than 96 Consecutive Hours (ICD-10-PCS; 2018-02-19)
PROC: 3E0234Z Introduction of Serum, Toxoid and Vaccine into Muscle, Percutaneous Approach (ICD-10-PCS; principal; 2018-02-23)
DX: T40.1X1A Poisoning by heroin, accidental (unintentional), initial encounter (principal); J96.01 Acute respiratory failure with hypoxia; G92 Toxic encephalopathy; E87.2 Acidosis; N17.9 Acute kidney failure, unspecified; M62.82 Rhabdomyolysis; J98.11 Atelectasis; J45.901 Unspecified asthma with (acute) exacerbation; T17.598A Other foreign object in bronchus causing other injury, initial encounter; E11.65 Type 2 diabetes mellitus with hyperglycemia; E87.5 Hyperkalemia; F17.210 Nicotine dependence, cigarettes, uncomplicated; F20.9 Schizophrenia, unspecified; Z23 Encounter for immunization; K40.90 Unilateral inguinal hernia, without obstruction or gangrene, not specified as recurrent; F11.10 Opioid abuse, uncomplicated; F14.10 Cocaine abuse, uncomplicated; F16.10 Hallucinogen abuse, uncomplicated; T40.5X1A Poisoning by cocaine, accidental (unintentional), initial encounter; T40.991A Poisoning by other psychodysleptics [hallucinogens], accidental (unintentional), initial encounter; T38.0X5A Adverse effect of glucocorticoids and synthetic analogues, initial encounter; E87.6 Hypokalemia; R00.1 Bradycardia, unspecified

== ENCOUNTER 2018-03-04 06:24 | Emergency (ER) | payer MEDICAID, OTHER ==
[2018-03-04 06:24] VITALS: BMI 21.1
[2018-03-04 08:01] LABS: BASO % 0.5 % (0.0-2.0); EOS # 0.2 K/uL (0.0-0.7); EOS % 2.8 % (0.0-4.0); HEMOGLOBIN 11.9 g/dL (12.0-18.0); LYMPH # 1.5 K/uL (1.0-4.3); LYMPH % 18.5 % (20.0-40.0); MEAN CELL VOLUME 93.3 fl (80.0-94.0); MEAN CORPUSCULAR HEMOGLOBIN 31.5 pg (27.0-31.0); MEAN CORPUSCULAR HGB CONC 33.8 g/dL (33.0-37.0); MEAN PLATELET VOLUME 8.3 fl (7.2-11.7); MONO # 1.1 K/uL (0.0-0.8); MONO % 14.2 % (0.0-10.0); NEUT # 5.1 K/uL (1.8-7.0); RBC 3.79 Mil/uL (4.40-5.90); RED CELL DISTRIBUTION WIDTH 13.9 % (11.5-14.5)
[2018-03-04 08:16] LABS: BLOOD UREA NITROGEN 13 mg/dl (9-20); CALCIUM 9.2 mg/dL (8.4-10.2); GFR AFRICAN-AMERICAN > 60; GFR NON-AFRICAN AMERICAN > 60
--- NOTE | 2018-03-04 08:26 | ED PDOC ---
HPI: Psych/Substance Abuse Time Seen by Provider: 03/04/18 07:10 Chief Complaint (Nursing): Substance Abuse Chief Complaint (Provider): Aggressive behavior History Per: Patient, EMS History/Exam Limitations: clinical condition Onset/Duration Of Symptoms: Days (today) Additional Complaint(s): Pt. found walking around on the street so brought to the ER. Pt. denies any pain. Is talking in tangents about different things and not answering questions directly. Walking around in the room moving all extremities. Past Medical History Reviewed: Historical Data, Nursing Documentation, Vital Signs Vital Signs: Last Vital Signs Temp 99.0 F 03/04/18 06:31 Pulse 106 H 03/04/18 07:30 Resp 18 03/04/18 07:30 BP 146/84 03/04/18 07:30 Pulse Ox 95 03/04/18 07:30 - Medical History PMH: Asthma, Schizophrenia Denies: Hepatitis, HIV, HTN, Chronic Kidney Disease, Seizures, Sexually Transmitted Disease - Surgical History Surgical History: Hernia Repair (inguinal) - Family History Family History: States: Unknown Family Hx - Immunization History Hx Tetanus Toxoid Vaccination: No (unrecall) - Home Medications Home Medications: Ambulatory Orders Medication Instructions Recorded Albuterol HFA [Ventolin HFA 90 1 puff PO Q6 PRN 02/19/18 mcg/actuation (8 g)] Acetaminophen [Tylenol 325mg tab] 650 mg PO Q6 PRN tab 02/25/18 Methylprednisolone [Medrol Dose 4 mg PO ASDIR #21 mg 02/25/18 Pack (21 tabs)] Nicotine 14 mg/24 hr [Nicoderm CQ] 1 patch TD DAILY #30 patch 02/25/18 Thiamine [Vitamin B1 Tab] 100 mg PO DAILY #30 tab 02/25/18 - Allergies Allergies/Adverse Reactions: Allergies Allergy/AdvReac Type Severity Reaction Status Date / Time No Known Allergies Allergy Verified 09/26/16 13:28 Review of Systems Review Of Systems: ROS cannot be obtained secondary to pt's inabilty to answer questions. Physical Exam - Reviewed Nursing Documentation Reviewed: Yes Vital Signs Reviewed: Yes - Physical Exam Appears: Positive for: Uncomfortable Head Exam: Positive for: ATRAUMATIC, NORMAL INSPECTION, NORMOCEPHALIC Skin: Positive for: Normal Color, Warm, DRY Eye Exam: Positive for: Normal appearance, EOMI, PERRL ENT: Positive for: Normal ENT Inspection Neck: Positive for: Normal, Painless ROM, Supple Cardiovascular/Chest: Positive for: Regular Rate, Rhythm Respiratory: Positive for: CNT, Normal Breath Sounds Gastrointestinal/Abdominal: Positive for: Normal Exam, Soft. Negative for: Tenderness Back: Positive for: Normal Inspection. Negative for: L CVA Tenderness, R CVA Tenderness Extremity: Positive for: Normal ROM. Negative for: Tenderness, Pedal Edema Neurologic/Psych: Positive for: Alert, Other (not cooperative; not cooperative; walking around room and yelling different things). Negative for: Motor/Sensory Deficits, Aphasia - Laboratory Results Result Diagrams: 03/04/18 07:45 03/04/18 07:45 Interpretation Of Abn Labs: 3.3 k - ECG ECG: Positive for: Interpreted By Me, Viewed By Me Interpretation Of Abn EKG: EKG 1: qtc 523. EKG 2: qtc 479 O2 Sat by Pulse Oximetry: 95 Pulse Ox Interpretation: Normal - Progress ED Course And Treament: 800: Pt. very aggressive and threat to staff and self. Possible drugs induced psychosis. Will give haldol, ativan, restraints. 1245: Stable. Resting. Vitals maintained. 1500: Dr. Flaherty to take over care. Disposition - Clinical Impression Clinical Impression: Substance abuse, Psychosis - Patient ED Disposition Is Patient to be Admitted: Transfer of Care - Disposition Disposition Time: 15:15 Condition: FAIR Patient Signed Over To: Rossi Flaherty
[2018-03-04] MEDS ORDERED: Potassium Chloride 20 mEq ER Tab PO ONE (12:58)
--- NOTE | 2018-03-04 14:16 | CARD ---
APPROVED REPORT EKG Measurement Heart [id number] <Conclusion> Normal sinus rhythm Normal ECG
[2018-03-04 15:06] VITALS: TEMP 98.9
--- NOTE | 2018-03-04 15:09 | ED PDOC ---
- Laboratory Results Result Diagrams: 03/04/18 07:45 03/04/18 07:45 - ECG O2 Sat by Pulse Oximetry: 99 - Progress ED Course And Treament: 3p Rec'd endorsement from Dr Thornton. Pt arrived in acute violent psychosis requiring medication and restraints for safety. Drug intoxication suspected from presentation and patient prior visits. Pending sobriety. 420p On reeval pt awake, ambulating without difficulty, no signs of withdrawal, alert and oriented. Denies suicidal or homicidal ideations, Denies hallucinations. Eager to be discharged. Drug addiction resources provided. Disposition - Clinical Impression Clinical Impression: Substance abuse, Psychosis - POA Present On Arrival: None - Disposition Referrals: [facility] [Outside] [facility] [[facility]] Disposition: Routine/Home Disposition Time: 16:29 Condition: IMPROVED Instructions: Drug Abuse and Drug Addiction (DC)
--- NOTE | 2018-03-04 16:05 | CARD ---
APPROVED REPORT EKG Measurement Heart [id number] <Conclusion> Sinus tachycardia Nonspecific T wave abnormality Prolonged QT Abnormal ECG
[2018-03-04 17:20] VITALS: BP 116/72; PULSE 87; RESP 16; O2SAT 98
== END 2018-03-04 17:20 | disposition home or self-care (01) ==
LOC: H.ER 06:24
DX: F19.10 Other psychoactive substance abuse, uncomplicated (principal); F29 Unspecified psychosis not due to a substance or known physiological condition; F20.9 Schizophrenia, unspecified; J45.909 Unspecified asthma, uncomplicated
CPT/HCPCS: 80048; 80320; 85025; 93005; 96372; 99284; J1630; J2060

== ENCOUNTER 2018-03-20 19:14 | Emergency (ER) | payer MEDICAID ==
[2018-03-20 19:14] VITALS: BMI 21.1
--- NOTE | 2018-03-20 20:27 | ED PDOC ---
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 He reports walking down stairs when he slipped on a wet step and hit his head, incurring a small laceration on his forehead. He states he suffered brief LOC. Despite hip and knee injuries he is still able to ambulate. Patient denies nausea, vomiting, associated alcohol use , any other injuries or medical complaints. PMD: Dr. Sheila Mazariegos - Fall Fall:Prior To Injury: Slipped (on wet step) Past Medical History Reviewed: Historical Data, Nursing Documentation, Vital Signs Vital Signs: Last Vital Signs Temp 98.3 F 03/20/18 19:25 Pulse 102 H 03/20/18 19:25 Resp 18 03/20/18 19:25 BP 132/83 03/20/18 19:25 Pulse Ox 96 03/20/18 19:25 - Medical History PMH: Asthma, Diabetes, Schizophrenia Denies: Hepatitis, HIV, HTN, Chronic Kidney Disease, Seizures, Sexually Transmitted Disease - Surgical History Surgical History: Hernia Repair (inguinal) - Family History Family History: States: Unknown Family Hx - Social History Current smoker - smoking cessation education provided: Yes (Heavy smoker) Ex-Smoker (has not smoked in the last 12 months): No Alcohol: Other (yes) Drugs: Other (PCP) - Immunization History Hx Tetanus Toxoid Vaccination: No (unrecall) - Home Medications Home Medications: Ambulatory Orders Medication Instructions Recorded Albuterol HFA [Ventolin HFA 90 1 puff PO Q6 PRN 02/19/18 mcg/actuation (8 g)] Acetaminophen [Tylenol 325mg tab] 650 mg PO Q6 PRN tab 02/25/18 Methylprednisolone [Medrol Dose 4 mg PO ASDIR #21 mg 02/25/18 Pack (21 tabs)] Nicotine 14 mg/24 hr [Nicoderm CQ] 1 patch TD DAILY #30 patch 02/25/18 Thiamine [Vitamin B1 Tab] 100 mg PO DAILY #30 tab 02/25/18 - Allergies Allergies/Adverse Reactions: Allergies Allergy/AdvReac Type Severity Reaction Status Date / Time No Known Allergies Allergy Verified 03/20/18 19:25 Review of Systems ROS Statement: Except As Marked, All Systems Reviewed And Found Negative Musculoskeletal: Positive for: Other (Right knee pain, left hip pain, and head laceration) Physical Exam - Reviewed Nursing Documentation Reviewed: Yes Vital Signs Reviewed: Yes - Physical Exam Appears: Positive for: Non-toxic, No Acute Distress Head Exam: Positive for: ATRAUMATIC, NORMOCEPHALIC Skin: Positive for: Normal Color, Warm, Dry Eye Exam: Positive for: Normal appearance, EOMI, PERRL Neck: Positive for: Normal, Painless ROM, Supple Comments: 1.5 cm linear laceration on mid forehead with no active bleeding - ECG O2 Sat by Pulse Oximetry: 96 (RA) Pulse Ox Interpretation: Normal Medical Decision Making Medical Decision Making: Time: 19:55 Initial Impression: 48 y/o male with head injury, knee pain, and hip pain s/p fall Initial Plan: --CT head w/o contrast --Knee 3 views --Right hip --Left hip Time: 21:28 FINDINGS: Limitations: This study is compromised by patient motion. Brain: Normal. No hemorrhage. No significant white matter disease. No edema. Ventricles: Normal. No ventriculomegaly. Bones/joints: Normal. No acute fracture. Sinuses: There is opacification of the ethmoid and sphenoid sinuses. Mastoid air cells: Normal as visualized. No mastoid effusion. Soft tissues: Normal. IMPRESSION: There are no acute concerning abnormalities. X Ray Hip: --no fractures or dislocation Time: 22:30 --Patient medically stable for discharge. Diagnosis forehead laceration, knee and hip contusions. Advised to follow up with PMD in 1-2 days. Scribe Attestation: Documented by Jayshree Galvan, acting as a scribe for Dmitry Morley MD Provider Scribe Attestation: All medical record entries made by the Scribe were at my direction and personally dictated by me. I have reviewed the chart and agree that the record accurately reflects my personal performance of the history, physical exam, medical decision making, and the department course for this patient. I have also personally directed, reviewed, and agree with the discharge instructions and disposition. Disposition - Clinical Impression Clinical Impression: Head injury, Forehead laceration, Contusion of hip, Strain of knee - Disposition Referrals: [facility] [Outside] Disposition: Routine/Home Disposition Time: 22:30 Condition: STABLE Instructions: Concussion in Adults, Laceration Repair With Glue (DC) Forms: [employer] (Micronesian)
[2018-03-20 23:14] VITALS: BP 133/76; PULSE 78; RESP 16; TEMP 98.2
[2018-03-21 05:37] VITALS: O2SAT 96
--- NOTE | 2018-03-21 09:45 | CT ---
PROCEDURE: CT HEAD WITHOUT CONTRAST. HISTORY: head injury COMPARISON: Noncontrast head CT dated 02/20/2018. TECHNIQUE: Axial computed tomography images were obtained through the head/brain without intravenous contrast. Radiation dose: Total exam DLP = 2062.94 mGy-cm. This CT exam was performed using one or more of the following dose reduction techniques: Automated exposure control, adjustment of the mA and/or kV according to patient size, and/or use of iterative reconstruction technique. FINDINGS: Motion artifacts limit this examination despite multiple series being obtained attempt to overcome the problem. HEMORRHAGE: No definitive intracranial hemorrhage. BRAIN: No definite mass effect or edema. Grossly normal appearing ventricular sulcal and cisternal spaces are suggested. No midline shift. No suspicious extra-axial fluid collection. Non artifact did sections demonstrate normal corticomedullary differentiation. VENTRICLES: Unremarkable. No hydrocephalus. CALVARIUM: No destructive bony lesion or definite displaced fracture identified including through the skullbase. PARANASAL SINUSES: Mild sinus disease identified affecting bilateral ethmoid and sphenoid sinuses as well as left frontal sinus. MASTOID AIR CELLS: Unremarkable as visualized. No inflammatory changes. OTHER FINDINGS: None. IMPRESSION: Motion artifacts degrade the quality of the examination significantly. No definitive intracranial hemorrhage or mass-effect is identified. No displaced fracture identified. Concordant preliminary report from [facility], 03/20/2018.
--- NOTE | 2018-03-21 10:58 | RAD ---
PROCEDURE: LEFT HIP WITH PELVIS RADIOGRAPHS HISTORY: fall COMPARISON: Abdomen pelvis CT with contrast 09/13/2016. TECHNIQUE: Frontal views of the pelvis and left hip joint of been submitted for interpretation as well as frog-leg lateral view left hip. FINDINGS: No acute fracture or dislocation identified involving the left hip joint with limited degenerative articular cortical sclerosis at the weight-bearing portion of the left acetabulum. Local soft tissues appear unremarkable. No destructive bony lesion identified. Similarly, the pelvic ring is intact without fracture or destructive bony lesion identified. Sacroiliac joints appear unremarkable and similar degenerative changes are at the right hip are identified as compared to the left. A small, stable nonaggressive cyst is suggested at the proximal right femoral neck. Pubic symphysis is intact. IMPRESSION: No acute fracture or dislocation left hip joint. No fracture through the bony pelvis either. Limited degenerative changes seen the bilateral hip joints. Incidental stable, nonaggressive cyst proximal right femur.
--- NOTE | 2018-03-21 11:05 | RAD ---
PROCEDURE: Right Knee Radiographs. HISTORY: fall COMPARISON: None. FINDINGS: BONES: No acute fracture or destructive bony lesion identified. JOINTS: No subluxation or dislocation identified. Joint space narrowing at the medial and patellofemoral greater than lateral femorotibial compartment is identified compatible with degenerative joint disease. No osteophyte development is apparent at this time. Limited cortical sclerosis appreciate all 3 joint compartments. JOINT EFFUSION: Borderline suprapatellar bursa effusion identified. OTHER FINDINGS: None. IMPRESSION: Borderline suprapatellar bursa effusion identified. No acute fracture or dislocation. Limited degenerative joint changes noted.
== END 2018-03-20 22:40 | disposition home or self-care (01) ==
LOC: H.ER 19:14
DX: S09.90XA Unspecified injury of head, initial encounter (principal); S01.81XA Laceration without foreign body of other part of head, initial encounter; S70.02XA Contusion of left hip, initial encounter; S80.01XA Contusion of right knee, initial encounter; W10.9XXA Fall (on) (from) unspecified stairs and steps, initial encounter; Y92.89 Other specified places as the place of occurrence of the external cause; E11.9 Type 2 diabetes mellitus without complications; F20.9 Schizophrenia, unspecified

== ENCOUNTER 2018-03-24 19:01 | Emergency (ER) | payer MEDICAID ==
[2018-03-24 19:02] VITALS: BMI 21.1
--- NOTE | 2018-03-24 19:16 | ED PDOC ---
HPI: General Adult Time Seen by Provider: 03/24/18 19:13 Chief Complaint (Nursing): Medical Clearance Chief Complaint (Provider): Denies complaint History Per: Patient History/Exam Limitations: no limitations Onset/Duration Of Symptoms: Days Have you had recent travel within the past 21 days to any of the following countries: [place], [place], [place] or [place]?: No Additional Complaint(s): 48 yo male with right femoral hernia presents with HPD for evaluation. PT states he has some pain in the right groin which has been going on for a while. Pt denies new or worsening pain today. Pt states he is able to reduce hernia. Pt denies SI/HI. Pt calm and cooperative in ER. Past Medical History Reviewed: Historical Data, Nursing Documentation, Vital Signs Vital Signs: Last Vital Signs Temp 97.9 F 03/24/18 19:04 Pulse 73 03/24/18 19:04 Resp 18 03/24/18 19:04 BP 130/73 03/24/18 19:04 Pulse Ox 98 03/24/18 19:04 - Medical History PMH: Asthma, Diabetes, Schizophrenia Denies: Hepatitis, HIV, HTN, Chronic Kidney Disease, Seizures, Sexually Transmitted Disease - Surgical History Surgical History: Hernia Repair (inguinal) - Family History Family History: States: Unknown Family Hx - Immunization History Hx Tetanus Toxoid Vaccination: No (unrecall) - Home Medications Home Medications: Ambulatory Orders Medication Instructions Recorded Albuterol HFA [Ventolin HFA 90 1 puff PO Q6 PRN 02/19/18 mcg/actuation (8 g)] Acetaminophen [Tylenol 325mg tab] 650 mg PO Q6 PRN tab 02/25/18 Methylprednisolone [Medrol Dose 4 mg PO ASDIR #21 mg 02/25/18 Pack (21 tabs)] Nicotine 14 mg/24 hr [Nicoderm CQ] 1 patch TD DAILY #30 patch 02/25/18 Thiamine [Vitamin B1 Tab] 100 mg PO DAILY #30 tab 02/25/18 - Allergies Allergies/Adverse Reactions: Allergies Allergy/AdvReac Type Severity Reaction Status Date / Time No Known Allergies Allergy Verified 03/20/18 19:25 Physical Exam - Reviewed Nursing Documentation Reviewed: Yes Vital Signs Reviewed: Yes - Physical Exam Appears: Positive for: Well, Non-toxic, No Acute Distress Head Exam: Positive for: ATRAUMATIC, NORMAL INSPECTION, NORMOCEPHALIC Skin: Positive for: Normal Color, Warm, DRY Eye Exam: Positive for: Normal appearance ENT: Positive for: Normal ENT Inspection Neck: Positive for: Normal, Painless ROM Cardiovascular/Chest: Positive for: Regular Rate, Rhythm Respiratory: Positive for: CNT, Normal Breath Sounds Gastrointestinal/Abdominal: Positive for: Soft, Hernia (Right femoral ). Negative for: Normal Exam Back: Positive for: Normal Inspection Extremity: Positive for: Normal ROM Neurologic/Psych: Positive for: Alert, Oriented - ECG O2 Sat by Pulse Oximetry: 98 Medical Decision Making Medical Decision Making: Hernia easily reduced with light palpation. Tylenol given for hernia discomfort. Disposition - Clinical Impression Clinical Impression: Hernia - Patient ED Disposition Is Patient to be Admitted: No Counseled Patient/Family Regarding: Diagnosis, Need For Followup, Rx Given - Disposition Disposition: Routine/Home Disposition Time: 19:17 Condition: GOOD Additional Instructions: Pt is medically and psychiatrically cleared for incarceration. Please follow-up with surgeon. Instructions: General (DC), Abdominal Hernia (DC)
[2018-03-24 19:45] VITALS: BP 145/68; PULSE 74; RESP 16; TEMP 98.5; O2SAT 97
== END 2018-03-24 19:41 ==
LOC: H.ER 19:01
DX: K41.90 Unilateral femoral hernia, without obstruction or gangrene, not specified as recurrent (principal); E11.9 Type 2 diabetes mellitus without complications; F20.9 Schizophrenia, unspecified; J45.909 Unspecified asthma, uncomplicated

== ENCOUNTER 2018-03-24 23:33 | Emergency (ER) | payer MEDICAID ==
[2018-03-24 23:33] VITALS: BMI 21.1
[2018-03-24 23:37] VITALS: BP 124/63; PULSE 69; RESP 17; TEMP 98; O2SAT 100
--- NOTE | 2018-03-24 23:50 | ED PDOC ---
HPI: Psych/Substance Abuse Time Seen by Provider: 03/24/18 23:41 Chief Complaint (Nursing): Medical Clearance History Per: Patient History/Exam Limitations: no limitations Additional Complaint(s): Patient was brought back to ER for under police custody for concern of drug withdrawal. Patient admits to opiate abuse, however has no complaints. States no abdominal pain, no nausea, vomiting, diarrhea, palpitations, chest pain, piloerection, or any other complaints. Of note, patient had a hernia that was reduced earlier today. Past Medical History Reviewed: Historical Data, Nursing Documentation, Vital Signs Vital Signs: Last Vital Signs Temp 98.0 F 03/24/18 23:35 Pulse 69 03/24/18 23:35 Resp 17 03/24/18 23:35 BP 124/63 03/24/18 23:35 Pulse Ox 100 03/24/18 23:35 - Medical History PMH: Asthma, Diabetes, Schizophrenia Denies: Hepatitis, HIV, HTN, Chronic Kidney Disease, Seizures, Sexually Transmitted Disease - Surgical History Surgical History: Hernia Repair (inguinal) - Family History Family History: States: Unknown Family Hx - Immunization History Hx Tetanus Toxoid Vaccination: No (unrecall) - Home Medications Home Medications: Ambulatory Orders Medication Instructions Recorded Albuterol HFA [Ventolin HFA 90 1 puff PO Q6 PRN 02/19/18 mcg/actuation (8 g)] Acetaminophen [Tylenol 325mg tab] 650 mg PO Q6 PRN tab 02/25/18 Methylprednisolone [Medrol Dose 4 mg PO ASDIR #21 mg 02/25/18 Pack (21 tabs)] Nicotine 14 mg/24 hr [Nicoderm CQ] 1 patch TD DAILY #30 patch 02/25/18 Thiamine [Vitamin B1 Tab] 100 mg PO DAILY #30 tab 02/25/18 - Allergies Allergies/Adverse Reactions: Allergies Allergy/AdvReac Type Severity Reaction Status Date / Time No Known Allergies Allergy Verified 03/20/18 19:25 Review of Systems ROS Statement: Except As Marked, All Systems Reviewed And Found Negative Physical Exam - Reviewed Nursing Documentation Reviewed: Yes Vital Signs Reviewed: Yes - Physical Exam Appears: Positive for: Well (Appears under the influence, however alert and responsive, conversive), Non-toxic, No Acute Distress Head Exam: Positive for: ATRAUMATIC, NORMAL INSPECTION, NORMOCEPHALIC Skin: Positive for: Normal Color, Warm, DRY Eye Exam: Positive for: EOMI, Normal appearance, PERRL ENT: Positive for: Normal ENT Inspection Neck: Positive for: Normal, Painless ROM Cardiovascular/Chest: Positive for: Regular Rate, Rhythm Respiratory: Positive for: CNT, Normal Breath Sounds Gastrointestinal/Abdominal: Positive for: Normal Exam, Soft. 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 Negative for: Motor/Sensory Deficits - ECG O2 Sat by Pulse Oximetry: 100 Pulse Ox Interpretation: Normal Medical Decision Making Medical Decision Making: At this time, the patient does appear to be under the influence of drugs, however patient is breathing normally, alert, oriented, walking with steady gait. Furthermore, patient has absolutely no signs of withdrawal, therefore nothing to treat at this time. Patient is medically and psychiatrically cleared for incarceration. Disposition - Clinical Impression Clinical Impression: Substance abuse - Patient ED Disposition Is Patient to be Admitted: No - Disposition Referrals: [facility] [Outside] Disposition: Discharged/Transfer to Law Enforcement Disposition Time: 23:45 Condition: IMPROVED Additional Instructions: PATIENT HAS NO SIGNS NOR SYMPTOMS OF DRUG WITHDRAWAL. Patient is medically and psychiatrically cleared for incarceration. Instructions: Drug Abuse and Drug Addiction (DC) Forms: [employer] (Iranian)
== END 2018-03-24 23:53 ==
LOC: H.ER 23:33
DX: F11.10 Opioid abuse, uncomplicated (principal)

== ENCOUNTER 2018-09-08 04:51 | Emergency (ER) | payer MEDICAID, OTHER ==
[2018-09-08 04:51] VITALS: BMI 21.1
[2018-09-08 05:17] VITALS: BP 129/86; PULSE 86; RESP 16; TEMP 98; O2SAT 98
--- NOTE | 2018-09-08 05:31 | ED PDOC ---
History of Present Illness History of Present Illness: 48 years old homeless male with history of asthma, COPD and substance abuse presents to ER for evaluation of hiccups onset 2 hours. Patient reports having some pain in back from recurrent hiccups. He is requesting to be given juice. Patient denies nausea, vomiting, chest pain or shortness of breath. PMD: non provided HPI: Influenza Time Seen by Provider: 09/08/18 05:07 Chief Complaint: Cough, Cold, Congestion Chief Complaint (Provider): Cough, Cold, Congestion History Per: Patient Exam Limitations: no limitations Onset/Duration Of Symptoms: Hrs (x2) Symptoms include: denies: vomiting, chest pain Past Medical History Reviewed: Historical Data, Nursing Documentation, Vital Signs Vital Signs: Last Vital Signs Temp 98.0 F 09/08/18 05:15 Pulse 86 09/08/18 05:15 Resp 16 09/08/18 05:15 BP 129/86 09/08/18 05:15 Pulse Ox 98 09/08/18 05:15 - Medical History PMH: Asthma, COPD, Diabetes, Schizophrenia Denies: Hepatitis, HIV, HTN, Chronic Kidney Disease, Seizures, Sexually Transmitted Disease - Surgical History Surgical History: Hernia Repair (inguinal) - Family History Family History: States: Unknown Family Hx - Social History Current smoker - smoking cessation education provided: Yes Alcohol: Social Drugs: Other (PCP) - Immunization History Hx Tetanus Toxoid Vaccination: No (unrecall) - Home Medications Home Medications: Ambulatory Orders Medication Instructions Recorded Albuterol HFA [Ventolin HFA 90 1 puff PO Q6 PRN 02/19/18 mcg/actuation (8 g)] Acetaminophen [Tylenol 325mg tab] 650 mg PO Q6 PRN tab 02/25/18 Methylprednisolone [Medrol Dose 4 mg PO ASDIR #21 mg 02/25/18 Pack (21 tabs)] Nicotine 14 mg/24 hr [Nicoderm CQ] 1 patch TD DAILY #30 patch 02/25/18 Thiamine [Vitamin B1 Tab] 100 mg PO DAILY #30 tab 02/25/18 - Allergies Allergies/Adverse Reactions: Allergies Allergy/AdvReac Type Severity Reaction Status Date / Time No Known Allergies Allergy Verified 03/20/18 19:25 Review of Systems ROS Statement: Except As Marked, All Systems Reviewed And Found Negative Constitutional: Positive for: Other (Hiccups) Cardiovascular: Negative for: Chest Pain Respiratory: Negative for: Shortness of Breath Gastrointestinal: Negative for: Nausea, Vomiting Physical Exam - Reviewed Nursing Documentation Reviewed: Yes Vital Signs Reviewed: Yes - Physical Exam Appears: Positive for: Non-toxic, No Acute Distress Head Exam: Positive for: ATRAUMATIC, NORMOCEPHALIC Skin: Positive for: Normal Color, Warm, Dry Eye Exam: Positive for: Normal appearance, EOMI, PERRL ENT: Positive for: Normal ENT Inspection Neck: Positive for: Normal, Painless ROM, Supple Cardiovascular/Chest: Positive for: Regular Rate, Rhythm. Negative for: Murmur Respiratory: Positive for: Normal Breath Sounds. Negative for: Respiratory Distress Gastrointestinal/Abdominal: Positive for: Normal Exam, Soft. Negative for: Tenderness Back: Positive for: Normal Inspection. Negative for: L CVA Tenderness, R CVA Tenderness Extremity: Positive for: Normal ROM. Negative for: Pedal Edema, Deformity Neurologic/Psych: Positive for: Alert, Oriented (x3) Medical Decision Making Medical Decision Making: Time: 523 Initial impression: 48 y/o homeless male presents with hiccups --Patient given Thorazine injection 0530 --Patient is stable for discharge ----- Scribe Attestation: Documented by Leanne Rebolledo, acting as a scribe for Dmitry Morley MD. Provider Scribe Attestation: All medical record entries made by the Scribe were at my direction and personally dictated by me. I have reviewed the chart and agree that the record accurately reflects my personal performance of the history, physical exam, medical decision making, and the department course for this patient. I have also personally directed, reviewed, and agree with the discharge instructions and disposition. - ECG O2 Sat by Pulse Oximetry: 98 Disposition - Clinical Impression Clinical Impression: Hiccups - Patient ED Disposition Is Patient to be Admitted: No - Disposition Disposition: Routine/Home Disposition Time: 05:30 Condition: STABLE Instructions: Hiccups Forms: [email or web address] (Armenian)
== END 2018-09-08 06:05 | disposition home or self-care (01) ==
LOC: H.ER 04:51
DX: R06.6 Hiccough (principal); E11.9 Type 2 diabetes mellitus without complications; Z59.0 Homelessness
CPT/HCPCS: 96372; 99282; J3230

== ENCOUNTER 2018-10-20 03:22 | Emergency (ER) | payer MEDICAID ==
[2018-10-20 03:52] VITALS: BMI 27.3
[2018-10-20] MEDS ORDERED: Albuterol-Ipratrop 3 mg / 0.5 (3 ml) UD INH STA (03:52)
--- NOTE | 2018-10-20 04:01 | ED PDOC ---
HPI: SOB/CHF/COPD Time Seen by Provider: 10/20/18 03:53 Chief Complaint (Nursing): Shortness Of Breath Chief Complaint (Provider): Shortness Of Breath History Per: Patient History/Exam Limitations: no limitations Associated Symptoms: denies: Chest Pain, Productive Cough Additional Complaint(s): 48 years old male with history of asthma presents to ER for an evaluation of shortness of breath and wheezing. Patient is well known to provider for frequent visits to the ED. He reports he ran out of his inhaler and has been short of breath. He denies productive cough, chest pain, nausea, vomiting and diarrhea. PMD: None provided Past Medical History Reviewed: Historical Data, Nursing Documentation, Vital Signs Vital Signs: Last Vital Signs Temp 98.8 F 10/20/18 03:40 Pulse 118 H 10/20/18 03:40 Resp 19 10/20/18 03:40 BP 104/68 10/20/18 03:40 Pulse Ox 90 L 10/20/18 03:40 - Medical History PMH: Asthma, COPD, Diabetes, Schizophrenia Denies: Hepatitis, HIV, HTN, Chronic Kidney Disease, Seizures, Sexually Transmitted Disease - Surgical History Surgical History: Hernia Repair (inguinal) - Family History Family History: States: Unknown Family Hx - Social History Current smoker - smoking cessation education provided: Yes Alcohol: None Drugs: Denies - Immunization History Hx Tetanus Toxoid Vaccination: No (unrecall) - Home Medications Home Medications: Ambulatory Orders Medication Instructions Recorded Albuterol HFA [Ventolin HFA 90 1 puff PO Q6 PRN 02/19/18 mcg/actuation (8 g)] Acetaminophen [Tylenol 325mg tab] 650 mg PO Q6 PRN tab 02/25/18 Methylprednisolone [Medrol Dose 4 mg PO ASDIR #21 mg 02/25/18 Pack (21 tabs)] Nicotine 14 mg/24 hr [Nicoderm CQ] 1 patch TD DAILY #30 patch 02/25/18 Thiamine [Vitamin B1 Tab] 100 mg PO DAILY #30 tab 02/25/18 Albuterol HFA [Ventolin HFA 90 1 - 2 puff IH Q6 PRN #1 inhaler 10/20/18 mcg/actuation (8 g)] predniSONE [predniSONE Tab] 60 mg PO QAM #12 tab 10/20/18 - Allergies Allergies/Adverse Reactions: Allergies Allergy/AdvReac Type Severity Reaction Status Date / Time No Known Allergies Allergy Verified 03/20/18 19:25 Review of Systems ROS Statement: Except As Marked, All Systems Reviewed And Found Negative Cardiovascular: Negative for: Chest Pain Respiratory: Positive for: Shortness of Breath, Wheezing. Negative for: Cough (productive) Gastrointestinal: Negative for: Nausea, Vomiting, Diarrhea Physical Exam - Reviewed Nursing Documentation Reviewed: Yes Vital Signs Reviewed: Yes - Physical Exam Appears: Positive for: Well, No Acute Distress Head Exam: Positive for: ATRAUMATIC, NORMOCEPHALIC Skin: Positive for: Normal Color, Warm, Dry Eye Exam: Positive for: Normal appearance, EOMI, PERRL Neck: Positive for: Normal, Painless ROM, Supple Cardiovascular/Chest: Positive for: Regular Rate, Rhythm. Negative for: Murmur Respiratory: Positive for: Wheezing (bilateral expiratory ), Other (Decreased air entry) Gastrointestinal/Abdominal: Positive for: Normal Exam, Soft. Negative for: Tenderness Back: Positive for: Normal Inspection. Negative for: L CVA Tenderness, R CVA Tenderness Extremity: Positive for: Normal ROM. Negative for: Pedal Edema, Swelling Neurologic/Psych: Positive for: Alert, Oriented (x3) - ECG O2 Sat by Pulse Oximetry: 90 (RA) Pulse Ox Interpretation: Abnormal Medical Decision Making Medical Decision Making: Time: 351 Initial Impression: 48 years old male presents with asthma exacerbation Initial Plan: --EKG --Duoneb --predinsone --Peak flow pre/post treatment 0535 Patient reports improvement in symptoms and is stable for discharge Clinical impression: asthma exacerbation Scribe Attestation: Documented by Leanne Rebolledo, acting as a scribe Dmitry Morley MD. Provider Scribe Attestation: All medical record entries made by the Scribe were at my direction and personally dictated by me. I have reviewed the chart and agree that the record accurately reflects my personal performance of the history, physical exam, medical decision making, and the department course for this patient. I have also personally directed, reviewed, and agree with the discharge instructions and disposition. Disposition - Clinical Impression Clinical Impression: Asthma - Patient ED Disposition Is Patient to be Admitted: No - Disposition Disposition: Routine/Home Disposition Time: 05:35 Condition: STABLE Prescriptions: Albuterol HFA [Ventolin HFA 90 mcg/actuation (8 g)] 1 - 2 puff IH Q6 PRN #1 inhaler PRN Reason: Shortness Of Breath predniSONE [predniSONE Tab] 60 mg PO QAM #12 tab Instructions: Asthma in Adults Forms: [employer] (Polish)
[2018-10-20 04:05] VITALS: RESP 20
[2018-10-20 05:41] VITALS: BP 108/69; PULSE 94; TEMP 98.4; O2SAT 96
--- NOTE | 2018-10-20 13:49 | CARD ---
APPROVED REPORT Date of service: 10/20/2018 EKG Measurement Heart [id number] <Conclusion> Normal sinus rhythm Normal ECG
== END 2018-10-20 05:41 | disposition home or self-care (01) ==
LOC: H.ER 03:22
DX: J45.909 Unspecified asthma, uncomplicated (principal); E11.9 Type 2 diabetes mellitus without complications; J44.9 Chronic obstructive pulmonary disease, unspecified; F20.9 Schizophrenia, unspecified; F17.200 Nicotine dependence, unspecified, uncomplicated; Z79.899 Other long term (current) drug therapy

== ENCOUNTER 2018-10-25 04:42 | Emergency (ER) | payer MEDICAID ==
[2018-10-25 04:42] VITALS: BMI 27.3
[2018-10-25 05:22] VITALS: BP 113/65; PULSE 87; RESP 16; TEMP 97.8; O2SAT 97
--- NOTE | 2018-10-25 05:27 | ED PDOC ---
HPI: Skin/Bite Injury Time Seen by Provider: 10/25/18 05:21 Chief Complaint (Nursing): Abnormal Skin Integrity Chief Complaint (Provider): rash History Per: Patient History/Exam Limitations: no limitations Onset/Duration Of Symptoms: Days Current Symptoms Are (Timing): Still Present Quality Of Symptoms: Other (burning) Additional Complaint(s): 48 y/o male presents to ED for evaluation of rash to bilateral thighs x 3 days. Patient is nondomicled and does a lot of walking. Denies fever, itching/pain at site, drainage from site. Past Medical History Reviewed: Historical Data, Nursing Documentation, Vital Signs Vital Signs: Last Vital Signs Temp 97.8 F 10/25/18 05:20 Pulse 87 10/25/18 05:20 Resp 16 10/25/18 05:20 BP 113/65 10/25/18 05:20 Pulse Ox 97 10/25/18 05:20 - Medical History PMH: Asthma, COPD, Diabetes, Schizophrenia Denies: Hepatitis, HIV, HTN, Chronic Kidney Disease, Seizures, Sexually Transmitted Disease - Surgical History Surgical History: Hernia Repair (inguinal) - Family History Family History: States: Unknown Family Hx - Immunization History Hx Tetanus Toxoid Vaccination: No (unrecall) - Home Medications Home Medications: Ambulatory Orders Medication Instructions Recorded Albuterol HFA [Ventolin HFA 90 1 puff PO Q6 PRN 02/19/18 mcg/actuation (8 g)] Acetaminophen [Tylenol 325mg tab] 650 mg PO Q6 PRN tab 02/25/18 Methylprednisolone [Medrol Dose 4 mg PO ASDIR #21 mg 02/25/18 Pack (21 tabs)] Nicotine 14 mg/24 hr [Nicoderm CQ] 1 patch TD DAILY #30 patch 02/25/18 Thiamine [Vitamin B1 Tab] 100 mg PO DAILY #30 tab 02/25/18 Albuterol HFA [Ventolin HFA 90 1 - 2 puff IH Q6 PRN #1 inhaler 10/20/18 mcg/actuation (8 g)] predniSONE [predniSONE Tab] 60 mg PO QAM #12 tab 10/20/18 Petrolatum,White [Petroleum Jelly] 1 applic TP BID PRN #1 tub 10/25/18 - Allergies Allergies/Adverse Reactions: Allergies Allergy/AdvReac Type Severity Reaction Status Date / Time No Known Allergies Allergy Verified 03/20/18 19:25 Review of Systems ROS Statement: Except As Marked, All Systems Reviewed And Found Negative Skin: Positive for: Rash Physical Exam - Reviewed Nursing Documentation Reviewed: Yes Vital Signs Reviewed: Yes - Physical Exam Appears: Positive for: Well, Non-toxic, No Acute Distress Head Exam: Positive for: ATRAUMATIC, NORMAL INSPECTION, NORMOCEPHALIC Skin: Positive for: Rash (dry skin with excoriations bilateral inner thighs; no lesions, warmth, drainage noted) Extremity: Positive for: Normal ROM - ECG O2 Sat by Pulse Oximetry: 97 - Progress ED Course And Treament: Patient educated on findings, discharged with rx petroleum jelly Advised to keep legs dry and wear moisture-wicking clothing Follow up PMD within 2-3 days Return precautions given Disposition - Clinical Impression Clinical Impression: Chafing - Patient ED Disposition Is Patient to be Admitted: No Counseled Patient/Family Regarding: Diagnosis, Need For Followup, Rx Given - Disposition Disposition: Routine/Home Disposition Time: 05:30 Condition: IMPROVED Prescriptions: Petrolatum,White [Petroleum Jelly] 1 applic TP BID PRN #1 tub PRN Reason: skin irritation Instructions: Dermatitis
== END 2018-10-25 06:06 | disposition home or self-care (01) ==
LOC: H.ER 04:42
DX: L30.4 Erythema intertrigo (principal); E11.9 Type 2 diabetes mellitus without complications

== ENCOUNTER 2018-12-02 05:08 | Emergency (ER) | payer MEDICAID ==
[2018-12-02 05:30] VITALS: BMI 25.8
[2018-12-02] MEDS ORDERED: Albuterol-Ipratrop 3 mg / 0.5 (3 ml) UD IH STA ×2 (05:30)
[2018-12-02 05:34] VITALS: BP 112/74; PULSE 100; TEMP 98; O2SAT 95
--- NOTE | 2018-12-02 05:37 | ED PDOC ---
HPI: SOB/CHF/COPD Time Seen by Provider: 12/02/18 05:30 Chief Complaint (Nursing): Respiratory Distress Chief Complaint (Provider): shortness of breath History Per: Patient History/Exam Limitations: no limitations Onset/Duration Of Symptoms: Hrs Current Symptoms Are (Timing): Still Present Additional Complaint(s): 48 y/o male history of asthma presents for evaluation of shortness of breath and wheezing x 3 hours. Patient states he ran out of his inhaler. Denies fever, chest pain, palpitations, leg pain/swelling Of note patient sitting in waiting room and decided to register after being asked to leave by security Past Medical History Reviewed: Historical Data, Nursing Documentation, Vital Signs - Medical History PMH: Asthma, COPD, Diabetes, Schizophrenia Denies: Hepatitis, HIV, HTN, Chronic Kidney Disease, Seizures, Sexually Transmitted Disease - Surgical History Surgical History: Hernia Repair (inguinal) - Family History Family History: States: Unknown Family Hx - Immunization History Hx Tetanus Toxoid Vaccination: No (unrecall) - Home Medications Home Medications: Ambulatory Orders Medication Instructions Recorded Albuterol HFA [Ventolin HFA 90 1 puff PO Q6 PRN 02/19/18 mcg/actuation (8 g)] Acetaminophen [Tylenol 325mg tab] 650 mg PO Q6 PRN tab 02/25/18 Methylprednisolone [Medrol Dose 4 mg PO ASDIR #21 mg 02/25/18 Pack (21 tabs)] Nicotine 14 mg/24 hr [Nicoderm CQ] 1 patch TD DAILY #30 patch 02/25/18 Thiamine [Vitamin B1 Tab] 100 mg PO DAILY #30 tab 02/25/18 Albuterol HFA [Ventolin HFA 90 1 - 2 puff IH Q6 PRN #1 inhaler 10/20/18 mcg/actuation (8 g)] predniSONE [predniSONE Tab] 60 mg PO QAM #12 tab 10/20/18 Petrolatum,White [Petroleum Jelly] 1 applic TP BID PRN #1 tub 10/25/18 Albuterol HFA [Ventolin HFA 90 1 puff IH Q4 PRN #1 inh 12/02/18 mcg/actuation (8 g)] Methylprednisolone [Medrol Dose 4 mg PO ASDIR #21 mg 12/02/18 Pack (21 tabs)] - Allergies Allergies/Adverse Reactions: Allergies Allergy/AdvReac Type Severity Reaction Status Date / Time No Known Allergies Allergy Verified 12/02/18 05:30 Review of Systems ROS Statement: Except As Marked, All Systems Reviewed And Found Negative Respiratory: Positive for: Shortness of Breath, Wheezing Physical Exam - Reviewed Nursing Documentation Reviewed: Yes Vital Signs Reviewed: Yes - Physical Exam Appears: Positive for: Well, Non-toxic, No Acute Distress Head Exam: Positive for: ATRAUMATIC, NORMAL INSPECTION, NORMOCEPHALIC Skin: Positive for: Normal Color Eye Exam: Positive for: Normal appearance ENT: Positive for: Normal ENT Inspection Cardiovascular/Chest: Positive for: Regular Rate, Rhythm Respiratory: Positive for: Rhonchi, Wheezing Gastrointestinal/Abdominal: Positive for: Normal Exam Back: Positive for: Normal Inspection Extremity: Positive for: Normal ROM Neurological/Psych: Positive for: Awake, Alert, Oriented - ECG ECG: Positive for: Viewed By Me (reviewed by ED attending) ECG Rhythm: Positive for: Sinus Rhythm - Progress ED Course And Treament: -ekg -duoneb x 2 On re-eval, patient states he is feeling better Patient educated on findings, discharged with rx Albuterol HFA, medrol dose luisa Advised follow up PMD within 2-3 days Patient requires no further intervention in the ED and is stable for discharge at is time Return precautions given Disposition - Clinical Impression Clinical Impression: Asthma - Patient ED Disposition Is Patient to be Admitted: No Counseled Patient/Family Regarding: Studies Performed, Diagnosis, Need For Followup, Rx Given - Disposition Referrals: [facility] [Outside] Disposition: Routine/Home Disposition Time: 06:00 Condition: IMPROVED Prescriptions: Albuterol HFA [Ventolin HFA 90 mcg/actuation (8 g)] 1 puff IH Q4 PRN #1 inh PRN Reason: Wheezing Methylprednisolone [Medrol Dose Pack (21 tabs)] 4 mg PO ASDIR #21 mg Instructions: Asthma in Adults
[2018-12-02] MEDS ORDERED: Albuterol-Ipratrop 3 mg / 0.5 (3 ml) UD ONE (05:39)
[2018-12-02 06:23] VITALS: RESP 15
--- NOTE | 2018-12-02 18:45 | CARD ---
APPROVED REPORT Date of service: 12/02/2018 EKG Measurement Heart [id number] <Conclusion> Normal sinus rhythm Normal ECG
== END 2018-12-02 06:25 | disposition home or self-care (01) ==
LOC: H.ER 05:08
DX: J44.9 Chronic obstructive pulmonary disease, unspecified (principal); E11.9 Type 2 diabetes mellitus without complications; Z86.59 Personal history of other mental and behavioral disorders; Z79.899 Other long term (current) drug therapy

== ENCOUNTER 2018-12-21 03:05 | Emergency (ER) | payer MEDICAID ==
[2018-12-21 03:05] VITALS: BMI 25.8
[2018-12-21 03:50] VITALS: RESP 16
[2018-12-21] MEDS ORDERED: Albuterol-Ipratrop 3 mg / 0.5 (3 ml) UD INH STA (03:57)
[2018-12-21] MEDS ORDERED: Albuterol-Ipratrop 3 mg / 0.5 (3 ml) UD ONE ×2 (04:20)
--- NOTE | 2018-12-21 04:30 | ED PDOC ---
HPI: SOB/CHF/COPD Time Seen by Provider: 12/21/18 03:57 Chief Complaint (Nursing): Cough, Cold, Congestion Chief Complaint (Provider): Cough, Cold, Congestion History Per: Patient History/Exam Limitations: no limitations Onset/Duration Of Symptoms: Persistent Current Symptoms Are (Timing): Still Present Additional Complaint(s): 48 years old male with history of asthma presents to ER for an evaluation of shortness of breath and wheezing. Patient is well known to provider for frequent visits to the ED. He reports he ran out of his inhaler and has been short of breath. He denies productive cough, chest pain, nausea, vomiting and diarrhea. PMD: None provided Past Medical History Reviewed: Historical Data, Nursing Documentation, Vital Signs Vital Signs: Last Vital Signs Temp 97.5 F L 12/21/18 03:47 Pulse 87 12/21/18 03:47 Resp 16 12/21/18 03:47 BP 118/80 12/21/18 03:47 Pulse Ox 96 12/21/18 03:47 - Medical History PMH: Asthma, COPD, Diabetes, Schizophrenia Denies: Hepatitis, HIV, HTN, Chronic Kidney Disease, Seizures, Sexually Transmitted Disease - Surgical History Surgical History: Hernia Repair (inguinal) - Family History Family History: States: Unknown Family Hx - Living Arrangements Living Arrangements: Other (homeless) - Social History Current smoker - smoking cessation education provided: Yes - Immunization History Hx Tetanus Toxoid Vaccination: No (unrecall) - Home Medications Home Medications: Ambulatory Orders Medication Instructions Recorded Albuterol HFA [Ventolin HFA 90 1 puff PO Q6 PRN 02/19/18 mcg/actuation (8 g)] Acetaminophen [Tylenol 325mg tab] 650 mg PO Q6 PRN tab 02/25/18 Methylprednisolone [Medrol Dose 4 mg PO ASDIR #21 mg 02/25/18 Pack (21 tabs)] Nicotine 14 mg/24 hr [Nicoderm CQ] 1 patch TD DAILY #30 patch 02/25/18 Thiamine [Vitamin B1 Tab] 100 mg PO DAILY #30 tab 02/25/18 Albuterol HFA [Ventolin HFA 90 1 - 2 puff IH Q6 PRN #1 inhaler 10/20/18 mcg/actuation (8 g)] predniSONE [predniSONE Tab] 60 mg PO QAM #12 tab 10/20/18 Petrolatum,White [Petroleum Jelly] 1 applic TP BID PRN #1 tub 10/25/18 Albuterol HFA [Ventolin HFA 90 1 puff IH Q4 PRN #1 inh 12/02/18 mcg/actuation (8 g)] Methylprednisolone [Medrol Dose 4 mg PO ASDIR #21 mg 12/02/18 Pack (21 tabs)] Albuterol HFA [Ventolin HFA 90 1 - 2 puff IH Q6 PRN #1 inhaler 12/21/18 mcg/actuation (8 g)] predniSONE [predniSONE Tab] 60 mg PO QAM #12 tab 12/21/18 - Allergies Allergies/Adverse Reactions: Allergies Allergy/AdvReac Type Severity Reaction Status Date / Time No Known Allergies Allergy Verified 12/02/18 05:30 Review of Systems ROS Statement: Except As Marked, All Systems Reviewed And Found Negative Respiratory: Positive for: Wheezing Physical Exam - Reviewed Nursing Documentation Reviewed: Yes Vital Signs Reviewed: Yes - Physical Exam Appears: Positive for: Well, Non-toxic, No Acute Distress Head Exam: Positive for: ATRAUMATIC, NORMAL INSPECTION, NORMOCEPHALIC Skin: Positive for: Normal Color, Warm, DRY Eye Exam: Positive for: EOMI, Normal appearance, PERRL ENT: Positive for: Normal ENT Inspection Neck: Positive for: Normal, Painless ROM Cardiovascular/Chest: Positive for: Regular Rate, Rhythm Respiratory: Positive for: Wheezing. Negative for: Respiratory Distress Gastrointestinal/Abdominal: Positive for: Normal Exam, Soft. Negative for: Tenderness Back: Positive for: Normal Inspection. Negative for: L CVA Tenderness Extremity: Positive for: Normal ROM. Negative for: Deformity Neurological/Psych: Positive for: Awake, Alert, Normal Tone, Oriented. Negative for: Motor/Sensory Deficits - ECG O2 Sat by Pulse Oximetry: 96 Medical Decision Making Medical Decision Making: Initial Impression: 48 years old male presents with asthma exacerbation Initial Plan: --EKG --Duoneb 9 ml INH --prednisone 60 mg PO --Peak flow pre/post treatment 0535 Patient reports improvement in symptoms and is stable for discharge Clinical impression: asthma exacerbation Scribe Attestation: Documented by Raeann Ochoa, acting as a scribe Hal Mroley MD Provider Scribe Attestation: All medical record entries made by the Scribe were at my direction and personally dictated by me. I have reviewed the chart and agree that the record accurately reflects my personal performance of the history, physical exam, medical decision making, and the department course for this patient. I have also personally directed, reviewed, and agree with the discharge instructions and disposition Disposition - Clinical Impression Clinical Impression: Asthma exacerbation - Patient ED Disposition Is Patient to be Admitted: No - Disposition Disposition: Routine/Home Disposition Time: 05:35 Condition: STABLE Prescriptions: Albuterol HFA [Ventolin HFA 90 mcg/actuation (8 g)] 1 - 2 puff IH Q6 PRN #1 inhaler PRN Reason: Shortness Of Breath predniSONE [predniSONE Tab] 60 mg PO QAM #12 tab Instructions: Asthma in Adults Forms: [employer] (Syrian)
[2018-12-21 05:16] VITALS: BP 123/66; PULSE 76; TEMP 97.9
[2018-12-21 06:02] VITALS: O2SAT 96
== END 2018-12-21 05:15 | disposition home or self-care (01) ==
LOC: H.ER 03:05
DX: J45.901 Unspecified asthma with (acute) exacerbation (principal); J44.9 Chronic obstructive pulmonary disease, unspecified; F17.200 Nicotine dependence, unspecified, uncomplicated; Z86.59 Personal history of other mental and behavioral disorders; E11.9 Type 2 diabetes mellitus without complications; Z79.899 Other long term (current) drug therapy

== ENCOUNTER 2018-12-25 07:03 | Emergency (ER) | payer MEDICAID ==
[2018-12-25 07:14] VITALS: RESP 18
[2018-12-25 07:18] VITALS: BMI 24.3
[2018-12-25] MEDS ORDERED: Tdap Vaccine 0.5 ml Vial (10-64 yrs) IM ONE ×2 (07:41→07:55)
[2018-12-25] MEDS ORDERED: Lidocaine/Epi 1% 1:100000 20 ML IJ STA (07:42)
--- NOTE | 2018-12-25 07:43 | ED PDOC ---
HPI: Trauma/Fall - HPI Time Seen by Provider: 12/25/18 07:08 Chief Complaint (Nursing): Trauma Chief Complaint (Provider): Trauma History Per: Patient History/Exam Limitations: no limitations Onset/Duration Of Symptoms: Unknown Associated Symptoms: Dizziness, LOC Additional Complaint(s): 48 y/o male with a PMHx of Asthma presents to the ED for evaluation of a head injury and facial laceration s/p trip and fall. Patient reports he was walking in his house when he tripped over a rug, hitting his coffee table. Patient states his housemates said he lost consciousness for about 10 minutes. At this time, patient notes of experiencing dizziness. Otherwise, patient denies alcohol or drug use, shortness of breath and taking any pain medications for symptom relief. PMD: no provider Past Medical History Reviewed: Historical Data, Nursing Documentation, Vital Signs Vital Signs: Last Vital Signs Temp 98.2 F 12/25/18 07:13 Pulse 97 H 12/25/18 07:13 Resp 18 12/25/18 07:13 BP 118/74 12/25/18 07:13 Pulse Ox 99 12/25/18 07:13 - Medical History PMH: Asthma, COPD, Diabetes, Schizophrenia Denies: Hepatitis, HIV, HTN, Chronic Kidney Disease, Seizures, Sexually Transmitted Disease - Surgical History Surgical History: Hernia Repair (inguinal) - Family History Family History: States: Unknown Family Hx - Living Arrangements Living Arrangements: With Friends/Others - Immunization History Hx Tetanus Toxoid Vaccination: No (unrecall) - Home Medications Home Medications: Ambulatory Orders Medication Instructions Recorded Albuterol HFA [Ventolin HFA 90 1 puff PO Q6 PRN 02/19/18 mcg/actuation (8 g)] Acetaminophen [Tylenol 325mg tab] 650 mg PO Q6 PRN tab 02/25/18 Methylprednisolone [Medrol Dose 4 mg PO ASDIR #21 mg 02/25/18 Pack (21 tabs)] Nicotine 14 mg/24 hr [Nicoderm CQ] 1 patch TD DAILY #30 patch 02/25/18 Thiamine [Vitamin B1 Tab] 100 mg PO DAILY #30 tab 02/25/18 Albuterol HFA [Ventolin HFA 90 1 - 2 puff IH Q6 PRN #1 inhaler 10/20/18 mcg/actuation (8 g)] predniSONE [predniSONE Tab] 60 mg PO QAM #12 tab 10/20/18 Petrolatum,White [Petroleum Jelly] 1 applic TP BID PRN #1 tub 10/25/18 Albuterol HFA [Ventolin HFA 90 1 puff IH Q4 PRN #1 inh 12/02/18 mcg/actuation (8 g)] Methylprednisolone [Medrol Dose 4 mg PO ASDIR #21 mg 12/02/18 Pack (21 tabs)] Albuterol HFA [Ventolin HFA 90 1 - 2 puff IH Q6 PRN #1 inhaler 12/21/18 mcg/actuation (8 g)] predniSONE [predniSONE Tab] 60 mg PO QAM #12 tab 12/21/18 - Allergies Allergies/Adverse Reactions: Allergies Allergy/AdvReac Type Severity Reaction Status Date / Time No Known Allergies Allergy Verified 12/02/18 05:30 Review of Systems ROS Statement: Except As Marked, All Systems Reviewed And Found Negative Musculoskeletal: Positive for: Other (head injury and facial laceration) Neurological: Positive for: Dizziness Physical Exam - Reviewed Nursing Documentation Reviewed: Yes Vital Signs Reviewed: Yes - Physical Exam Appears: Positive for: No Acute Distress Head Exam: Negative for: NORMAL INSPECTION (2 cm laceration noted above the right eyebrow with tenderness to palpation ) Skin: Positive for: Normal Color, Warm, Dry Eye Exam: Positive for: Normal appearance, EOMI, PERRL Neck: Positive for: Normal Cardiovascular/Chest: Positive for: Regular Rate, Rhythm. Negative for: Murmur Respiratory: Positive for: Normal Breath Sounds. Negative for: Respiratory Distress Gastrointestinal/Abdominal: Positive for: Normal Exam, Soft. Negative for: Tenderness Extremity: Positive for: Normal ROM Neurological/Psych: Positive for: Awake, Alert, Oriented. Negative for: Motor/Sensory Deficits - ECG O2 Sat by Pulse Oximetry: 99 (RA) Pulse Ox Interpretation: Normal Medical Decision Making Medical Decision Making: Time: 741 Impression: Head Injury and Facial laceration. Plan: -- CT Head w/o Contrast -- Urine Drug Screen -- Adacel (10-64 yrs) 0.5 ml IM -- Lidocaine/Epi 1:100,000 10 ml IJ -- Urinalysis -- Laceration Repair to be performed. Scribe Attestation: Documented by Diego Quarles, acting as a scribe Arlyn Drummond MD. Provider Scribe Attestation: All medical record entries made by the Scribe were at my direction and personally dictated by me. I have reviewed the chart and agree that the record accurately reflects my personal performance of the history, physical exam, medical decision making, and the department course for this patient. I have also personally directed, reviewed, and agree with the discharge instructions and disposition. Procedures - Laceration/Wound Repair Right Face Wound Length (cm): 2 Wound's Depth, Shape: superficial Wound Explored: clean Anesthesia: Lidocaine w/ Epi Wound Repaired With: Sutures Suture Size/Type: 4:0 Number of Sutures: 4 Wound Complexity: Simple Disposition - Clinical Impression Clinical Impression: Eyebrow laceration, Head injury - Patient ED Disposition Is Patient to be Admitted: No Doctor Will See Patient In The: Office Counseled Patient/Family Regarding: Diagnosis, Need For Followup - Disposition Referrals: [facility] [Outside] Disposition: Routine/Home Disposition Time: 08:37 Condition: STABLE Additional Instructions: Tetanus Booster (TdaP) given at this visit. Should last for 10 years. Instructions: Concussion, Adult (DC), Laceration Repair With Stitches (DC) Forms: [employer] (Kiswahili) - POA Present On Arrival: Falls Or Trauma
[2018-12-25] MEDS ORDERED: Lidocaine 1% w Epi 1:100,000 Inj ONE (07:48)
[2018-12-25 09:10] VITALS: BP 120/69; PULSE 71; TEMP 98; O2SAT 100
--- NOTE | 2018-12-25 09:34 | CT ---
Date of service: 12/25/2018 PROCEDURE: CT HEAD WITHOUT CONTRAST. HISTORY: head injury with laceration COMPARISON: Comparison made with scan of the brain 03/20/2018 TECHNIQUE: Axial computed tomography images were obtained through the head/brain without intravenous contrast. Radiation dose: Total exam DLP = 983.4 mGy-cm. This CT exam was performed using one or more of the following dose reduction techniques: Automated exposure control, adjustment of the mA and/or kV according to patient size, and/or use of iterative reconstruction technique. FINDINGS: HEMORRHAGE: No acute parenchymal, subarachnoid or extra-axial hemorrhage. BRAIN: No mass effect or edema. No atrophy or chronic microvascular ischemic changes. VENTRICLES: No obstructive hydrocephalus CALVARIUM: There is a linear lucency traversing the medial aspect of the anterior and posterior nguyen of the right frontal sinus immediately subjacent to a localize right frontal scalp contusion and laceration the latter of which is also inferred by the presence of small amount of subcutaneous air.. The lucency could conceivably represent a vascular groove however a nondisplaced fracture cannot be completely excluded. Follow-up CT scan of the maxillofacial skeleton may be prudent. PARANASAL SINUSES: There is complete opacification of the right chamber of the frontal sinus.. There is also partial opacification of multiple ethmoid air cells more so on the right side. The minor mucosal thickening present both maxillary antra left greater than right as well as less so within the left chamber of the sphenoid sinus. MASTOID AIR CELLS: Unremarkable as visualized. No inflammatory changes. OTHER FINDINGS: None. IMPRESSION: No acute intracranial There is a linear lucency traversing the medial aspect of the anterior and posterior nguyen of the right frontal sinus immediately subjacent to a localize right frontal scalp contusion and laceration the latter of which is also inferred by the presence of small amount of subcutaneous air.. The lucency could conceivably represent a vascular groove however nondisplaced fracture cannot be completely excluded.. Follow-up CT scan of the maxillofacial skeleton may be prudent.
== END 2018-12-25 09:09 | disposition home or self-care (01) ==
LOC: H.ER 07:03
DX: S01.119A Laceration without foreign body of unspecified eyelid and periocular area, initial encounter (principal); W01.190A Fall on same level from slipping, tripping and stumbling with subsequent striking against furniture, initial encounter; Y92.009 Unspecified place in unspecified non-institutional (private) residence as the place of occurrence of the external cause; Z23 Encounter for immunization; E11.9 Type 2 diabetes mellitus without complications; J44.9 Chronic obstructive pulmonary disease, unspecified; Z86.59 Personal history of other mental and behavioral disorders; S09.90XA Unspecified injury of head, initial encounter

== ENCOUNTER 2019-01-05 04:36 | Emergency (ER) | payer MEDICAID ==
[2019-01-05 05:21] VITALS: BMI 23.6
[2019-01-05 05:26] VITALS: BP 123/78; PULSE 106; RESP 18; TEMP 98.9; O2SAT 92
[2019-01-05] MEDS ORDERED: Lidocaine 1% w Epi 1:100,000 Inj ONE (05:59)
--- NOTE | 2019-01-05 06:28 | ED PDOC ---
HPI: Male Pain Time Seen by Provider: 01/05/19 05:21 Chief Complaint (Nursing): Male Genitourinary Chief Complaint (Provider): Male Genitourinary History Per: Patient History/Exam Limitations: intoxication Onset/Duration Of Symptoms: Persistent Current Symptoms Are (Timing): Still Present Quality Of Discomfort: "Pain" Additional Complaint(s): 48 year old male with a history of drug abuse presents to the ED for evaluation of multiple complaints. History is limited because patient is under the influence. He complains of pus from a wound in his head and right hernia pain. Otherwise, offers no other complaints. PMD: Dr. Sheila Mazariegos Past Medical History Reviewed: Historical Data, Nursing Documentation, Vital Signs Vital Signs: Last Vital Signs Temp 98.9 F 01/05/19 05:22 Pulse 106 H 01/05/19 05:22 Resp 18 01/05/19 05:22 BP 123/78 01/05/19 05:22 Pulse Ox 92 L 01/05/19 05:22 - Medical History PMH: Asthma, COPD, Diabetes, Schizophrenia Denies: Hepatitis, HIV, HTN, Chronic Kidney Disease, Seizures, Sexually Transmitted Disease - Surgical History Surgical History: Hernia Repair (inguinal) - Family History Family History: States: Unknown Family Hx - Immunization History Hx Tetanus Toxoid Vaccination: No (unrecall) - Home Medications Home Medications: Ambulatory Orders Medication Instructions Recorded Albuterol HFA [Ventolin HFA 90 1 puff PO Q6 PRN 02/19/18 mcg/actuation (8 g)] Acetaminophen [Tylenol 325mg tab] 650 mg PO Q6 PRN tab 02/25/18 Methylprednisolone [Medrol Dose 4 mg PO ASDIR #21 mg 02/25/18 Pack (21 tabs)] Nicotine 14 mg/24 hr [Nicoderm CQ] 1 patch TD DAILY #30 patch 02/25/18 Thiamine [Vitamin B1 Tab] 100 mg PO DAILY #30 tab 02/25/18 Albuterol HFA [Ventolin HFA 90 1 - 2 puff IH Q6 PRN #1 inhaler 10/20/18 mcg/actuation (8 g)] predniSONE [predniSONE Tab] 60 mg PO QAM #12 tab 10/20/18 Petrolatum,White [Petroleum Jelly] 1 applic TP BID PRN #1 tub 10/25/18 Albuterol HFA [Ventolin HFA 90 1 puff IH Q4 PRN #1 inh 12/02/18 mcg/actuation (8 g)] Methylprednisolone [Medrol Dose 4 mg PO ASDIR #21 mg 12/02/18 Pack (21 tabs)] Albuterol HFA [Ventolin HFA 90 1 - 2 puff IH Q6 PRN #1 inhaler 12/21/18 mcg/actuation (8 g)] predniSONE [predniSONE Tab] 60 mg PO QAM #12 tab 12/21/18 Cephalexin [cephalexin] 500 mg PO BID 7 Days #14 cap 01/05/19 Naproxen [Naprosyn] 500 mg PO BID #30 tablet 01/05/19 - Allergies Allergies/Adverse Reactions: Allergies Allergy/AdvReac Type Severity Reaction Status Date / Time No Known Allergies Allergy Verified 01/05/19 05:21 Review of Systems ROS Statement: Except As Marked, All Systems Reviewed And Found Negative Genitourinary Male: Positive for: Other (hernia) Skin: Positive for: Other (abscesses to scalp) Physical Exam - Reviewed Nursing Documentation Reviewed: Yes Vital Signs Reviewed: Yes - Physical Exam Appears: Positive for: No Acute Distress Head Exam: Positive for: ATRAUMATIC (Two minimally fluctuant abscesses to the scalp from prior wounds ), NORMOCEPHALIC Skin: Positive for: Normal Color, Warm, Dry. Negative for: Rash Eye Exam: Positive for: EOMI, Normal appearance, PERRL Neck: Positive for: Normal, Painless ROM, Supple Cardiovascular/Chest: Positive for: Regular Rate, Rhythm. Negative for: Murmur Respiratory: Positive for: Normal Breath Sounds. Negative for: Respiratory Distress Male Genital Exam: Positive for: hernia mass (reducible hernia to right inguinal area) Back: Positive for: Normal Inspection. Negative for: L CVA Tenderness, R CVA Tenderness Extremity: Positive for: Normal ROM (x 4). Negative for: Deformity Neurological/Psych: Positive for: Awake, Alert, Normal Tone, Other (appears under the influence) - ECG O2 Sat by Pulse Oximetry: 92 (RA) Pulse Ox Interpretation: Normal Medical Decision Making Medical Decision Makin:21 A&P: Abscess and reducible hernia Wound drained of pus. Patient is stable for discharge. Scribe Attestation: Documented by Raeann Ochoa, acting as a scribe for Christopher Olson MD Provider Scribe Attestation: All medical record entries made by the Scribe were at my direction and personally dictated by me. I have reviewed the chart and agree that the record accurately reflects my personal performance of the history, physical exam, medical decision making, and the department course for this patient. I have also personally directed, reviewed, and agree with the discharge instructions and disposition. Procedures - Incision and Drainage Site: Scalp Blade Size: 11 Progress: 2 mls of pus drained from each wound. Tolerated procedure well. Disposition - Clinical Impression Clinical Impression: Hernia, Abscess - Patient ED Disposition Is Patient to be Admitted: No - Disposition Referrals: Sheila Mazariegos MD [Primary Care Provider] - Disposition Time: 06:34 Condition: GOOD Prescriptions: Cephalexin [cephalexin] 500 mg PO BID 7 Days #14 cap Naproxen [Naprosyn] 500 mg PO BID #30 tablet Instructions: Inguinal and Femoral (Groin) Hernias, Abscess Incision and Drainage, Boil (DC) Forms: [employer] (Croatian)
== END 2019-01-05 06:40 | disposition home or self-care (01) ==
LOC: H.ER 04:36
DX: K46.9 Unspecified abdominal hernia without obstruction or gangrene (principal); F10.129 Alcohol abuse with intoxication, unspecified; L02.811 Cutaneous abscess of head [any part, except face]; E11.9 Type 2 diabetes mellitus without complications

== ENCOUNTER 2019-01-19 08:41 | Observation (INO) | payer MEDICAID ==
[2019-01-19 08:43] VITALS: BMI 27.8
[2019-01-19] MEDS ORDERED: Albuterol-Ipratrop 3 mg / 0.5 (3 ml) UD IH STA ×4 (08:50→15:14)
[2019-01-19] MEDS ORDERED: Naloxone 0.4 mg/ml Inj (Adult) IVP STA (08:50)
[2019-01-19] MEDS ORDERED: Albuterol-Ipratrop 3 mg / 0.5 (3 ml) UD ONE ×3 (08:51→16:00)
[2019-01-19] MEDS ORDERED: Naloxone HCl 2mg/2ml syr ONE (08:52)
--- NOTE | 2019-01-19 09:04 | ED PDOC ---
HPI: Asthma Time Seen by Provider: 01/19/19 08:49 Chief Complaint (Provider): Asthma History Per: Patient History/Exam Limitations: no limitations Additional Complaint(s): Patient is a 48 year old male with a past medical history of IV drug abuse and asthma, who presents to the emergency department after being brought by EMS. EMS was called by family because patient was found unconscious lying on stoop. Upon questioning, patient denies any IV drug use. PMD: Sheila Mazairegos Past Medical History Reviewed: Historical Data, Nursing Documentation, Vital Signs Vital Signs: Last Vital Signs Temp 97.8 F 01/19/19 08:43 Pulse 73 01/19/19 08:43 Resp 20 01/19/19 08:43 BP 150/85 01/19/19 08:43 Pulse Ox 100 01/19/19 08:43 - Medical History PMH: Asthma, COPD, Diabetes, Schizophrenia Denies: Hepatitis, HIV, HTN, Chronic Kidney Disease, Seizures, Sexually Transmitted Disease - Surgical History Surgical History: Hernia Repair (inguinal) - Family History Family History: States: Unknown Family Hx - Immunization History Hx Tetanus Toxoid Vaccination: No (unrecall) - Home Medications Home Medications: Ambulatory Orders Medication Instructions Recorded Albuterol HFA [Ventolin HFA 90 1 puff PO Q6 PRN 02/19/18 mcg/actuation (8 g)] Acetaminophen [Tylenol 325mg tab] 650 mg PO Q6 PRN tab 02/25/18 Methylprednisolone [Medrol Dose 4 mg PO ASDIR #21 mg 02/25/18 Pack (21 tabs)] Nicotine 14 mg/24 hr [Nicoderm CQ] 1 patch TD DAILY #30 patch 02/25/18 Thiamine [Vitamin B1 Tab] 100 mg PO DAILY #30 tab 02/25/18 Albuterol HFA [Ventolin HFA 90 1 - 2 puff IH Q6 PRN #1 inhaler 10/20/18 mcg/actuation (8 g)] predniSONE [predniSONE Tab] 60 mg PO QAM #12 tab 10/20/18 Petrolatum,White [Petroleum Jelly] 1 applic TP BID PRN #1 tub 10/25/18 Albuterol HFA [Ventolin HFA 90 1 puff IH Q4 PRN #1 inh 12/02/18 mcg/actuation (8 g)] Methylprednisolone [Medrol Dose 4 mg PO ASDIR #21 mg 12/02/18 Pack (21 tabs)] Albuterol HFA [Ventolin HFA 90 1 - 2 puff IH Q6 PRN #1 inhaler 12/21/18 mcg/actuation (8 g)] predniSONE [predniSONE Tab] 60 mg PO QAM #12 tab 12/21/18 Cephalexin [cephalexin] 500 mg PO BID 7 Days #14 cap 01/05/19 Naproxen [Naprosyn] 500 mg PO BID #30 tablet 01/05/19 Albuterol HFA [Ventolin HFA 90 2 puff IH Q4H #1 puff 01/19/19 mcg/actuation (8 g)] Naloxone HCl [Narcan] 4 mg NS ONCE #1 spray 01/19/19 - Allergies Allergies/Adverse Reactions: Allergies Allergy/AdvReac Type Severity Reaction Status Date / Time No Known Allergies Allergy Verified 01/05/19 05:21 Review of Systems ROS Statement: Except As Marked, All Systems Reviewed And Found Negative Neurological: Positive for: Other (Loss of consciousness ) Physical Exam - Reviewed Nursing Documentation Reviewed: Yes Vital Signs Reviewed: Yes - Physical Exam Appears: Positive for: Non-toxic, No Acute Distress Head Exam: Positive for: ATRAUMATIC, NORMOCEPHALIC Skin: Positive for: Normal Color, Warm, Dry Eye Exam: Negative for: Normal appearance (pinpoint pupils) Cardiovascular/Chest: Positive for: Regular Rate, Rhythm. Negative for: Murmur Respiratory: Positive for: Rhonchi (bilaterally ), Wheezing (expiratory wheezing bilaterally ) Gastrointestinal/Abdominal: Positive for: Normal Exam, Soft. Negative for: Tenderness Extremity: Positive for: Normal ROM. Negative for: Swelling Neurological/Psych: Negative for: Awake (somnolent), Alert (arousable to painful stimuli ) - Laboratory Results Result Diagrams: 01/19/19 09:01 - ECG O2 Sat by Pulse Oximetry: 100 (RA) Pulse Ox Interpretation: Normal - Progress Re-evaluation Time: 14:54 Condition: Re-examined (Aarousable, awake oriented x 3 No focal neuro deficits. denies Si/HI) Medical Decision Making Medical Decision Making: Time: 0849 Impression: exacerbation of asthma and will treat with duonebs and will order chest xray Plan: --Alcohol serum --CMP --Urine drug screen --CBC with differential --Chest xray --Albuterol 3 ml IH x2 --Peak flow Pre/Post tx x2 --Narcan 0.4 mg IVP Time: 918 --Patient responded to narcan by becoming awake alert and agitated. --Will continue to treat for asthma. Time: 141 Chest xray FINDINGS: LUNGS: No active pulmonary disease. PLEURA: No significant pleural effusion identified, no pneumothorax apparent. CARDIOVASCULAR: No aortic atherosclerotic calcification present. Normal cardiac size. No pulmonary vascular congestion. OSSEOUS STRUCTURES: No significant abnormalities. VISUALIZED UPPER ABDOMEN: Normal. OTHER FINDINGS: None. IMPRESSION: No active disease. Scribe Attestation: Documented by Sb Nugent, acting as a scribe Mariia Parsons MD. Provider Scribe Attestation: All medical record entries made by the Scribe were at my direction and personally dictated by me. I have reviewed the chart and agree that the record accurately reflects my personal performance of the history, physical exam, medical decision making, and the department course for this patient. I have also personally directed, reviewed, and agree with the discharge instructions and disposition. Disposition - Clinical Impression Clinical Impression: Substance abuse, Asthma exacerbation - Patient ED Disposition Is Patient to be Admitted: No Counseled Patient/Family Regarding: Diagnosis, Need For Followup, Rx Given - Disposition Referrals: [facility] [Outside] Disposition: Routine/Home Disposition Time: 14:55 Condition: FAIR Prescriptions: Albuterol HFA [Ventolin HFA 90 mcg/actuation (8 g)] 2 puff IH Q4H #1 puff Naloxone HCl [Narcan] 4 mg NS ONCE #1 spray Instructions: Asthma in Adults, Polysubstance Abuse
[2019-01-19] MEDS ORDERED: Naloxone HCl 2mg/2ml syr IVP ONE (09:32)
[2019-01-19 10:37] LABS: ALB/GLOB RATIO 1.2 (1.0-2.1); ALBUMIN 4.3 g/dL (3.5-5.0); ALT/SGPT 28 U/L (21-72); AST/SGOT 39 U/L (17-59); BLOOD UREA NITROGEN 7 mg/dl (9-20); CALCIUM 9.9 mg/dL (8.4-10.2); GFR NON-AFRICAN AMERICAN > 60
--- NOTE | 2019-01-19 14:22 | RAD ---
Date of service: 01/19/2019 HISTORY: cough COMPARISON: 02/23/2018 TECHNIQUE: 1 view obtained. FINDINGS: LUNGS: No active pulmonary disease. PLEURA: No significant pleural effusion identified, no pneumothorax apparent. CARDIOVASCULAR: No aortic atherosclerotic calcification present. Normal cardiac size. No pulmonary vascular congestion. OSSEOUS STRUCTURES: No significant abnormalities. VISUALIZED UPPER ABDOMEN: Normal. OTHER FINDINGS: None. IMPRESSION: No active disease.
[2019-01-19] MEDS ORDERED: methylPREDNISolone 125 MG in Sodium Chloride 0.9% 50 ML IVPB ONE (15:47)
--- NOTE | 2019-01-19 15:54 | CP.PCM.HP ---
<Janet Agustin - Last Filed: 01/19/19 15:52> History of Present Illness - History of Present Illness History of Present Illness: 48 yo male with a history of IV drug abuse and asthma, was brought to the E.D. by EMS because family called as he was found unconscious lying on stoop. Patient is lethargic and poor historian at this time but upon interview but able to state that his asthma has been acting up since yesterday. He reports he has not used his inhaler because he does no have refills. He denies use of any substance that caused him to be drowsy. Denies fevers, chills, rhinorrhea, cough, congestion, recent URI, chest pain, dypsnea, vomiting or abdominal pain. ROS: Negative except for stated above. PMD: none PMH: Asthma; Schizophrenia PSH: Right Inguinal Hernia repair SH: Heroin Abuse; Cocaine, heroin and Fentanil, PCP; Heavy smoking; Heavy Alcohol Use FH: States: Unknown Family Hx Allergies: NKDA Medication: reviewed ED: Vital signs: T: 97.8 ; BP: 150/85 ; HR: 73; O2 saturation: 100% room air. --Alcohol serum --CMP --Urine drug screen --CBC with differential --Albuterol 3 ml IH x2 --Peak flow Pre/Post tx x2 -- S/P Narcan 0.4 mg IVP -- CHEST X-RAY: IMPRESSION:No active disease. Present on Admission - Present on Admission Any Indicators Present on Admission: No Past Patient History - Infectious Disease Hx of Infectious Diseases: None - Past Medical History & Family History Past Medical History?: Yes - Past Social History Smoking Status: Heavy Smoker > 10 Cigarettes Daily - CARDIAC Hx Hypertension: No - PULMONARY Hx Asthma: Yes Hx Chronic Obstructive Pulmonary Disease (COPD): Yes - NEUROLOGICAL Hx Seizures: No - HEENT Hx HEENT Problems: No - RENAL Hx Chronic Kidney Disease: No - ENDOCRINE/METABOLIC Hx Endocrine Disorders: No - HEMATOLOGICAL/ONCOLOGICAL Hx Human Immunodeficiency Virus (HIV): No - INTEGUMENTARY Hx Dermatological Problems: No - MUSCULOSKELETAL/RHEUMATOLOGICAL Hx Musculoskeletal Disorders: No - GASTROINTESTINAL Hx Gastrointestinal Disorders: Yes Other/Comment: Hx right inguinal hernia - GENITOURINARY/GYNECOLOGICAL Hx Sexually Transmitted Disorders: No - PSYCHIATRIC Hx Schizophrenia: Yes - SURGICAL HISTORY Hx Surgeries: No - ANESTHESIA Hx Anesthesia: No Hx Anesthesia Reactions: No Hx Malignant Hyperthermia: No Meds Home Medications: Home Medication List Medication Instructions Recorded Confirmed Type Albuterol HFA [Ventolin HFA 90 2 puff IH Q4H #1 puff 01/19/19 Rx mcg/actuation (8 g)] Naloxone HCl [Narcan] 4 mg NS ONCE #1 spray 01/19/19 Rx Allergies/Adverse Reactions: Allergies Allergy/AdvReac Type Severity Reaction Status Date / Time No Known Allergies Allergy Verified 01/05/19 05:21 Physical Exam - Constitutional Appears: Combative, Agitated, Confused Additional comments: Lethargic - Eye Exam Eye Exam: Normal appearance, PERRL - Respiratory Exam Respiratory Exam: Wheezes (expiratory wheeze). absent: Accessory Muscle Use, Chest Wall Tenderness, Decreased Breath Sounds, Prolonged Expiratory Phase, Rales, Rhonchi, Respiratory Distress, Stridor - Cardiovascular Exam Cardiovascular Exam: REGULAR RHYTHM, +S1, +S2 - GI/Abdominal Exam GI & Abdominal Exam: Normal Bowel Sounds, Soft. absent: Distended, Firm, Guarding, Rebound, Rigid, Tenderness - Extremities Exam Additional comments: Dry lower legs bilaterally; Scar present on forehead. - Neurological Exam Additional comments: Oriented to self and to place. - Skin Skin Exam: Dry, Intact, Normal Color, Warm Results - Vital Signs Recent Vital Signs: Last Vital Signs Temp 97.8 F 01/19/19 08:43 Pulse 69 01/19/19 12:05 Resp 20 01/19/19 12:05 BP 150/85 01/19/19 08:43 Pulse Ox 100 01/19/19 14:57 - Labs Result Diagrams: 01/19/19 09:01 Labs: Laboratory Results - last 24 hr 01/19/19 01/19/19 09:00 09:01 Sodium 138 Potassium 4.1 Chloride 104 Carbon Dioxide 24 Anion Gap 14 BUN 7 L Creatinine 0.6 L Est GFR ( Amer) > 60 Est GFR (Non-Af Amer) > 60 POC Glucose (mg/dL) 105 Random Glucose 99 Calcium 9.9 Total Bilirubin 0.5 AST 39 ALT 28 Alkaline Phosphatase 105 Total Protein 7.8 Albumin 4.3 Globulin 3.6 Albumin/Globulin Ratio 1.2 Alcohol, Quantitative < 10 Assessment & Plan (1) DVT prophylaxis Status: Acute (2) Asthma exacerbation Status: Acute Priority: High (3) Substance abuse Status: Chronic - Assessment and Plan (Free Text) Assessment: 48 yo male with a history of IV drug abuse and asthma presented to ED with AMS and asthma exacerbation admitted for observation for lethargy and asthma exacerbation management. Plan: 1. Asthma exacerbation - Admit to telemetry - VSS - F/U CBC - Blood cultures - Solu-medrol 125mg x1 - Levaquin 500mg daily - IVF @ 150mLs/hr 2. Altered Mental status - possibly secondary to ingestion of a substance - pending drug screen - S/P Naloxone 3. Diet - Regular diet 4. DVT prophylaxis - Lovenox <StuartFrankie D - Last Filed: 01/19/19 18:19> Results - Vital Signs Recent Vital Signs: Last Vital Signs Temp 97.8 F 01/19/19 08:43 Pulse 82 01/19/19 17:50 Resp 18 01/19/19 17:50 BP 125/87 01/19/19 17:50 Pulse Ox 97 01/19/19 17:50 - Labs Result Diagrams: 01/19/19 16:00 01/19/19 09:01 Labs: Laboratory Results - last 24 hr 01/19/19 01/19/19 01/19/19 09:00 09:01 16:00 WBC 12.1 H D RBC 4.82 Hgb 14.2 D Hct 43.3 MCV 90.0 D MCH 29.4 MCHC 32.7 L RDW 14.5 Plt Count 419 H D MPV 8.2 Neut % (Auto) 90.8 H Lymph % (Auto) 6.1 L [place] % (Auto) 2.7 Eos % (Auto) 0.0 Baso % (Auto) 0.4 Neut # (Auto) 11.0 H Lymph # (Auto) 0.7 L [place] # (Auto) 0.3 Eos # (Auto) 0.0 Baso # (Auto) 0.0 Sodium 138 Potassium 4.1 Chloride 104 Carbon Dioxide 24 Anion Gap 14 BUN 7 L Creatinine 0.6 L Est GFR ( Amer) > 60 Est GFR (Non-Af Amer) > 60 POC Glucose (mg/dL) 105 Random Glucose 99 Calcium 9.9 Total Bilirubin 0.5 AST 39 ALT 28 Alkaline Phosphatase 105 Total Protein 7.8 Albumin 4.3 Globulin 3.6 Albumin/Globulin Ratio 1.2 Alcohol, Quantitative < 10 Attending/Attestation - Attestation I have personally seen and examined this patient.: Yes I have fully participated in the care of the patient.: Yes I have reviewed all pertinent clinical information: Yes Notes (Text): 01/19/19 18:19 Patient seen and examined with resident. Case discussed and agreed with assessment and plan of management.
[2019-01-19] MEDS ORDERED: levoFLOXacin 500 mg in D5W 500 MG/100 ML BAG IVPB ONE (16:01)
[2019-01-19] MEDS: Sodium Chloride 0.9% 1,000 ML IV SCH ×2 (16:04→23:06)
[2019-01-19] MEDS: levoFLOXacin 500 mg in D5W 500 MG/100 ML BAG IVPB SCH (16:14)
[2019-01-19 16:26] LABS: BASO % 0.4 % (0.0-2.0); HEMOGLOBIN 14.2 g/dL (12.0-18.0); LYMPH # 0.7 K/uL (1.0-4.3); LYMPH % 6.1 % (20.0-40.0); MEAN CORPUSCULAR HEMOGLOBIN 29.4 pg (27.0-31.0); MEAN CORPUSCULAR HGB CONC 32.7 g/dL (33.0-37.0); MEAN PLATELET VOLUME 8.2 fl (7.2-11.7); MONO # 0.3 K/uL (0.0-0.8); MONO % 2.7 % (0.0-10.0); NEUT % 90.8 % (50.0-75.0); PLATELET COUNT 419 K/uL (130-400); RBC 4.82 Mil/uL (4.40-5.90); RED CELL DISTRIBUTION WIDTH 14.5 % (11.5-14.5); WHITE BLOOD COUNT 12.1 K/uL (4.8-10.8)
[2019-01-19] MEDS: Albuterol-Ipratrop 3 mg / 0.5 (3 ml) UD INH PRN ×2 (19:34→23:47)
[2019-01-19 20:50] LABS: BANDS 2 % (0-2); LYMPHOCYTE 6 % (20-50); MONOCYTE 4 % (0-10); NEUTROPHIL 88 % (42-75); TOTAL CELLS COUNTED 100
[2019-01-19 20:51] LABS: PLATELET ESTIMATE NORMAL (NORMAL)
[2019-01-20 05:04] VITALS: O2SAT 93
[2019-01-20] MEDS: Sodium Chloride 0.9% 1,000 ML IV SCH (05:21)
[2019-01-20 05:40] LABS: BASO # 0.1 K/uL (0.0-0.2); BASO % 0.3 % (0.0-2.0); HEMOGLOBIN 12.8 g/dL (12.0-18.0); LYMPH # 1.1 K/uL (1.0-4.3); LYMPH % 5.1 % (20.0-40.0); MEAN CELL VOLUME 89.9 fl (80.0-94.0); MEAN CORPUSCULAR HEMOGLOBIN 28.8 pg (27.0-31.0); MONO # 1.2 K/uL (0.0-0.8); MONO % 5.5 % (0.0-10.0); NEUT # 18.8 K/uL (1.8-7.0); NEUT % 89.1 % (50.0-75.0); RBC 4.44 Mil/uL (4.40-5.90); RED CELL DISTRIBUTION WIDTH 14.7 % (11.5-14.5); WHITE BLOOD COUNT 21.1 K/uL (4.8-10.8)
[2019-01-20 06:22] LABS: BLOOD UREA NITROGEN 12 mg/dl (9-20); CALCIUM 9.6 mg/dL (8.4-10.2); GFR NON-AFRICAN AMERICAN > 60
[2019-01-20] MEDS: Albuterol-Ipratrop 3 mg / 0.5 (3 ml) UD INH SCH ×2 (08:41→13:25)
[2019-01-20] MEDS ORDERED: Pantoprazole 40 mg EC Tab PO SCH (09:00)
[2019-01-20] MEDS ORDERED: Enoxaparin 40 mg Syringe SC SCH (09:00)
--- NOTE | 2019-01-20 11:58 | CP.PCM.DIS ---
<Janet Agustin - Last Filed: 01/20/19 11:54> Provider - Provider Date of Admission: 01/19/19 15:14 Attending physician: Frankie Stuart MD Time Spent in preparation of Discharge (in minutes): 30 Diagnosis - Discharge Diagnosis (1) Asthma exacerbation Status: Acute Priority: High Comment: - Solu-medrol 125mg x1. - Levaquin 500mg daily (2) Substance abuse Status: Chronic Comment: - possibly secondary to ingestion of a substance. - pending drug screen. - S/P Naloxone Hospital Course - Lab Results Lab Results: Most Recent Lab Values WBC 21.1 K/uL (4.8-10.8) H D 01/20/19 04:35 RBC 4.44 Mil/uL (4.40-5.90) 01/20/19 04:35 Hgb 12.8 g/dL (12.0-18.0) 01/20/19 04:35 Hct 39.9 % (35.0-51.0) 01/20/19 04:35 MCV 89.9 fl (80.0-94.0) 01/20/19 04:35 MCH 28.8 pg (27.0-31.0) 01/20/19 04:35 MCHC 32.0 g/dL (33.0-37.0) L 01/20/19 04:35 RDW 14.7 % (11.5-14.5) H 01/20/19 04:35 Plt Count 377 K/uL (130-400) 01/20/19 04:35 MPV 8.0 fl (7.2-11.7) 01/20/19 04:35 Neut % (Auto) 89.1 % (50.0-75.0) H 01/20/19 04:35 Lymph % (Auto) 5.1 % (20.0-40.0) L 01/20/19 04:35 Ponce % (Auto) 5.5 % (0.0-10.0) 01/20/19 04:35 Eos % (Auto) 0.0 % (0.0-4.0) 01/20/19 04:35 Baso % (Auto) 0.3 % (0.0-2.0) 01/20/19 04:35 Neut # (Auto) 18.8 K/uL (1.8-7.0) H 01/20/19 04:35 Lymph # (Auto) 1.1 K/uL (1.0-4.3) 01/20/19 04:35 Ponce # (Auto) 1.2 K/uL (0.0-0.8) H 01/20/19 04:35 Eos # (Auto) 0.0 K/uL (0.0-0.7) 01/20/19 04:35 Baso # (Auto) 0.1 K/uL (0.0-0.2) 01/20/19 04:35 Neutrophils % (Manual) 88 % (42-75) H 01/19/19 16:00 Band Neutrophils % 2 % (0-2) 01/19/19 16:00 Lymphocytes % (Manual) 6 % (20-50) L 01/19/19 16:00 Monocytes % (Manual) 4 % (0-10) 01/19/19 16:00 Platelet Estimate Normal (NORMAL) 01/19/19 16:00 Sodium 137 mmol/l (132-148) 01/20/19 04:35 Potassium 3.9 MMOL/L (3.6-5.0) 01/20/19 04:35 Chloride 105 mmol/L (98-107) 01/20/19 04:35 Carbon Dioxide 25 mmol/L (22-30) 01/20/19 04:35 Anion Gap 11 (10-20) 01/20/19 04:35 BUN 12 mg/dl (9-20) 01/20/19 04:35 Creatinine 0.6 mg/dl (0.8-1.5) L 01/20/19 04:35 Est GFR ( Amer) > 60 01/20/19 04:35 Est GFR (Non-Af Amer) > 60 01/20/19 04:35 POC Glucose (mg/dL) 105 mg/dL (65-110) 01/19/19 09:00 Random Glucose 118 mg/dL (75-110) H 01/20/19 04:35 Calcium 9.6 mg/dL (8.4-10.2) 01/20/19 04:35 Total Bilirubin 0.5 mg/dl (0.2-1.3) 01/19/19 09:01 AST 39 U/L (17-59) 01/19/19 09:01 ALT 28 U/L (21-72) 01/19/19 09: Alkaline Phosphatase 105 U/L (38-126) 01/19/19 09:01 Total Protein 7.8 G/DL (6.3-8.2) 01/19/19 09: Albumin 4.3 g/dL (3.5-5.0) 01/19/19 09: Globulin 3.6 gm/dL (2.2-3.9) 01/19/19 09: Albumin/Globulin Ratio 1.2 (1.0-2.1) 01/19/19: Alcohol, Quantitative < 10 mg/dl (0-10) 01/19/19 09: - Hospital Course Hospital Course: 48 yo male with a history of IV drug abuse and asthma presented to ED with AMS and asthma exacerbation admitted for observation for lethargy and asthma excerbation management. During his hospital stay, patient was hemodynamically stable with one or two episodes of desaturation down to 92% on room air. Afebfrile, found to have leukocytosis with negative chest xray. Was started on Levaquin and given one dose of solumedrol 125mg. Was kept on Duonebs around the clock. Will be discharged with prescriptions. Discharge Exam - Head Exam Head Exam: ATRAUMATIC, NORMOCEPHALIC - Eye Exam Eye Exam: Normal appearance - ENT Exam ENT Exam: Mucous Membranes Moist - Respiratory Exam Respiratory Exam: Clear to PA & Lateral, Wheezes (mild expiratory wheezing), NORMAL BREATHING PATTERN, UNREMARKABLE. absent: Accessory Muscle Use, Chest Wall Tenderness, Decreased Breath Sounds, Prolonged Expiratory Phase, Rales, Rhonchi, Respiratory Distress, Stridor - Cardiovascular Exam Cardiovascular Exam: REGULAR RHYTHM, +S1, +S2 - GI/Abdominal Exam GI & Abdominal Exam: Normal Bowel Sounds, Soft, Unremarkable. absent: Diminished Bowel Sounds, Firm, Guarding, Hernia, Mass, Pulsatile Mass, Rebound, Rigid, Tenderness - Extremities Exam Extremities exam: normal capillary refill, normal inspection, pedal pulses present - Neurological Exam Neurological exam: Alert, Oriented x3 - Psychiatric Exam Psychiatric exam: Normal Affect, Normal Mood - Skin Skin Exam: Dry, Intact, Normal Color, Warm Discharge Plan - Discharge Medications Prescriptions: Albuterol HFA [Ventolin HFA 90 mcg/actuation (8 g)] 1 puff IH Q4 PRN #1 inh PRN Reason: Wheezing Albuterol HFA [Ventolin HFA 90 mcg/actuation (8 g)] 2 puff IH Q4H #1 puff Fluticasone/Salmeterol 100/50 [Advair Diskus 100/50] 1 puff INH BID #1 puff Levofloxacin [Levaquin] 500 mg PO DAILY #7 tablet Methylprednisolone [Medrol Dose Pack (21 tabs)] 4 mg PO ASDIR #21 mg - Follow Up Plan Condition: FAIR Disposition: HOME/ ROUTINE Patient education suggested?: Yes Instructions: Asthma in Adults, Polysubstance Abuse Additional Instructions: follow up appt with on 02/03/19 3:20pm Referrals: [facility] [Outside] <Frankie Stuart - Last Filed: 01/20/19 13:29> Provider - Provider Date of Admission: 01/19/19 15:14 Attending physician: Frankie Stuart MD Hospital Course - Lab Results Lab Results: Most Recent Lab Values WBC 21.1 K/uL (4.8-10.8) H D 01/20/19 04:35 RBC 4.44 Mil/uL (4.40-5.90) 01/20/19 04:35 Hgb 12.8 g/dL (12.0-18.0) 01/20/19 04:35 Hct 39.9 % (35.0-51.0) 01/20/19 04:35 MCV 89.9 fl (80.0-94.0) 01/20/19 04:35 MCH 28.8 pg (27.0-31.0) 01/20/19 04:35 MCHC 32.0 g/dL (33.0-37.0) L 01/20/19 04:35 RDW 14.7 % (11.5-14.5) H 01/20/19 04:35 Plt Count 377 K/uL (130-400) 01/20/19 04:35 MPV 8.0 fl (7.2-11.7) 01/20/19 04:35 Neut % (Auto) 89.1 % (50.0-75.0) H 01/20/19 04:35 Lymph % (Auto) 5.1 % (20.0-40.0) L 01/20/19 04:35 Ponce % (Auto) 5.5 % (0.0-10.0) 01/20/19 04:35 Eos % (Auto) 0.0 % (0.0-4.0) 01/20/19 04:35 Baso % (Auto) 0.3 % (0.0-2.0) 01/20/19 04:35 Neut # (Auto) 18.8 K/uL (1.8-7.0) H 01/20/19 04:35 Lymph # (Auto) 1.1 K/uL (1.0-4.3) 01/20/19 04:35 Ponce # (Auto) 1.2 K/uL (0.0-0.8) H 01/20/19 04:35 Eos # (Auto) 0.0 K/uL (0.0-0.7) 01/20/19 04:35 Baso # (Auto) 0.1 K/uL (0.0-0.2) 01/20/19 04:35 Neutrophils % (Manual) 88 % (42-75) H 01/19/19 16:00 Band Neutrophils % 2 % (0-2) 01/19/19 16:00 Lymphocytes % (Manual) 6 % (20-50) L 01/19/19 16:00 Monocytes % (Manual) 4 % (0-10) 01/19/19 16:00 Platelet Estimate Normal (NORMAL) 01/19/19 16:00 Sodium 137 mmol/l (132-148) 01/20/19 04:35 Potassium 3.9 MMOL/L (3.6-5.0) 01/20/19 04:35 Chloride 105 mmol/L (98-107) 01/20/19 04:35 Carbon Dioxide 25 mmol/L (22-30) 01/20/19 04:35 Anion Gap 11 (10-20) 01/20/19 04:35 BUN 12 mg/dl (9-20) 01/20/19 04:35 Creatinine 0.6 mg/dl (0.8-1.5) L 01/20/19 04:35 Est GFR ( Amer) > 60 01/20/19 04:35 Est GFR (Non-Af Amer) > 60 01/20/19 04:35 POC Glucose (mg/dL) 105 mg/dL (65-110) 01/19/19 09:00 Random Glucose 118 mg/dL (75-110) H 01/20/19 04:35 Calcium 9.6 mg/dL (8.4-10.2) 01/20/19 04:35 Total Bilirubin 0.5 mg/dl (0.2-1.3) 01/19/19 09:01 AST 39 U/L (17-59) 01/19/19 09:01 ALT 28 U/L (21-72) 01/19/19 09:01 Alkaline Phosphatase 105 U/L (38-126) 01/19/19 09:01 Total Protein 7.8 G/DL (6.3-8.2) 01/19/19 09:01 Albumin 4.3 g/dL (3.5-5.0) 01/19/19 09:01 Globulin 3.6 gm/dL (2.2-3.9) 01/19/19 09:01 Albumin/Globulin Ratio 1.2 (1.0-2.1) 01/19/19 09:01 Alcohol, Quantitative < 10 mg/dl (0-10) 01/19/19 09:01 Attending/Attestation - Attestation I have personally seen and examined this patient.: Yes I have fully participated in the care of the patient.: Yes I have reviewed all pertinent clinical information, including history, physical exam and plan: Yes Notes (Text): 01/20/19 13:29 Patient seen and examined with resident. Case discussed and agreed with assessment. Patient discharged in stable condition.
[2019-01-20 12:43] VITALS: BP 112/59; PULSE 110; RESP 21; TEMP 99.3
[2019-01-20] MEDS: levoFLOXacin 500 mg in D5W 500 MG/100 ML BAG IVPB SCH (12:58)
[2019-01-20 16:01] LABS: PHENCYCLIDINE, UR NEGATIVE (NEGATIVE)
[2019-01-20 16:14] LABS: BARBITURATES, UR NEGATIVE (NEGATIVE); BENZODIAZEPINES, UR NEGATIVE (NEGATIVE); OPIATES, UR POSITIVE (NEGATIVE)
== END 2019-01-20 14:30 | disposition home or self-care (01) ==
LOC: H.ER 08:41 → H.ERHOLD 15:14 → H.TEL 18:48
DX: J45.901 Unspecified asthma with (acute) exacerbation (principal); F11.10 Opioid abuse, uncomplicated; E11.9 Type 2 diabetes mellitus without complications; F20.9 Schizophrenia, unspecified; J44.9 Chronic obstructive pulmonary disease, unspecified; F17.210 Nicotine dependence, cigarettes, uncomplicated
CPT/HCPCS: 36415; 71045; 80048; 80053; 80320; 80324; 80345; 80346; 80349; 80353; 80358; 80361; 82948; 83992; 85025; 87040; 94640; 96372; 96374; 96375; 96376; 99284; G0378; J1650; J2930; J7030

== ENCOUNTER 2019-02-09 09:41 | Emergency (ER) | payer MEDICAID ==
[2019-02-09 09:48] VITALS: BMI 25.8
[2019-02-09 09:49] VITALS: BP 119/74; PULSE 71; RESP 16; TEMP 98; O2SAT 96
== END 2019-02-09 10:40 | disposition left against medical advice (07) ==
LOC: H.ER 09:41
DX: Z02.89 Encounter for other administrative examinations (principal)

== ENCOUNTER 2019-02-15 15:18 | Emergency (ER) | payer MEDICAID ==
[2019-02-15 15:18] VITALS: BMI 25.8
[2019-02-15] MEDS ORDERED: Naloxone 0.4 mg/ml Inj (Adult) IVP STA ×2 (15:40→15:45)
[2019-02-15] MEDS ORDERED: Naloxone 0.4 mg/ml Inj (Adult) ONE ×2 (15:43→15:47)
[2019-02-15] MEDS ORDERED: Sodium Chloride 0.9% 1,000 ML IV STA (15:51)
--- NOTE | 2019-02-15 16:58 | ED PDOC ---
HPI: Psych/Substance Abuse Time Seen by Provider: 02/15/19 15:29 Chief Complaint (Nursing): Substance Abuse Chief Complaint (Provider): substance abuse/poss syncope ED Caveat: Intoxicated History Per: EMS History/Exam Limitations: clinical condition, intoxication Onset/Duration Of Symptoms: Hrs Current Symptoms Are (Timing): Still Present Modifying Factor(s): Other (poss opioid ingestion) Severity: Severe Additional History Per: EMS Additional Complaint(s): 48 year old male with a history of substance abuse and asthma brought in by EMS on stretcher after patient was found unresponsive on side walk. Patient is unknown patient to ED in past, seen multiple times for substance abuse and was recently admitted for asthma exacerbation and substance abuse. Patient unable to provide history due to level of intoxication. Past Medical History Reviewed: Historical Data, Nursing Documentation, Vital Signs Vital Signs: Last Vital Signs Temp 98 F 02/15/19 15:23 Pulse 83 02/15/19 15:53 Resp 19 02/15/19 15:53 BP 128/74 02/15/19 15:23 Pulse Ox 100 02/15/19 15:53 CANDIE Report Viewed: Yes Primary Care Provider: FAMILY PROVIDER,NO - Medical History PMH: Asthma, COPD, Diabetes, Schizophrenia Denies: Hepatitis, HIV, HTN, Chronic Kidney Disease, Seizures, Sexually Transmitted Disease - Surgical History Surgical History: Hernia Repair (inguinal) - Family History Family History: States: Unknown Family Hx - Social History Alcohol: None Drugs: Opiates - Immunization History Hx Tetanus Toxoid Vaccination: No (unrecall) - Home Medications Home Medications: Ambulatory Orders Medication Instructions Recorded Naproxen [Naprosyn] 500 mg PO BID #30 tablet 01/05/19 Albuterol HFA [Ventolin HFA 90 1 puff IH Q4 PRN #1 inh 01/20/19 mcg/actuation (8 g)] Fluticasone/Salmeterol 100/50 1 puff INH BID #1 puff 01/20/19 [Advair Diskus 100/50] - Allergies Allergies/Adverse Reactions: Allergies Allergy/AdvReac Type Severity Reaction Status Date / Time No Known Allergies Allergy Verified 02/15/19 15:19 Review of Systems Review Of Systems: ROS cannot be obtained secondary to pt's inabilty to answer questions. Physical Exam - Reviewed Nursing Documentation Reviewed: Yes Vital Signs Reviewed: Yes - Physical Exam Appears: Positive for: Well, No Acute Distress Head Exam: Positive for: ATRAUMATIC, NORMAL INSPECTION, NORMOCEPHALIC Skin: Positive for: Normal Color, Warm. Negative for: Diaphoresis, Pallor, Rash, Jaundice, Mottled, Cyanosis Eye Exam: Positive for: Other (pinpoint pupils bilat ) ENT: Positive for: Normal ENT Inspection Neck: Positive for: Normal, Painless ROM, Supple Cardiovascular/Chest: Positive for: Regular Rate, Rhythm, Other (neg for signs of injury) Respiratory: Positive for: CNT, Normal Breath Sounds Gastrointestinal/Abdominal: Positive for: Normal Exam, Bowel Sounds (normoactive ), Soft. Negative for: Tenderness Back: Positive for: Normal Inspection, Other (neg for signs of injury) Extremity: Positive for: Normal ROM. Negative for: Deformity Neurological/Psych: Positive for: Lethargic (unable to arise with voice, tactile or painful stimuli ). Negative for: Facial Droop - ECG O2 Sat by Pulse Oximetry: 100 Medical Decision Making Medical Decision Makin:42 Patient given first dose of Narcan iv with ni improvement in mental status. Patient sat upright in bed, maintaining airway. 02 sat: 100% on [address] cho at bedside examining patient. 15:45 Patient did not respond to first dose of narcan, second dose given. After second dose patient responsive to painful sternal rub but not alert enough to answer questions. Patient falls back to sleep. 17:16 Patient sleeping. no acute distress. hr: 66 b/p:103/61 rr: 14 o2sat: 98% rmair 20:00 Patient sleeping. Arousable to painful stimuli. Maintained on 1:1 for safety. patient endorsed to Zaina Gardiner to monitor for sobriety. Accession No. : [id number] Patient Name / ID : JEFFREY BLACKMAN / [id number] Exam Date : 02/15/2019 17:22:38 ( Approved ) Study Comment : Sex / Age : M / 48Y Creator : Jenn Duvall MD Dictator : Jenn Duvall MD Condenser Operator : General Adjuster : Jenn Duvall MD Approver2 : Report Date : 02/15/2019 17:41:55 My Comment : Date of service: 02/15/2019 PROCEDURE: CT HEAD WITHOUT CONTRAST. HISTORY: lethargy COMPARISON: Noncontrast head CT performed 12/25/18 TECHNIQUE: Axial computed tomography images were obtained through the head/brain without intravenous contrast. Radiation dose: Total exam DLP = 1132.07 mGy-cm. This CT exam was performed using one or more of the following dose reduction techniques: Automated exposure control, adjustment of the mA and/or kV according to patient size, and/or use of iterative reconstruction technique. FINDINGS: Motion artifact limits evaluation. HEMORRHAGE: No intracranial hemorrhage. BRAIN: No mass effect or edema. Intracranial atherosclerotic calcifications. The hilario-white matter differentiation appears intact. Please note that MRI with diffusion imaging is more sensitive in the detection of acute ischemic event. VENTRICLES: No hydrocephalus. CALVARIUM: Unremarkable. PARANASAL SINUSES: Extensive mucosal thickening of the ethmoid air cells. Mucosal thickening of bilateral maxillary and sphenoid sinuses. Mucosal polyp/retention cysts within the left maxillary sinus. MASTOID AIR CELLS: Unremarkable as visualized. No inflammatory changes. OTHER FINDINGS: Question left nasal bone fracture deformity, suboptimally assessed due to motion. IMPRESSION: Motion artifact limits evaluation. No acute intracranial pathology identified. Extensive mucosal thickening of the ethmoid air cells. Mucosal thickening of bilateral maxillary and sphenoid sinuses. Correlate clinically for sinusitis. Mucosal polyp/retention cyst within the left maxillary sinus. Question left nasal bone fracture deformity, suboptimally assessed due to motion. Disposition - Clinical Impression Clinical Impression: Substance abuse - Patient ED Disposition Is Patient to be Admitted: Transfer of Care Counseled Patient/Family Regarding: Diagnosis - Disposition Disposition: Transfer of Care Disposition Time: 20:00 Condition: STABLE Forms: Sodraft (Cuban) Patient Signed Over To: Zaina Alonzo Handoff Comments: Pending sobriety. - POA Present On Arrival: None
--- NOTE | 2019-02-15 17:45 | CT ---
Date of service: 02/15/2019 PROCEDURE: CT HEAD WITHOUT CONTRAST. HISTORY: lethargy COMPARISON: Noncontrast head CT performed 12/25/18 TECHNIQUE: Axial computed tomography images were obtained through the head/brain without intravenous contrast. Radiation dose: Total exam DLP = 1132.07 mGy-cm. This CT exam was performed using one or more of the following dose reduction techniques: Automated exposure control, adjustment of the mA and/or kV according to patient size, and/or use of iterative reconstruction technique. FINDINGS: Motion artifact limits evaluation. HEMORRHAGE: No intracranial hemorrhage. BRAIN: No mass effect or edema. Intracranial atherosclerotic calcifications. The hilario-white matter differentiation appears intact. Please note that MRI with diffusion imaging is more sensitive in the detection of acute ischemic event. VENTRICLES: No hydrocephalus. CALVARIUM: Unremarkable. PARANASAL SINUSES: Extensive mucosal thickening of the ethmoid air cells. Mucosal thickening of bilateral maxillary and sphenoid sinuses. Mucosal polyp/retention cysts within the left maxillary sinus. MASTOID AIR CELLS: Unremarkable as visualized. No inflammatory changes. OTHER FINDINGS: Question left nasal bone fracture deformity, suboptimally assessed due to motion. IMPRESSION: Motion artifact limits evaluation. No acute intracranial pathology identified. Extensive mucosal thickening of the ethmoid air cells. Mucosal thickening of bilateral maxillary and sphenoid sinuses. Correlate clinically for sinusitis. Mucosal polyp/retention cyst within the left maxillary sinus. Question left nasal bone fracture deformity, suboptimally assessed due to motion.
[2019-02-16 00:32] VITALS: O2SAT 94
--- NOTE | 2019-02-16 01:01 | ED PDOC ---
- ECG O2 Sat by Pulse Oximetry: 94 - Progress ED Course And Treament: Case endorsed to typewriter repairer from [facility] SANTIAGO pending sobriety 21:30 Patient sleeping, no distress; vitals stable on monitor 23:00 Patient sleeping, no distress; vitals stable on monitor 02/16/19 00:45 Patient awake, alert, oriented x3. Ambulating steady gait. Requesting to be discharged Vitals stable Disposition - Clinical Impression Clinical Impression: Substance abuse - POA Present On Arrival: None - Disposition Disposition: Routine/Home Disposition Time: 00:45 Condition: IMPROVED Instructions: Drug Abuse and Drug Addiction (DC)
[2019-02-16 01:09] VITALS: BP 114/76; PULSE 78; RESP 16; TEMP 97.8
== END 2019-02-16 01:00 | disposition home or self-care (01) ==
LOC: H.ER 15:18
DX: F19.10 Other psychoactive substance abuse, uncomplicated (principal); E11.9 Type 2 diabetes mellitus without complications; Z86.59 Personal history of other mental and behavioral disorders; J44.9 Chronic obstructive pulmonary disease, unspecified; J45.901 Unspecified asthma with (acute) exacerbation
CPT/HCPCS: 70450; 80320; 82948; 96374; 99285; J2310; J7030